=== PATIENT | male | born 1955 | race Caucasian/White ===

== ENCOUNTER 2018-03-22 07:38 | Inpatient (IN) | payer MEDICARE ==
[2018-03-22] MEDS ORDERED: DILTIAZEM DRIP BOLUS FROM BAG 1 MG SOLN IV ONE (08:08)
[2018-03-22 08:42] LABS: Albumin 3.7 g/dL (3.5-5.0); Calcium 8.3 mg/dL (8.4-10.2); Potassium 5.2 mmol/L (3.5-5.1); Total Bilirubin 2.2 mg/dL (0.2-1.3); Total Protein 6.5 g/dL (6.3-8.2)
[2018-03-22] MEDS ORDERED: FUROSEMIDE 10 MG/ML 4 ML VIAL IV STA (08:44)
[2018-03-22] MEDS: DILTIAZEM 50 MG in SODIUM CHLORIDE 0.9% 40 ML IV SCH ×3 (08:45→16:32)
[2018-03-22 08:51] LABS: Anisocytosis Slight; Basophils % (A) 0 %; Eosinophils % (A) 0 %; HCT 32.8 % (39.0-53.0); HGB 9.9 gm/dL (13.0-17.5); Hypochromasia Marked; Lymphocytes # (A) 0.4 k/uL (1.0-4.8); Lymphocytes % (A) 6 %; MCH 29.2 pg (25.0-35.0); MCHC 30.2 g/dL (31.0-37.0); MCV 96.8 fL (80.0-100.0); Macrocytosis Slight; Mean Platelet Volume 8.6; Monocytes # (A) 0.4 k/uL (0-1.0); Monocytes % (A) 5 %; Neutrophils # (A) 6.3 k/uL (1.3-7.7); Neutrophils % (A) 88 %; Platelet Count 164 k/uL (150-450); Poikilocytosis Slight; RBC 3.39 m/uL (4.30-5.90); WBC 7.2 k/uL (3.8-10.6)
--- NOTE | 2018-03-22 08:55 | XR ---
EXAMINATION TYPE: XR chest 2V DATE OF EXAM: 03/22/2018 COMPARISON: 06/08/2014 HISTORY: Shortness of breath for one week TECHNIQUE: Frontal and lateral views of the chest are obtained. FINDINGS: There is a new moderate right layering pleural effusion and associated right-sided airspac e disease. Heart appears enlarged in comparison to the prior. No new left-sided airspace disease. Mil d degenerative changes of the thoracic spine and acromioclavicular joints are present. IMPRESSION: 1. Apparent increase in degree of cardiomegaly. Echocardiogram could be performed to evaluate for per icardial effusion. 2. New moderate right pleural effusion and associated right basilar airspace disease, likely atelecta sis.
[2018-03-22 09:00] LABS: Polychromasia Present
[2018-03-22 09:06] LABS: Creatine Kinase MB 5.6 ng/mL (0.0-2.4); INR 1.6 (<1.2); Partial Thromboplastin Time 26.1 sec (22.0-30.0); Prothrombin Time 14.7 sec (9.0-12.0); Troponin I 0.025 ng/mL (0.000-0.034)
--- NOTE | 2018-03-22 09:20 | ED ---
General Adult HPI - General Chief complaint: Shortness of Breath Stated complaint: fluid retention Time Seen by Provider: 03/22/18 07:51 Source: patient, RN notes reviewed Mode of arrival: wheelchair Limitations: no limitations - History of Present Illness Initial comments: This a 63-year-old male presents emergency Department chief complaint of bilateral leg swelling, shortness of breath. Patient states this has progressively worsened over the last 1 week. Patient states that he has no history of CHF. He does admit that he does have A. fib currently takes Coumadin. Patient states that he had an echocardiogram at then last year. Patient states that he was told he had some mitral valve issues states that he was not informed that his ejection fracture was decreased. Patient denies any current chest pain. He does admit to some orthopnea and leg swelling has progressively worse especially in the right leg. Denies any pain associated. Patient denies fever, chills. Patient has a history of hypertension, A. fib and recent diagnosis of prostate cancer. - Related Data Home Medications Medication Instructions Recorded Confirmed Allopurinol [Zyloprim] 100 mg PO DAILY 03/22/18 03/22/18 Ascorbic Acid [Vitamin C] 500 mg PO DAILY 03/22/18 03/22/18 Atenolol [Tenormin] 50 mg PO DAILY 03/22/18 03/22/18 Cyanocobalamin (Vitamin B-12) 1,000 mcg PO DAILY 03/22/18 03/22/18 [Vitamin B-12] Magnesium Oxide [Mag-Ox] 250 mg PO DAILY 03/22/18 03/22/18 Niacin 500 mg PO DAILY 03/22/18 03/22/18 Potassium 99 mg PO DAILY 03/22/18 03/22/18 Warfarin [Coumadin] 6 mg PO DAILY 03/22/18 03/22/18 Allergies Allergy/AdvReac Type Severity Reaction Status Date / Time colchicine Allergy Unknown Verified 03/22/18 08:30 probenecid Allergy Unknown Verified 03/22/18 08:30 Review of Systems ROS Statement: Those systems with pertinent positive or pertinent negative responses have been documented in the HPI. ROS Other: All systems not noted in ROS Statement are negative. Past Medical History Past Medical History: Atrial Fibrillation, Hypertension Additional Past Medical History / Comment(s): Prostate CA (current; no current chemo or radiation.) History of Any Multi-Drug Resistant Organisms: None Reported Additional Past Surgical History / Comment(s): right hip, Past Psychological History: No Psychological Hx Reported Smoking Status: Former smoker Past Alcohol Use History: Occasional Past Drug Use History: None Reported General Exam Limitations: no limitations General appearance: alert, in no apparent distress Head exam: Present: atraumatic, normocephalic, normal inspection Neck exam: Present: normal inspection. Absent: tenderness, meningismus, lymphadenopathy Respiratory exam: Present: rales (Right). Absent: normal lung sounds bilaterally, respiratory distress, wheezes, rhonchi, stridor Cardiovascular Exam: Present: tachycardia, irregular rhythm, normal heart sounds. Absent: regular rate, normal rhythm, systolic murmur, diastolic murmur , rubs, gallop, clicks Extremities exam: Present: pedal edema (Bilateral pitting edema right greater than left pedal pulses equal) Skin exam: Present: warm, dry, intact, normal color. Absent: rash Course Vital Signs 03/22/18 03/22/18 03/22/18 07:45 08:20 08:25 Temperature 97.6 F Pulse Rate 72 129 H 110 H Respiratory 24 25 H 17 Rate Blood Pressure 140/98 O2 Sat by Pulse 97 89 L 87 L Oximetry 03/22/18 03/22/18 03/22/18 08:30 08:45 08:50 Temperature Pulse Rate 113 H 123 H 101 H Respiratory 18 22 24 Rate Blood Pressure 127/92 O2 Sat by Pulse 90 L 98 98 Oximetry EKG Findings - EKG Comments: EKG Findings:: EKG performed at 8:04 A. fib with RVR rate of 128 QRS 84 QT/QTC 326/475 Medical Decision Making - Lab Data Result diagrams: 03/22/18 08:14 03/22/18 08:14 Lab Results 03/22/18 03/22/18 03/22/18 Range/Units 08:14 08:14 08:14 WBC 7.2 (3.8-10.6) k/uL RBC 3.39 L (4.30-5.90) m/uL Hgb 9.9 L (13.0-17.5) gm/dL Hct 32.8 L (39.0-53.0) % MCV 96.8 (80.0-100.0) fL MCH 29.2 (25.0-35.0) pg MCHC 30.2 L (31.0-37.0) g/dL RDW 19.0 H (11.5-15.5) % Plt Count 164 (150-450) k/uL Neutrophils % 88 % Lymphocytes % 6 % Monocytes % 5 % Eosinophils % 0 % Basophils % 0 % Neutrophils # 6.3 (1.3-7.7) k/uL Lymphocytes # 0.4 L (1.0-4.8) k/uL Monocytes # 0.4 (0-1.0) k/uL Eosinophils # 0.0 (0-0.7) k/uL Basophils # 0.0 (0-0.2) k/uL Manual Slide Review Performed Polychromasia Present Hypochromasia Marked Poikilocytosis Slight Anisocytosis Slight Macrocytosis Slight PT (9.0-12.0) sec INR (<1.2) APTT (22.0-30.0) sec Sodium 130 L (137-145) mmol/L Potassium 5.2 H (3.5-5.1) mmol/L Chloride 95 L (98-107) mmol/L Carbon Dioxide 14 L (22-30) mmol/L Anion Gap 21 mmol/L BUN 28 H (9-20) mg/dL Creatinine 1.31 H (0.66-1.25) mg/dL Est GFR (CKD-EPI)AfAm 67 (>60 ml/min/1.73 sqM) Est GFR (CKD-EPI)NonAf 58 (>60 ml/min/1.73 sqM) Glucose 67 L (74-99) mg/dL Calcium 8.3 L (8.4-10.2) mg/dL Magnesium 2.0 (1.6-2.3) mg/dL Total Bilirubin 2.2 H (0.2-1.3) mg/dL AST 157 H (17-59) U/L ALT 67 (21-72) U/L Alkaline Phosphatase 132 H (38-126) U/L Total Creatine Kinase 110 (55-170) U/L CK-MB (CK-2) 5.6 H (0.0-2.4) ng/mL CK-MB (CK-2) Rel Index 5.1 Troponin I 0.025 (0.000-0.034) ng/mL NT-Pro-B Natriuret Pep pg/mL Total Protein 6.5 (6.3-8.2) g/dL Albumin 3.7 (3.5-5.0) g/dL 03/22/18 03/22/18 Range/Units 08:14 08:14 WBC (3.8-10.6) k/uL RBC (4.30-5.90) m/uL Hgb (13.0-17.5) gm/dL Hct (39.0-53.0) % MCV (80.0-100.0) fL MCH (25.0-35.0) pg MCHC (31.0-37.0) g/dL RDW (11.5-15.5) % Plt Count (150-450) k/uL Neutrophils % % Lymphocytes % % Monocytes % % Eosinophils % % Basophils % % Neutrophils # (1.3-7.7) k/uL Lymphocytes # (1.0-4.8) k/uL Monocytes # (0-1.0) k/uL Eosinophils # (0-0.7) k/uL Basophils # (0-0.2) k/uL Manual Slide Review Polychromasia Hypochromasia Poikilocytosis Anisocytosis Macrocytosis PT 14.7 H (9.0-12.0) sec INR 1.6 H (<1.2) APTT 26.1 (22.0-30.0) sec Sodium (137-145) mmol/L Potassium (3.5-5.1) mmol/L Chloride (98-107) mmol/L Carbon Dioxide (22-30) mmol/L Anion Gap mmol/L BUN (9-20) mg/dL Creatinine (0.66-1.25) mg/dL Est GFR (CKD-EPI)AfAm (>60 ml/min/1.73 sqM) Est GFR (CKD-EPI)NonAf (>60 ml/min/1.73 sqM) Glucose (74-99) mg/dL Calcium (8.4-10.2) mg/dL Magnesium (1.6-2.3) mg/dL Total Bilirubin (0.2-1.3) mg/dL AST (17-59) U/L ALT (21-72) U/L Alkaline Phosphatase (38-126) U/L Total Creatine Kinase (55-170) U/L CK-MB (CK-2) (0.0-2.4) ng/mL CK-MB (CK-2) Rel Index Troponin I (0.000-0.034) ng/mL NT-Pro-B Natriuret Pep 3900 pg/mL Total Protein (6.3-8.2) g/dL Albumin (3.5-5.0) g/dL Disposition Clinical Impression: Acute CHF, Atrial fibrillation with RVR, Dyspnea Disposition: ADMITTED IP TO THIS HOSP Condition: Fair Referrals: Abdullahi Brito MD [Primary Care Provider] - 1-2 days
[2018-03-22] MEDS ORDERED: HEPARIN SODIUM,PORCINE 5,000 UNIT/ML 1 ML VIAL IV ONE (10:02)
[2018-03-22] MEDS ORDERED: HEPARIN SODIUM,PORCINE 5,000 UNIT/ML 1 ML VIAL IV PRN (10:02)
[2018-03-22] MEDS: HEPARIN SOD,PORK IN 0.45% NACL 25,000 UNIT in 0.45% NACL 1 500ML.BAG IV SCH (10:48)
[2018-03-22] MEDS ORDERED: ATENOLOL 50 MG TAB PO SCH ×2 (12:30→21:00)
--- NOTE | 2018-03-22 12:36 | P.CRDCN ---
History of Present Illness Consult date: 03/22/18 Chief complaint: Progressive dyspnea History of present illness: This is a pleasant 63-year-old gentleman who does not believe that he does follow with any rail filler on a regular basis presented to the hospital complaining of progressive dyspnea. The patient's symptom of shortness of breath started about a week ago. But for the last 2 days it has been quite worse where he is even unable to cardiac conversation and 2 minor activities at home. Denies having any chest pain or chest discomfort. No prior history of congestive heart failure. No cough or wheezing. He did also state that he developed bilateral lower extremities edema. He gained weight but he does not exactly how much he gained. No dizziness or lightheadedness and no syncope. The patient is even having shortness of breath when he carried the conversation with me in the room. Beside that he does have diminished breathing sounds most prominent over the right lung. The patient does not have any history of coronary artery disease or congestive heart failure. He does have atrial fibrillation and known if it's paroxysmal or chronic. He is on oral anticoagulation at home. He is on Coumadin. Beside that he does have hypertension and he is overweight. He did undergo multiple noncardiac surgeries including hip and shoulder and also skin surgery for cancer. The patient does not smoke and does not drink alcohol. The chest x-ray when he presented to the hospital showed bilateral pleural effusion and finding consistent with CHF. The EKG showed atrial fibrillation with a rapid ventricular response and diffuse nonspecific ST and T wave abnormalities. The potassium is slightly elevated. The BNP came in to be around 3900s. The patient was admitted and was started on Lasix IV as well as Cardizem IV. The Coumadin is on hold and he is on heparin IV for possible having the fluid from the chest. Past Medical History Past Medical History: Atrial Fibrillation, Cancer, Hypertension Additional Past Medical History / Comment(s): Prostate CA diagnosed about 3 yrs ago and being monitored, some "mitral balve issue", skin cancer removals from face, chronic low back pain/DDD. History of Any Multi-Drug Resistant Organisms: None Reported Past Surgical History: Joint Replacement, Orthopedic Surgery Additional Past Surgical History / Comment(s): Total right hip arthroplasty, L knee reconstruction, R rotator cuff repair, pilonidial cystectomy, skin cancer removals from face, back injections. Past Anesthesia/Blood Transfusion Reactions: No Reported Reaction Additional Past Anesthesia/Blood Transfusion Reaction / Comment(s): Pt has received blood in past without reaction. Smoking Status: Former smoker - Past Family History Father Family Medical History: Dementia Additional Family Medical History / Comment(s): Father at the age of 72 yrs. Mother Family Medical History: AFIB Additional Family Medical History / Comment(s): Mother is 93 yrs old. Medications and Allergies Home Medications Medication Instructions Recorded Confirmed Type Allopurinol [Zyloprim] 100 mg PO DAILY 03/22/18 03/22/18 History Ascorbic Acid [Vitamin C] 500 mg PO DAILY 03/22/18 03/22/18 History Atenolol [Tenormin] 50 mg PO DAILY 03/22/18 03/22/18 History Cyanocobalamin (Vitamin B-12) 1,000 mcg PO DAILY 03/22/18 03/22/18 History [Vitamin B-12] Magnesium Oxide [Mag-Ox] 250 mg PO DAILY 03/22/18 03/22/18 History Niacin 500 mg PO DAILY 03/22/18 03/22/18 History Potassium 99 mg PO DAILY 03/22/18 03/22/18 History Warfarin [Coumadin] 6 mg PO DAILY 03/22/18 03/22/18 History Allergies Allergy/AdvReac Type Severity Reaction Status Date / Time colchicine Allergy Unknown Verified 03/22/18 08:30 probenecid Allergy Unknown Verified 03/22/18 08:30 Physical Exam Vitals: Vital Signs Temp Pulse Pulse Resp BP BP Pulse Ox 03/22/18 12:00 97.0 F L 99 24 108/88 100 03/22/18 11:51 98 24 03/22/18 11:00 93 18 117/99 99 03/22/18 09:00 105 H 18 127/92 98 03/22/18 08:50 101 H 24 127/92 98 03/22/18 08:45 123 H 22 98 03/22/18 08:30 113 H 18 90 L 03/22/18 08:25 110 H 17 87 L 03/22/18 08:20 129 H 25 H 89 L 03/22/18 07:45 97.6 F 72 24 140/98 97 Intake and Output 03/21/18 03/22/18 03/22/18 22:59 06:59 14:59 Intake Total 32.833 Balance 32.833 Intake: Intake, IV Titration 32.833 Amount Diltiazem 50 mg In Sodium 32.833 Chloride 0.9% 40 ml @ 10 MG/HR 10 mls/hr IV .Q5H [facility] Rx#:[id number] Other: Voiding Method Urinal Weight 95.254 kg - Constitutional General appearance: mild distress - Respiratory Respiratory: bilateral: diminished - Cardiovascular Rhythm: irregularly irregular Heart sounds: normal: S1, S2 Abnormal Heart Sounds: systolic murmur Results 03/22/18 08:14 03/22/18 08:14 Cardiac Enzymes 03/22/18 03/22/18 Range/Units 08:14 08:14 AST 157 H (17-59) U/L CK-MB (CK-2) 5.6 H (0.0-2.4) ng/mL Troponin I 0.025 (0.000-0.034) ng/mL Coagulation 03/22/18 Range/Units 08:14 PT 14.7 H (9.0-12.0) sec APTT 26.1 (22.0-30.0) sec CBC 03/22/18 Range/Units 08:14 WBC 7.2 (3.8-10.6) k/uL RBC 3.39 L (4.30-5.90) m/uL Hgb 9.9 L (13.0-17.5) gm/dL Hct 32.8 L (39.0-53.0) % Plt Count 164 (150-450) k/uL Comprehensive Metabolic Panel 03/22/18 Range/Units 08:14 Sodium 130 L (137-145) mmol/L Potassium 5.2 H (3.5-5.1) mmol/L Chloride 95 L (98-107) mmol/L Carbon Dioxide 14 L (22-30) mmol/L BUN 28 H (9-20) mg/dL Creatinine 1.31 H (0.66-1.25) mg/dL Glucose 67 L (74-99) mg/dL Calcium 8.3 L (8.4-10.2) mg/dL AST 157 H (17-59) U/L ALT 67 (21-72) U/L Alkaline Phosphatase 132 H (38-126) U/L Total Protein 6.5 (6.3-8.2) g/dL Albumin 3.7 (3.5-5.0) g/dL Current Medications Generic Name Dose Route Start Last Admin Trade Name Seanq PRN Reason Stop Dose Admin Allopurinol 100 mg 03/23/18 09:00 Zyloprim PO DAILY [facility] Atenolol 50 mg 03/22/18 12:30 Tenormin PO DAILY [facility] Furosemide 40 mg 03/22/18 21:00 Lasix IV Q12H [facility] Heparin Sodium (Porcine) 0 unit 03/22/18 10:02 Heparin IV PER PROTOCOL PRN Low PTT Protocol Diltiazem HCl 50 mg/ Sodium 50 mls @ 10 mls/hr 03/22/18 08:15 03/22/18 12:02 Chloride IV 10 mg/hr .Q5H [facility] 10 mls/hr Administration 10 MG/HR Heparin Sodium/Sodium Chloride 500 mls @ 20 mls/hr 03/22/18 10:15 03/22/18 10 :48 25,000 unit/ Sodium Chloride IV 10.5 units/kg/hr .Q24H [facility] 20 mls/hr Administration Protocol 10.5 UNITS/KG/HR Magnesium Oxide 400 mg 03/23/18 09:00 Mag-Ox PO DAILY [facility] Intake and Output 03/21/18 03/22/18 03/22/18 22:59 06:59 14:59 Intake Total 32.833 Balance 32.833 Intake: Intake, IV Titration 32.833 Amount Diltiazem 50 mg In Sodium 32.833 Chloride 0.9% 40 ml @ 10 MG/HR 10 mls/hr IV .Q5H [facility] Rx#:[id number] Other: Voiding Method Urinal Weight 95.254 kg Patient Weight 03/23/18 06:59 Weight 95.254 kg 03/22/18 08:14 03/22/18 08:14 Assessment and Plan Assessment: Assessment #1 congestive heart failure exacerbation unknown if it's due to systolic or diastole dysfunction with evidence of right and left heart failure #2 atrial fibrillation was rapid ventricular response #3 known atrial fibrillation, paroxysmal versus chronic #4 hypertension #5 obesity Plan #1 continue the patient on Lasix IV #2 continue monitor the kidney function and electrolytes #3 I would increase the dose of atenolol and try to wean the patient from Cardizem IV #4 continue heparin IV for now until we know if the patient need pleurocentesis #5 obtain an echocardiogram was Doppler #6 follow-up with the patient. Thank you for allowing us participate in his care and we will continue following up with the patient
[2018-03-22] MEDS: ALLOPURINOL 100 MG TAB PO SCH (12:52)
[2018-03-22] MEDS: traMADol 50 MG TAB PO PRN ×3 (12:52→23:33)
[2018-03-22] MEDS: ATENOLOL 50 MG TAB PO SCH ×2 (12:54→19:05)
[2018-03-22] MEDS ORDERED: traMADol 50 MG TAB PO SCH (13:00)
--- NOTE | 2018-03-22 14:15 | ECHOF ---
Referral Reason:CHF MEASUREMENTS -------- HEIGHT: 175.3 cm WEIGHT: 95.3 kg BP: 108/88 IVSd: 1.1 cm (0.6 - 1.1) LVIDd: 6.2 cm (3.9 - 5.3) LVPWd: 1.1 cm (0.6 - 1.1) IVSs: 1.0 cm LVIDs: 6.0 cm LVPWs: 1.3 cm RVIDd: 3.7 cm (< 3.3) LAESV Index (A-L): 45.58 ml/m Ao Diam: 3.7 cm (2.0 - 3.7) LA Diam: 4.3 cm (2.7 - 3.8) AV Cusp: 2.3 cm (1.5 - 2.6) MV E Donny: 0.77 m/s MV DecT: 243 ms MV A Donny: 0.00 m/s MV E/A Ratio: 239.69 RAP: 5.00 mmHg RVSP: 41.81 mmHg FINDINGS -------- Atrial fibrillation. This was a technically adequate study. The left ventricle is mildly dilated. Left ventricular wall thickness is normal. There is severe global hypokinesis of LV . Overall left ventricular systolic function is severely impaired with, an EF < 20%. The right ventricle is mild to moderately enlarged. LA is severely dilated >40 ml/m2 The right atrium is markedly enlarged. Aortic valve is trileaflet and is mildly thickened. Trace to mild aortic regurgitation. There is no evidence of aortic stenosis. The mitral valve leaflets are mildly thickened. Mild mitral annular calcification present. Modera [id number] mitral regurgitation is present. Mild tricuspid regurgitation present. There is mild pulmonary hypertension. The right ventricular systolic pressure, as measured by Doppler, is 41.81mmHg. Trace/mild (physiologic) pulmonic regurgitation. The aortic root is mildy dilated, up to 4.2 cm. IVC Not well visulized. There is no pericardial effusion. CONCLUSIONS -------- 1. Atrial fibrillation. 2. This was a technically adequate study. 3. The left ventricle is mildly dilated. 4. Left ventricular wall thickness is normal. 5. There is severe global hypokinesis of LV . 6. Overall left ventricular systolic function is severely impaired with, an EF < 20%. 7. The right ventricle is mild to moderately enlarged. 8. LA is severely dilated >40 ml/m2 9. The right atrium is markedly enlarged. 10. Aortic valve is trileaflet and is mildly thickened. 11. Trace to mild aortic regurgitation. 12. The mitral valve leaflets are mildly thickened. 13. Mild mitral annular calcification present. 14. [id number] mitral regurgitation is present. 15. Mild tricuspid regurgitation present. 16. There is mild pulmonary hypertension. 17. The right ventricular systolic pressure, as measured by Doppler, is 41.81mmHg. 18. Trace/mild (physiologic) pulmonic regurgitation. 19. The aortic root is mildy dilated, up to 4.2 cm. 20. IVC Not well visulized. 21. There is no pericardial effusion. [employer]: Bradly Bahena RDCS
[2018-03-22 17:00] LABS: Glucose,Whole Blood 117 mg/dL (75-99)
[2018-03-22] MEDS ORDERED: WARFARIN 3 MG TAB PO SCH (18:00)
[2018-03-22] MEDS ORDERED: FUROSEMIDE 10 MG/ML 4 ML VIAL IV SCH ×2 (19:15→21:00)
[2018-03-22] MEDS: CYCLOBENZAPRINE 10 MG TAB PO SCH (22:23)
--- NOTE | 2018-03-22 22:49 | HP ---
HISTORY AND PHYSICAL CHIEF COMPLAINT: Shortness of breath. HISTORY OF PRESENT ILLNESS: This is a 63-year-old gentleman who presents to the emergency room because of shortness of breath. The patient had called yesterday that he wanted to see a right of way man. The patient was offered to come to the office to be seen prior to making an appointment with a right of way man. However, he declined, saying that he was too weak to come to the office. He was offered to go to the emergency room because he did seem to be somewhat dyspneic on the phone. The patient declined to do that, either. The patient has a known history of atrial fibrillation. He has seen a right of way man in the past. The patient has a history of previous alcohol dependency, which he has stopped for the past 2 years. He does have a history of hypertension. No history of any other coronary artery disease. The patient said that 6 days ago he suddenly started feeling weak and tired and became edematous with increased shortness of breath. He denied any fever or chills. The patient says about 2 weeks ago he had fallen and injured his left leg and there had been some ecchymosis but no other injury. The patient at the time of exam in the emergency room is noted to be tachycardic with atrial fibrillation, rapid ventricular rate. The patient also has significant evidence of anasarca. The patient was admitted to the hospital, was seen by Cardiology. Patient was placed on Cardizem drip, which has been discontinued, as the patient's heart rate has gone down to the 40s. Patient denied any anginal symptoms. Does have some orthopnea. The patient is on anticoagulation due to atrial fibrillation. PAST MEDICAL HISTORY: Significant for: 1. Chronic atrial fibrillation. 2. Hypertension. 3. Previous history of alcohol dependency. 4. Chronic degenerative disc disease and degenerative joint disease of the lumbosacral spine. 5. History of gout. 6. History of carcinoma of the prostate, [place] 6, under surveillance. PAST SURGICAL HISTORY: Negative for any major surgeries. PERSONAL HISTORY: Never a smoker. Alcohol use: None for the past about 2 years. SOCIAL HISTORY: Patient is single. Lives alone. FAMILY MEDICAL HISTORY: Brother who has had a history of mitral valve prolapse and required surgical correction. He also has chronic atrial fibrillation. Mother has history of chronic atrial fibrillation, atherosclerotic heart disease and chronic kidney disease. REVIEW OF SYSTEMS: NEURO: Denies any headaches, dizziness, double vision, blurred vision. No symptoms of TIA or syncope or seizure. Episodes of getting diaphoretic and cyanotic. PSYCH: No anxiety. CARDIAC: Denies chest pain, angina, palpitations. RESPIRATORY: Present complaint of shortness of breath. No cough or hemoptysis. GI: No nausea, vomiting. Decreased appetite. No abdominal pain. Does feel bloated. No bowel movement. : No symptoms of dysuria, hematuria. Has decreased urine output. EXTREMITIES: Significant edema. CONSTITUTIONAL: No fever or chills. HEMATOLOGICAL: No anemia or bleeding. SKIN: Denies any open sores. PHYSICAL EXAMINATION: This is a 63-year-old gentleman who appears acutely ill. Vital signs reveal temperature 97.5, pulse 54, respirations 20, blood pressure 107/67, pulse ox 98% on 4 L. HEENT: Normocephalic. Conjunctivae pink. Sclerae are nonicteric. Neck reveals 1+ JVD. No carotid bruits. CHEST EXAMINATION: Dullness to percussion almost half-way up the lung. Decreased air flow. CARDIAC: Distant sounds S1, S2 with no gallop. Systolic murmur 2/6, left sternal border. Abdomen is protuberant, tight, soft. Bowel sounds are normal. Extremities reveal 4+ edema. Neurologically awake, alert, oriented with well-coordinated movements. LABORATORY ASSESSMENT: Hemoglobin 9.9, white count 7.2, platelets 164. INR 1.6. Sodium 130, potassium 5.2, chloride 95, CO2 content 14, anion gap of 21, BUN 28, creatinine 1.31, AST 157, ALT 67, alkaline phosphatase 132. Troponin 0.025. BNP is 3900. D-dimer 0.46. Chest x-ray reveals right pleural effusion. Chest x-ray shows increase in degree of cardiomegaly, moderate right pleural effusion associated with right basilar airspace disease; no new left-sided airspace disease is noted. Echocardiogram reveals patient in atrial fibrillation, ejection fraction less than 20%, severe global hypokinesis, mild aortic regurgitation, moderate to severe mitral regurgitation, mild pulmonary hypertension, aortic root mildly dilated up to 4.2 cm. IVC was not well visualized. ASSESSMENT: 1. Acute congestive cardiac failure secondary to systolic dysfunction. 2. Dilated cardiomyopathy, etiology unclear. 3. Atrial fibrillation with rapid ventricular rate. 4. Mild acidosis related to probably generalized low cardiac output status. 5. Chronic kidney disease. PLAN: The patient was seen by Cardiology. Aggressive diuresis. Will place a Klein catheter for more accurate measurement and comfort of the patient. Patient's prognosis remains guarded. Discussed condition with the patient. MMODL / IJN: [id number] /
[2018-03-22] MEDS ORDERED: FUROSEMIDE 10 MG/ML 10 ML VIAL ONE (22:59)
[2018-03-22 23:09] LABS: Calcium 8.1 mg/dL (8.4-10.2); Potassium 5.7 mmol/L (3.5-5.1)
[2018-03-22] MEDS: FUROSEMIDE 10 MG/ML 10 ML VIAL IV SCH (23:34)
[2018-03-23 02:30] LABS: Glucose,Whole Blood 127 mg/dL (75-99)
[2018-03-23] MEDS ORDERED: NALOXONE 0.4 MG/ML 1 ML VIAL IV PRN (02:32)
[2018-03-23 05:48] LABS: Anisocytosis Slight; Basophils % (A) 0 %; Eosinophils % (A) 0 %; HCT 32.2 % (39.0-53.0); HGB 9.5 gm/dL (13.0-17.5); Hypochromasia Marked; Lymphocytes # (A) 0.5 k/uL (1.0-4.8); Lymphocytes % (A) 6 %; MCH 28.8 pg (25.0-35.0); MCHC 29.6 g/dL (31.0-37.0); Macrocytosis Slight; Mean Platelet Volume 8.8; Monocytes # (A) 0.5 k/uL (0-1.0); Monocytes % (A) 7 %; Neutrophils # (A) 6.8 k/uL (1.3-7.7); Neutrophils % (A) 85 %; Platelet Count 153 k/uL (150-450); RBC 3.32 m/uL (4.30-5.90); RDW 19.3 % (11.5-15.5); WBC 7.9 k/uL (3.8-10.6)
[2018-03-23 06:03] LABS: Calcium 8.2 mg/dL (8.4-10.2); Magnesium 2.1 mg/dL (1.6-2.3); Phosphorus 7.2 mg/dL (2.5-4.5); Potassium 5.6 mmol/L (3.5-5.1)
[2018-03-23] MEDS: PANTOPRAZOLE 40 MG TABLET PO SCH (06:44)
[2018-03-23] MEDS: traMADol 50 MG TAB PO PRN (06:46)
--- NOTE | 2018-03-23 07:56 | P.PN ---
Subjective Progress Note Date: 03/23/18 Principal diagnosis: Congestive heart failure exacerbation secondary to systolic dysfunction This is a pleasant 63-year-old gentleman who does not believe that he does follow with any [facility] [employer] on a regular basis presented to the hospital complaining of progressive dyspnea. The patient's symptom of shortness of breath started about a week ago. But for the last 2 days it has been quite worse where he is even unable to cardiac conversation and 2 minor activities at home. Denies having any chest pain or chest discomfort. No prior history of congestive heart failure. No cough or wheezing. He did also state that he developed bilateral lower extremities edema. He gained weight but he does not exactly how much he gained. No dizziness or lightheadedness and no syncope. The patient is even having shortness of breath when he carried the conversation with me in the room. Beside that he does have diminished breathing sounds most prominent over the right lung. The patient does not have any history of coronary artery disease or congestive heart failure. He does have atrial fibrillation and known if it's paroxysmal or chronic. He is on oral anticoagulation at home. He is on Coumadin. Beside that he does have hypertension and he is overweight. The chest x-ray when he presented to the hospital showed bilateral pleural effusion and finding consistent with CHF. The EKG showed atrial fibrillation with a rapid ventricular response and diffuse nonspecific ST and T wave abnormalities. The potassium is slightly elevated. The BNP came in to be around 3900s. I'll follow-up with the patient today, clinically he looks better. He is not as in distress as yesterday. Physical examination is also better in terms of less crackles and wheezing. The urine output has been marginal and the creatinine is worse. He was hypotensive yesterday. Nephrology was consulted to evaluate the patient. He continues to be in atrial fibrillation with controlled heart rate at this point and continues to be on anticoagulation with heparin IV. He underwent an echocardiogram and that revealed severely impaired LV function with EF around 20% with moderate to severe MR. The patient did admit that he drinks vodka and I think the cardiomyopathy is likely to be nonischemic and alcohol related. Objective - Vital Signs Vital signs: Vital Signs Temp 97.6 F 03/23/18 02:26 Pulse 76 03/23/18 07:00 Resp 30 H 03/23/18 07:00 BP 97/71 03/23/18 07:00 Pulse Ox 98 03/23/18 07:00 Intake & Output 03/22/18 03/23/18 03/23/18 18:59 06:59 18:59 Intake Total 449.167 300 30 Output Total 500 130 0 Balance -50.833 170 30 Weight 95.254 kg Intake: IV 300 30 .9 100 10 Heparin Sod,Pork in 0.45% 200 20 NaCl 25,000 unit In 0.45 % NaCl 1 500ml.bag @ 10.5 UNITS/KG/HR 20 mls/hr IV .Q24H DINORAH Rx#:[id number] Intake, IV Titration 239.167 Amount Diltiazem 50 mg In Sodium 86.500 Chloride 0.9% 40 ml @ 10 MG/HR 10 mls/hr IV .Q5H [facility]OR[facility] Rx#:[id number] Heparin Sod,Pork in 0.45% 152.667 NaCl 25,000 unit In 0.45 % NaCl 1 500ml.bag @ 10.5 UNITS/KG/HR 20 mls/hr IV .Q24H DINORAH Rx#:[id number] Oral 210 Output: Urine 500 130 0 Uretheral (Klein) 50 Other: Voiding Method Urinal Indwelling Catheter # Voids 2 - Constitutional General appearance: Present: no acute distress - Respiratory Respiratory: bilateral: diminished - Cardiovascular Rhythm: irregularly irregular Heart sounds: normal: S1, S2 - Labs CBC & Chem 7: 03/23/18 05:02 03/23/18 05:02 Labs: Abnormal Lab Results - Last 24 Hours (Table) 03/22/18 03/22/18 03/22/18 Range/Units 08:14 08:14 08:14 RBC 3.39 L (4.30-5.90) m/uL Hgb 9.9 L (13.0-17.5) gm/dL Hct 32.8 L (39.0-53.0) % MCHC 30.2 L (31.0-37.0) g/dL RDW 19.0 H (11.5-15.5) % Lymphocytes # 0.4 L (1.0-4.8) k/uL PT (9.0-12.0) sec INR (<1.2) APTT (22.0-30.0) sec Sodium 130 L (137-145) mmol/L Potassium 5.2 H (3.5-5.1) mmol/L Chloride 95 L (98-107) mmol/L Carbon Dioxide 14 L (22-30) mmol/L BUN 28 H (9-20) mg/dL Creatinine 1.31 H (0.66-1.25) mg/dL Glucose 67 L (74-99) mg/dL POC Glucose (mg/dL) (75-99) mg/dL Calcium 8.3 L (8.4-10.2) mg/dL Phosphorus (2.5-4.5) mg/dL Total Bilirubin 2.2 H (0.2-1.3) mg/dL AST 157 H (17-59) U/L Alkaline Phosphatase 132 H (38-126) U/L CK-MB (CK-2) 5.6 H (0.0-2.4) ng/mL 03/22/18 03/22/18 03/22/18 Range/Units 08:14 16:15 16:40 RBC (4.30-5.90) m/uL Hgb (13.0-17.5) gm/dL Hct (39.0-53.0) % MCHC (31.0-37.0) g/dL RDW (11.5-15.5) % Lymphocytes # (1.0-4.8) k/uL PT 14.7 H (9.0-12.0) sec INR 1.6 H (<1.2) APTT 50.8 H (22.0-30.0) sec Sodium (137-145) mmol/L Potassium (3.5-5.1) mmol/L Chloride (98-107) mmol/L Carbon Dioxide (22-30) mmol/L BUN (9-20) mg/dL Creatinine (0.66-1.25) mg/dL Glucose (74-99) mg/dL POC Glucose (mg/dL) 117 H (75-99) mg/dL Calcium (8.4-10.2) mg/dL Phosphorus (2.5-4.5) mg/dL Total Bilirubin (0.2-1.3) mg/dL AST (17-59) U/L Alkaline Phosphatase (38-126) U/L CK-MB (CK-2) (0.0-2.4) ng/mL 03/22/18 03/23/18 03/23/18 Range/Units 22:36 02:28 05:02 RBC (4.30-5.90) m/uL Hgb (13.0-17.5) gm/dL Hct (39.0-53.0) % MCHC (31.0-37.0) g/dL RDW (11.5-15.5) % Lymphocytes # (1.0-4.8) k/uL PT (9.0-12.0) sec INR (<1.2) APTT 42.2 H (22.0-30.0) sec Sodium 129 L (137-145) mmol/L Potassium 5.7 H (3.5-5.1) mmol/L Chloride 93 L (98-107) mmol/L Carbon Dioxide 20 L (22-30) mmol/L BUN 38 H (9-20) mg/dL Creatinine 1.78 H (0.66-1.25) mg/dL Glucose 128 H (74-99) mg/dL POC Glucose (mg/dL) 127 H (75-99) mg/dL Calcium 8.1 L (8.4-10.2) mg/dL Phosphorus (2.5-4.5) mg/dL Total Bilirubin (0.2-1.3) mg/dL AST (17-59) U/L Alkaline Phosphatase (38-126) U/L CK-MB (CK-2) (0.0-2.4) ng/mL 03/23/18 03/23/18 Range/Units 05:02 05:02 RBC 3.32 L (4.30-5.90) m/uL Hgb 9.5 L (13.0-17.5) gm/dL Hct 32.2 L (39.0-53.0) % MCHC 29.6 L (31.0-37.0) g/dL RDW 19.3 H (11.5-15.5) % Lymphocytes # 0.5 L (1.0-4.8) k/uL PT (9.0-12.0) sec INR (<1.2) APTT (22.0-30.0) sec Sodium 129 L (137-145) mmol/L Potassium 5.6 H (3.5-5.1) mmol/L Chloride 93 L (98-107) mmol/L Carbon Dioxide 20 L (22-30) mmol/L BUN 44 H (9-20) mg/dL Creatinine 2.23 H (0.66-1.25) mg/dL Glucose 119 H (74-99) mg/dL POC Glucose (mg/dL) (75-99) mg/dL Calcium 8.2 L (8.4-10.2) mg/dL Phosphorus 7.2 H (2.5-4.5) mg/dL Total Bilirubin (0.2-1.3) mg/dL AST (17-59) U/L Alkaline Phosphatase (38-126) U/L CK-MB (CK-2) (0.0-2.4) ng/mL Assessment and Plan Assessment: Assessment #1 congestive heart failure exacerbation unknown if it's due to systolic or diastole dysfunction with evidence of right and left heart failure #2 atrial fibrillation was rapid ventricular response #3 severe cardiomyopathy likely to be nonischemic #4 moderate to severe mitral regurgitation #5 acute on chronic renal failure Plan #1 continue the current dose of Lasix. Nephrology was consulted to see the patient regarding acute on chronic renal failure which is likely related to hypotension #2 continue the atenolol for heart rate control and hold for any systolic blood pressure below 90 mmHg #3 continue anticoagulation with heparin IV. The patient possibly needs pleurocentesis #4 the echocardiogram revealed severe cardiomyopathy. He needs to be on BERNARDA inhibitor as well as Aldactone once his creatinine improved and blood pressure improved as well #5 follow-up with the patient.
[2018-03-23] MEDS ORDERED: ALLOPURINOL 100 MG TAB PO SCH (09:00)
[2018-03-23] MEDS ORDERED: FAMOTIDINE 20 MG TAB PO SCH (09:00)
[2018-03-23 09:09] LABS: INR 2.3 (<1.2); Prothrombin Time 20.5 sec (9.0-12.0)
--- NOTE | 2018-03-23 09:21 | XR ---
EXAMINATION TYPE: XR chest 1V portable DATE OF EXAM: 03/23/2018 COMPARISON: Prior chest x-ray 03/22/2018 HISTORY: Shortness of breath TECHNIQUE: Single frontal view of the chest is obtained. FINDINGS: Similar findings. Right hemidiaphragm and heart border are obscured. Heart is likely enlar ged. No evident pneumothorax. There are overlying cardiac leads. Pulmonary vascularity and bill are s table. IMPRESSION: Suspect right lower lobe atelectasis and associated effusion, correlate to exclude pneum onia. Follow-up to resolution to exclude underlying mass. Cardiomegaly.
[2018-03-23] MEDS: SODIUM CHLORIDE 0.9% 1,000 ML IV SCH (09:47)
[2018-03-23] MEDS: ALLOPURINOL 100 MG TAB PO SCH (09:51)
[2018-03-23] MEDS: DOCUSATE 100 MG CAP PO SCH ×2 (09:52→20:28)
[2018-03-23] MEDS: FUROSEMIDE 10 MG/ML 10 ML VIAL IV SCH (09:52)
[2018-03-23] MEDS: MAGNESIUM OXIDE 400 MG TAB PO SCH (09:53)
[2018-03-23] MEDS: ATENOLOL 50 MG TAB PO SCH ×2 (10:24→21:02)
[2018-03-23] MEDS ORDERED: SODIUM BICARB 8.4% 50 ML SYR (1 MEQ/ML) IV ONE ×2 (10:25→11:33)
--- NOTE | 2018-03-23 10:46 | P.CNPUL ---
History of Present Illness Consult date: 03/23/18 Reason for consult: dyspnea, pleural effusion History of present illness: This is a 63-year-old male patient was had a poor health condition due to his chronic alcoholism, who presented to the hospital few days back because of worsening shortness of breath, exertional dyspnea, orthopnea, progressive lower extremity edema and his symptoms were typical of congestion heart failure. Furthermore, the patient was confirmed to have heart failure and the echocardiogram showed severe cardiomyopathy with an ejection fraction of less than 20% and the patient was found to have moderate to severe mitral regurgitation and moderate degree of pulmonary hypertension. He had significant amount of tricuspid regurgitation in addition. He had global hypokinesis. His BNP level at time of admission was 3900. He is free of any chest pain. He was found to be in atrial fibrillation. This is a chronic problem. The patient was taking Coumadin on outpatient basis and his INR at time of admission was 1.6. Currently remains in atrial fibrillation and his rate is controlled with use of atenolol 50 mg by mouth twice a day. He is also on IV heparin and the Coumadin has been discontinued. He has significant lower extremity edema. He has developed an acute kidney injury related to ATN/ cardiorenal factors as the patient is being diuresis with Lasix 80 mg IV push every 12 hours and despite that amount of urine output has been limited. This patient a chance to the intensive care unit yesterday. Apparently he was having episodes of bradycardia. I limited the rhythm strips and the patient was having atrial fibrillation with low rate essentially the mid 40s. No evidence of any AV block's or third-degree AV block. During this time the patient was becoming symptomatic when he would also become briefly unresponsive and diaphoretic, a presyncope-like of picture. The patient would also get episodically hypoxemic. Limited amount of activity would make him drop his pulse ox of the mid 70s. He is currently placed on oxygen at 5 L to maintain a saturation above 90%. Nevertheless, as mentioned, even while trying to get up and sitting up in a sitting position the patient would desaturate easily and it' ll take him probably a minute or 2 to recover from his oxygen desaturation. As such she has very limited reserve. He continues to have edematous lower extremity edema. Denies having any chest pain. He has history of smoking has history of COPD. The chest x-ray was obtained yesterday showed evidence of a moderate-sized right-sided pleural effusion. Review of Systems Constitutional: Reports fatigue, Reports lethargy, Reports weakness Eyes: denies blurred vision, denies bulging eye, denies decreased vision Ears: deny: decreased hearing, ear discharge, earache, tinnitus Ears, nose, mouth and throat: Denies headache, Denies sore throat Cardiovascular: Reports decreased exercise tolerance, Reports dyspnea on exertion, Reports edema, Reports irregular heart beat, Reports leg edema, Reports lightheadedness, Reports orthopnea, Reports palpitations, Reports paroxysmal nocturnal dyspnea, Reports rapid heart beat, Reports shortness of breath Respiratory: Reports dyspnea Gastrointestinal: Denies abdominal pain, Denies diarrhea, Denies nausea, Denies vomiting Genitourinary: Reports as per HPI Musculoskeletal: Reports as per HPI Musculoskeletal: bilateral: ankle swelling, absent: ankle pain, ankle stiffness Integumentary: Denies pruritus, Denies rash Neurological: Reports change in mentation, Reports weakness Psychiatric: Reports confusion Endocrine: Reports fatigue Hematologic/Lymphatic: Reports as per HPI Allergic/Immunologic: Reports as per HPI Past Medical History Past Medical History: Atrial Fibrillation, Cancer, Hypertension Additional Past Medical History / Comment(s): Congestion heart failure, prostate cancer diagnosed 3 years ago, known history of valvular heart disease with mitral valve regurgitation, skin cancer was resected from the face, chronic alcoholism, chronic smoking, chronic back pain, degenerative arthritis, chronic atrial fibrillation, hypertension History of Any Multi-Drug Resistant Organisms: None Reported Past Surgical History: Joint Replacement, Orthopedic Surgery Additional Past Surgical History / Comment(s): Total right hip arthroplasty, L knee reconstruction, R rotator cuff repair, pilonidial cystectomy, skin cancer removals from face, back injections. Past Anesthesia/Blood Transfusion Reactions: No Reported Reaction Additional Past Anesthesia/Blood Transfusion Reaction / Comment(s): Pt has received blood in past without reaction. Smoking Status: Former smoker Past Alcohol Use History: Heavy - Past Family History Father Family Medical History: Dementia Additional Family Medical History / Comment(s): Father at the age of 72 yrs. Mother Family Medical History: AFIB Additional Family Medical History / Comment(s): Mother is 93 yrs old. Medications and Allergies Home Medications Medication Instructions Recorded Confirmed Type Allopurinol [Zyloprim] 100 mg PO DAILY 03/22/18 03/22/18 History Ascorbic Acid [Vitamin C] 500 mg PO DAILY 03/22/18 03/22/18 History Atenolol [Tenormin] 50 mg PO DAILY 03/22/18 03/22/18 History Cyanocobalamin (Vitamin B-12) 1,000 mcg PO DAILY 03/22/18 03/22/18 History [Vitamin B-12] Magnesium Oxide [Mag-Ox] 250 mg PO DAILY 03/22/18 03/22/18 History Niacin 500 mg PO DAILY 03/22/18 03/22/18 History Potassium 99 mg PO DAILY 03/22/18 03/22/18 History Warfarin [Coumadin] 6 mg PO DAILY 03/22/18 03/22/18 History Allergies Allergy/AdvReac Type Severity Reaction Status Date / Time colchicine Allergy Unknown Verified 03/22/18 08:30 probenecid Allergy Unknown Verified 03/22/18 08:30 Physical Exam Vitals: Vital Signs Temp Pulse Pulse Resp BP BP Pulse Ox 03/23/18 07:00 76 30 H 97/71 98 03/23/18 06:00 63 24 108/72 100 03/23/18 05:00 68 25 H 107/76 94 L 03/23/18 04:00 64 18 91/64 100 03/23/18 03:00 65 24 100/84 98 03/23/18 02:26 97.6 F 80 23 100/84 94 L 03/23/18 00:00 97.4 F L 63 24 103/70 96 03/22/18 19:22 97.5 F L 54 L 20 107/67 98 03/22/18 15:35 96 20 102/66 100 03/22/18 15:33 99 20 03/22/18 12:00 97.0 F L 99 24 108/88 100 03/22/18 11:51 98 24 03/22/18 11:15 123/90 99 03/22/18 11:00 93 18 117/99 99 Intake and Output 03/22/18 03/23/18 03/23/18 22:59 06:59 14:59 Intake Total 256.334 300 339 Output Total 500 130 0 Balance -243.666 170 339 Intake: IV 300 30 .9 100 10 Heparin Sod,Pork in 0.45% 200 20 NaCl 25,000 unit In 0.45 % NaCl 1 500ml.bag @ 10.5 UNITS/KG/HR 20 mls/hr IV .Q24H [facility] Rx#:[id number] Intake, IV Titration 206.334 309 Amount Diltiazem 50 mg In Sodium 53.667 Chloride 0.9% 40 ml @ 10 MG/HR 10 mls/hr IV .Q5H [facility] Rx#:[id number] Heparin Sod,Pork in 0.45% 152.667 309 NaCl 25,000 unit In 0.45 % NaCl 1 500ml.bag @ 10.5 UNITS/KG/HR 20 mls/hr IV .Q24H [facility] Rx#:[id number] Oral 50 Output: Urine 500 130 0 Uretheral (Klein) 50 Other: Voiding Method Indwelling Catheter Indwelling Catheter # Voids 2 Gen. appearance the patient is a mild degree of respiratory distress even at rest. As mentioned he has very limited reserve and is unable to do any activities because of shortness of breath and desaturation. Head exam was generally normal. There was no scleral icterus or corneal arcus. Mucous membranes were moist. Neck was supple and with jugular venous distension, thyromegaly, or carotid bruits. Carotids were easily palpable bilaterally. There was no adenopathy. Lungs sounds are diminished vision the right lung base along with some minimal bibasilar crackles and dullness in the right lung basilar area Heart sounds are irregular, positive S1-S2 and there is an S3 gallop. Overall heart sounds are distant. No significant right ventricular heave or thrill. There is a systolic ejection murmur grade 3/6 heard along the left sternal border. Abdominal exam revealed normal bowel sounds. The abdomen was soft, non-tender, and without masses, organomegaly, or appreciable enlargement of the abdominal aorta. Extremities revealed +1 to +2 pitting edema. There is no cyanosis or clubbing at this point. No open wounds or ulcerations. Neurologically the patient was awake and alert at a time of my evaluation he had no focal neurological deficit. Nevertheless I was told that the patient was on and off having episodes of confusion. Examination of the skin revealed no evidence of significant rashes, suspicious appearing nevi or other concerning lesions. Results - Laboratory Findings CBC and BMP: 03/23/18 05:02 03/23/18 05:02 PT/INR, D-dimer PT 20.5 sec (9.0-12.0) H 03/23/18 05:02 INR 2.3 (<1.2) H 03/23/18 05:02 D-Dimer 0.46 mg/L FEU (<0.60) 03/22/18 16:15 Abnormal lab findings: Abnormal Labs 03/22/18 03/22/18 03/22/18 08:14 08:14 08:14 RBC 3.39 L Hgb 9.9 L Hct 32.8 L MCHC 30.2 L RDW 19.0 H Lymphocytes # 0.4 L PT INR APTT Sodium 130 L Potassium 5.2 H Chloride 95 L Carbon Dioxide 14 L BUN 28 H Creatinine 1.31 H Glucose 67 L POC Glucose (mg/dL) Calcium 8.3 L Phosphorus Total Bilirubin 2.2 H AST 157 H Alkaline Phosphatase 132 H CK-MB (CK-2) 5.6 H 03/22/18 03/22/18 03/22/18 08:14 16:15 16:40 RBC Hgb Hct MCHC RDW Lymphocytes # PT 14.7 H INR 1.6 H APTT 50.8 H Sodium Potassium Chloride Carbon Dioxide BUN Creatinine Glucose POC Glucose (mg/dL) 117 H Calcium Phosphorus Total Bilirubin AST Alkaline Phosphatase CK-MB (CK-2) 03/22/18 03/23/18 03/23/18 22:36 02:28 05:02 RBC Hgb Hct MCHC RDW Lymphocytes # PT INR APTT 42.2 H Sodium 129 L Potassium 5.7 H Chloride 93 L Carbon Dioxide 20 L BUN 38 H Creatinine 1.78 H Glucose 128 H POC Glucose (mg/dL) 127 H Calcium 8.1 L Phosphorus Total Bilirubin AST Alkaline Phosphatase CK-MB (CK-2) 03/23/18 03/23/18 03/23/18 05:02 05:02 05:02 RBC 3.32 L Hgb 9.5 L Hct 32.2 L MCHC 29.6 L RDW 19.3 H Lymphocytes # 0.5 L PT 20.5 H INR 2.3 H APTT Sodium 129 L Potassium 5.6 H Chloride 93 L Carbon Dioxide 20 L BUN 44 H Creatinine 2.23 H Glucose 119 H POC Glucose (mg/dL) Calcium 8.2 L Phosphorus 7.2 H Total Bilirubin AST Alkaline Phosphatase CK-MB (CK-2) - Diagnostic Findings Chest x-ray: image reviewed Assessment and Plan Plan: Assessment 1 acute on chronic systolic heart failure with global hypokinesis and ejection fraction of 20%, consider ischemic versus nonischemic cardiomyopathy as the patient may have an underlying coronary artery disease. He has has no history of alcoholism. 2 moderate severe mitral regurgitation 3 moderate to severe pulmonary hypertension secondary to left-sided heart failure and mitral valve disease 4 moderate-sized right-sided pleural effusion 5 chronic atrial fibrillation 6 acute on chronic hypoxic arrest 30 failure. The respiratory failure secondary to above-mentioned factors in addition the right-sided pleural effusion is probably contributing to the patient's hypoxemia. Another consideration is shunting, possibly intracardiac shunt that could potentially contributing to hypoxemia the patient's hypoxemia is out of proportion to his pulmonary findings and the extent of pleural fluid the cannulation in the right hemithorax. 7 alcoholism 8 acute kidney injury, secondary to ATN and cardiio renal factors 9 chronic normocytic anemia 10 chronic lower extremity edema 11 hyponatremia secondary to cardiomyopathy/CHF 12 metabolic acidosis with a small anion gap 13 hyperkalemia 14 episodes of bradycardia with a A. fib rhythm, symptomatic 15 prostate cancer Plan This is a critically ill 53-year-old male patient and active issue for now as his advanced cardiomyopathy. As far as his pulmonary status, the patient is doing well on 5 L and as mentioned he has very limited reserve. I'm going to ultrasound the chest and if there is sizable pleural effusion we'll proceed with a thoracentesis. I'm very much concerned of his very limited reserve as the patient is demonstrating episodic hypoxemia where his pulse ox is dropping in the mid 70s. A repeat echocardiogram with a bubble study may rule out possibility of any intracardiac shunt. Meanwhile, measures of CHF and atrial fibrillation per cardiology. The patient is on diuretics. The patient is on IV heparin. Monitor renal function. Bicarb was blistered and potassium level needs to be monitored. May benefit from a D50/insulin treatment if the patient continues to have elevated potassium level. Case will be discussed with cardiology. We'll continue to follow. Condition is critical.
--- NOTE | 2018-03-23 10:55 | US ---
EXAMINATION TYPE: US venous doppler duplex LE DATE OF EXAM: 03/23/2018 10:25 AM COMPARISON: NONE CLINICAL HISTORY: rule out DVT. Edema, SOB. Very difficult exam due to large amount of edema SIDE PERFORMED: Bilateral TECHNIQUE: The lower extremity deep venous system is examined utilizing real time linear array sonog rocael with graded compression, doppler sonography and color-flow sonography. VESSELS IMAGED: External Iliac Vein (EIV) Common Femoral Vein Deep Femoral Vein Greater Saphenous Vein * Femoral Vein Popliteal Vein Small Saphenous Vein * Proximal Calf Veins (* superficial vessels) There is normal flow, compressibility, vascular waveforms. Right Leg: Negative for DVT as visualized Left Leg: Negative for DVT as visualized Edema channels are noted within the legs. IMPRESSION: No evident deep venous thrombosis at or above the knee on the left or right. Exam is some what limited technically. Subcutaneous edema. Follow-up as indicated.
--- NOTE | 2018-03-23 10:59 | US ---
EXAMINATION TYPE: US chest DATE OF EXAM: 03/23/2018 COMPARISON: Chest x-ray 03/23/2018 CLINICAL HISTORY: right pleural effusion. Difficult and limited exam due to patient unable to sit for olvera in bed, having difficulty breathing with movement. TECHNIQUE: Targeted ultrasound of the posterior lower right hemithorax EXAM MEASUREMENTS: Right Pleural Effusion pocket size: 10.9 cm Right skin surface to fluid distance: 3.5 cm Right side marked for possible thoracentesis outside the dept. Pulmonologists are able to review the images in the patient?s EMR. IMPRESSIONS: Large right pleural effusion
[2018-03-23] MEDS ORDERED: INSULIN REGULAR 100 UNIT/ML VIAL IV ONE (11:30)
[2018-03-23] MEDS ORDERED: DEXTROSE 50%-WATER 50 ML SYRINGE IVP STA (11:31)
[2018-03-23] MEDS ORDERED: [UNRECOGNIZED DRUG - OTHER] IV ONE (11:31)
[2018-03-23] MEDS: ALPRAZolam 0.5 MG TAB PO PRN ×2 (11:36→20:44)
--- NOTE | 2018-03-23 11:46 | P.NPCON ---
History of Present Illness - Reason for Consult acute renal failure - History of Present Illness Reason for consultation: Acute kidney injury History of present illness: Patient is a 63-year-old male seen in consultation for acute kidney injury. Patient's creatinine in May 2014 was 0.97. This admission his creatinine was 1.3 and is up to 2.23 today. Patient presented to the hospital with worsening shortness of breath and edema going on for a few days prior to admission. He was also in atrial fibrillation with RVR and was on a Cardizem drip. Heart rate is now controlled. He is also noted to have systolic CHF with ejection fraction of less than 20% with moderate to severe mitral regurgitation. Patient was maintained on Lasix 40 mg IV twice daily and was increased to 80 mg IV twice daily. Patient is oliguric. No hematuria or dysuria. Denies chest pain. Still very edematous. Oral intake is fair. No vomiting or diarrhea. Denies use of NSAIDs. Denies any family history of renal disease. Vital signs are stable. General: The patient appeared well nourished and normally developed. HEENT: Head exam is unremarkable. Neck is without jugular venous distension. LUNGS: Lungs are clear to auscultation and percussion. Breath sounds decreased. HEART: Irregular rate and rhythm. ABDOMEN: Abdominal exam reveals normal bowel sounds. Non-tender and non- distended. No evidence of peritonitis. EXTREMITITES: 2+ edema. Past Medical History Past Medical History: Atrial Fibrillation, Cancer, Hypertension Additional Past Medical History / Comment(s): Congestion heart failure, prostate cancer diagnosed 3 years ago, known history of valvular heart disease with mitral valve regurgitation, skin cancer was resected from the face, chronic alcoholism, chronic smoking, chronic back pain, degenerative arthritis, chronic atrial fibrillation, hypertension History of Any Multi-Drug Resistant Organisms: None Reported Past Surgical History: Joint Replacement, Orthopedic Surgery Additional Past Surgical History / Comment(s): Total right hip arthroplasty, L knee reconstruction, R rotator cuff repair, pilonidial cystectomy, skin cancer removals from face, back injections. Past Anesthesia/Blood Transfusion Reactions: No Reported Reaction Additional Past Anesthesia/Blood Transfusion Reaction / Comment(s): Pt has received blood in past without reaction. Smoking Status: Former smoker Past Alcohol Use History: Heavy - Past Family History Father Family Medical History: Dementia Additional Family Medical History / Comment(s): Father at the age of 72 yrs. Mother Family Medical History: AFIB Additional Family Medical History / Comment(s): Mother is 93 yrs old. Medications and Allergies Home Medications Medication Instructions Recorded Confirmed Type Allopurinol [Zyloprim] 100 mg PO DAILY 03/22/18 03/22/18 History Ascorbic Acid [Vitamin C] 500 mg PO DAILY 03/22/18 03/22/18 History Atenolol [Tenormin] 50 mg PO DAILY 03/22/18 03/22/18 History Cyanocobalamin (Vitamin B-12) 1,000 mcg PO DAILY 03/22/18 03/22/18 History [Vitamin B-12] Magnesium Oxide [Mag-Ox] 250 mg PO DAILY 03/22/18 03/22/18 History Niacin 500 mg PO DAILY 03/22/18 03/22/18 History Potassium 99 mg PO DAILY 03/22/18 03/22/18 History Warfarin [Coumadin] 6 mg PO DAILY 03/22/18 03/22/18 History Allergies Allergy/AdvReac Type Severity Reaction Status Date / Time colchicine Allergy Unknown Verified 03/22/18 08:30 probenecid Allergy Unknown Verified 03/22/18 08:30 Physical Exam Vitals: Vital Signs Temp Pulse Pulse Resp BP BP Pulse Ox 03/23/18 10:45 89 29 H 109/98 94 L 03/23/18 09:45 71 25 H 114/94 93 L 03/23/18 08:45 19 90/73 95 03/23/18 08:15 69 28 H 87/74 94 L 03/23/18 07:45 98.2 F 70 25 H 97/79 97 03/23/18 07:00 76 30 H 97/71 98 03/23/18 06:00 63 24 108/72 100 03/23/18 05:00 68 25 H 107/76 94 L 03/23/18 04:00 64 18 91/64 100 03/23/18 03:00 65 24 100/84 98 03/23/18 02:26 97.6 F 80 23 100/84 94 L 03/23/18 00:00 97.4 F L 63 24 103/70 96 03/22/18 19:22 97.5 F L 54 L 20 107/67 98 03/22/18 15:35 96 20 102/66 100 03/22/18 15:33 99 20 03/22/18 12:00 97.0 F L 99 24 108/88 100 03/22/18 11:51 98 24 Intake and Output 03/22/18 03/23/18 03/23/18 22:59 06:59 14:59 Intake Total 256.334 300 499 Output Total 500 130 45 Balance -243.666 170 454 Intake: IV 300 90 .9 100 70 Heparin Sod,Pork in 0.45% 200 20 NaCl 25,000 unit In 0.45 % NaCl 1 500ml.bag @ 10.5 UNITS/KG/HR 20 mls/hr IV .Q24H [facility] Rx#:[id number] Intake, IV Titration 206.334 309 Amount Diltiazem 50 mg In Sodium 53.667 Chloride 0.9% 40 ml @ 10 MG/HR 10 mls/hr IV .Q5H [facility] Rx#:[id number] Heparin Sod,Pork in 0.45% 152.667 309 NaCl 25,000 unit In 0.45 % NaCl 1 500ml.bag @ 10.5 UNITS/KG/HR 20 mls/hr IV .Q24H [facility] Rx#:[id number] Oral 50 100 Output: Urine 500 130 45 Uretheral (Klein) 50 Other: Voiding Method Indwelling Catheter Indwelling Catheter # Voids 2 Results - Lab Results Most recent lab results Calcium 8.2 mg/dL (8.4-10.2) L 03/23/18 05:02 Phosphorus 7.2 mg/dL (2.5-4.5) H 03/23/18 05:02 Magnesium 2.1 mg/dL (1.6-2.3) 03/23/18 05:02 03/23/18 05:02 03/23/18 10:25 Assessment and Plan Plan: Assessment: 1. Acute kidney injury secondary to ATN secondary to cardiorenal syndrome. Creatinine up to 2.23 today. 2. Hyperkalemia secondary to acute kidney injury. 3. Hypervolemic hyponatremia. 4. Volume overload. 5. Systolic CHF with ejection fraction of less than 20% with moderate to severe mitral regurgitation. 6. Metabolic acidosis secondary to acute kidney injury. 7. Hyperphosphatemia secondary to acute kidney injury. Plan: Start Lasix drip at 10 mL an hour. Add midodrine 10 mg 3 times daily. 2 A of sodium bicarbonate IV push along with 10 units of IV insulin with an amp of D50 now. Repeat potassium level this evening. Low potassium diet. 1500 mL fluid restriction. Continue to monitor renal function and urine output. Check urinalysis. Check renal ultrasound.
[2018-03-23] MEDS: HEPARIN SOD,PORK IN 0.45% NACL 25,000 UNIT in 0.45% NACL 1 500ML.BAG IV SCH (12:19)
[2018-03-23] MEDS: FUROSEMIDE 250 MG in SODIUM CHLORIDE 0.9% 225 ML IVP SCH (12:20)
[2018-03-23 13:42] LABS: Appearance,Urine Cloudy (Clear); Bacteria,Urine Occasional /hpf; Bilirubin,Urine Negative (Negative); Blood,Urine Large (Negative); Color,Urine Yellow; Glucose,Urine (UA) Negative (Negative); Granular Casts,Urine 3 /lpf (0); Hyaline Casts,Urine 88 /lpf (0-2); Ketones,Urine Negative (Negative); Leukocyte Esterase,Urine Moderate (Negative); Mucus,Urine Rare /hpf; Nitrite,Urine Negative (Negative); PH, Urine 5.5 (5.0-8.0); Protein,Urine Trace (Negative); RBC,Urine 94 /hpf (0-5); Specific Gravity,Urine 1.009 (1.001-1.035); Squamous Epithelial Cell,Urine <1 /hpf (0-4); WBC,Urine 13 /hpf (0-5)
--- NOTE | 2018-03-23 13:50 | US ---
EXAMINATION TYPE: US kidneys/renal and bladder DATE OF EXAM: 03/23/2018 COMPARISON: NONE CLINICAL HISTORY: elevated creatinine and low urinary output. Difficult and limited exam due to patie nt body habitus EXAM MEASUREMENTS: Right Kidney: 9.8 x 4.1 x 4.7 cm Left Kidney: 11.0 x 5.8 x 4.4 cm Right Kidney: No hydronephrosis or masses seen Left Kidney: No hydronephrosis or masses seen Bladder: Not distended, patient has dyson Bilateral Jets seen: No, see above There is no evidence for hydronephrosis at this point in time. No nephrolithiasis is seen. No juan r s are identified. The urinary bladder is anechoic. Bilateral ureteral jets are seen. There is no ascites. Cortical medullary differentiation appears maintained. IMPRESSION: Exam is limited. Renal sizes as described
[2018-03-23] MEDS: MIDODRINE 5 MG TAB PO SCH ×2 (15:07→18:34)
[2018-03-23 15:20] LABS: Hemoglobin A1C 5.5 % (4.0-6.0)
[2018-03-23] MEDS: SENNOSIDES 8.6 MG TAB PO SCH (20:28)
[2018-03-23] MEDS: CYCLOBENZAPRINE 10 MG TAB PO SCH (21:52)
--- NOTE | 2018-03-23 23:56 | PN ---
PROGRESS NOTE CHIEF COMPLAINT: Re-evaluation. HISTORY OF PRESENT ILLNESS: This is a 63-year-old gentleman who was admitted to the hospital with atrial fibrillation, rapid ventricular rate, congestive cardiac failure with evidence of significantly dilated cardiomyopathy. The patient has significant anasarca with 4+ edema of the lower extremities, right effusion and significant abdominal distention with suggestion of possible ascites. The patient is feeling better today. He has had about 500 mL of urine output; however, the patient has been on Lasix and his renal function is worsening. The patient seems to be in ATN. Clinically he looks improved. The patient is on Lasix. He is also on IV heparin, Coumadin being on hold for possibility of right thoracentesis to help the patient alleviate his shortness of breath. The patient questioned again regarding alcohol intake and his sister tells me she does not think he is drinking anymore; however, the patient admits that he drinks at least a pint of vodka 2 to 3 times a week. REVIEW OF SYSTEMS: NEURO: Denies any headaches, dizziness. PSYCH: No anxiety. CARDIAC: No chest pain, angina, palpitations. RESPIRATORY: Shortness of breath, cough. GI: No nausea, vomiting, abdominal pain, diarrhea. : No symptoms of dysuria, hematuria. EXTREMITIES: Denies pain. Does have significant edema. CONSTITUTIONAL: No fever or chills. Does have chronic back pain. PHYSICAL EXAMINATION: A 63-year-old, at present appearing better than yesterday, though still significantly ill. VITAL SIGNS: Temperature 98.2, pulse 70, respirations 25, blood pressure 97/79, pulse ox 97% on 5 L. HEENT: Normocephalic. NECK: Supple. Two plus JVD. CHEST EXAMINATION: Dullness to percussion about nursing home up. CARDIAC: Normal S1, S2 with no gallops. Irregularly irregular rhythm. Systolic murmur 2/6, apex. ABDOMEN: Soft, protuberant. Bowel sounds active. Extremities reveal 4+ edema. NEUROLOGIC: Awake, alert, oriented x3 with well-coordinated movements. LABORATORY ASSESSMENT: White count 7.9, hemoglobin 9.5, platelets 153. INR is 2.3. Sodium 129, potassium 5.6, CO2 content 20, BUN 44, creatinine 2.23. ASSESSMENT: 1. Acute congestive cardiac failure secondary to systolic dysfunction. 2. Dilated cardiomyopathy, probably related to alcohol. 3. Acute renal failure secondary to acute tubular necrosis. 4. Hyponatremia. 5. Hyperkalemia. 6. Mild metabolic acidosis. 7. Anticoagulated status. 8. Atrial fibrillation. PLAN: Continue present medical regimen with diuresis. Nephrology consult is reviewed and recommendations are executed. The patient is also followed by Pulmonary and Cardiology. Patient's prognosis remains guarded. MMODL / IJN: [id number] /
[2018-03-24 04:50] LABS: Anisocytosis Slight; Basophils % (A) 0 %; Eosinophils % (A) 0 %; HCT 29.6 % (39.0-53.0); HGB 9.1 gm/dL (13.0-17.5); Hypochromasia Marked; Lymphocytes # (A) 0.5 k/uL (1.0-4.8); Lymphocytes % (A) 6 %; MCHC 30.7 g/dL (31.0-37.0); MCV 94.3 fL (80.0-100.0); Macrocytosis Slight; Mean Platelet Volume 8.6; Monocytes # (A) 0.6 k/uL (0-1.0); Monocytes % (A) 6 %; Neutrophils # (A) 7.3 k/uL (1.3-7.7); Neutrophils % (A) 86 %; Platelet Count 139 k/uL (150-450); Poikilocytosis Slight; RBC 3.14 m/uL (4.30-5.90); RDW 19.5 % (11.5-15.5); WBC 8.6 k/uL (3.8-10.6)
[2018-03-24 04:58] LABS: INR 1.7 (<1.2); Partial Thromboplastin Time 64.5 sec (22.0-30.0); Prothrombin Time 15.3 sec (9.0-12.0)
[2018-03-24 05:07] LABS: Calcium 7.8 mg/dL (8.4-10.2); Magnesium 2.1 mg/dL (1.6-2.3); Phosphorus 5.3 mg/dL (2.5-4.5)
--- NOTE | 2018-03-24 06:59 | P.PN ---
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 The patient's symptom of shortness of breath started about a week ago. But for the last 2 days it has been quite worse where he is even unable to cardiac conversation and 2 minor activities at home. Denies having any chest pain or chest discomfort. No prior history of congestive heart failure. No cough or wheezing. He did also state that he developed bilateral lower extremities edema. He gained weight but he does not exactly how much he gained. No dizziness or lightheadedness and no syncope. The patient is even having shortness of breath when he carried the conversation with me in the room. Beside that he does have diminished breathing sounds most prominent over the right lung. The patient does not have any history of coronary artery disease or congestive heart failure. He does have atrial fibrillation and known if it's paroxysmal or chronic. He is on oral anticoagulation at home. He is on Coumadin. Beside that he does have hypertension and he is overweight. The chest x-ray when he presented to the hospital showed bilateral pleural effusion and finding consistent with CHF. The EKG showed atrial fibrillation with a rapid ventricular response and diffuse nonspecific ST and T wave abnormalities. The potassium is slightly elevated. The BNP came in to be around 3900s. On follow-up with the patient today, March [id number], clinically he looks better. The chest x-ray from the morning showed large right pleural effusion and he is in process of getting ultrasound of the chest to assess the amount of pleural effusion and the possibility of pleurocentesis. He has been diuresing well and he continues to be on Lasix drip. The weight is 4 pounds down. The pressure has been marginal and I will decrease the dose of atenolol to 25 mg by mouth twice a day. He continues to be in atrial fibrillation was controlled heart rate. The echocardiogram revealed into her at all the function was EF of 20% likely to be nonischemic cardiomyopathy. The patient did admit to drinking vodka. Meanwhile he is on heparin drip which we will continue. Objective - Vital Signs Vital signs: Vital Signs Temp 97.8 F 03/24/18 04:00 Pulse 67 03/24/18 06:00 Resp 10 L 03/24/18 06:00 BP 86/68 03/24/18 06:00 Pulse Ox 98 03/24/18 06:00 Intake & Output 03/23/18 03/23/18 03/24/18 06:59 18:59 06:59 Intake Total 300 810.589 490 Output Total 179 771 3449 Balance 170 540.589 -2080 Weight 95.254 kg 111.3 kg Intake: IV 300 270 240 .9 100 250 240 Heparin Sod,Pork in 0.45% 200 20 NaCl 25,000 unit In 0.45 % NaCl 1 500ml.bag @ 10.5 UNITS/KG/HR 20 mls/hr IV .Q24H [facility] Rx#:[id number] Intake, IV Titration 440.589 Amount Heparin Sod,Pork in 0.45% 440.589 NaCl 25,000 unit In 0.45 % NaCl 1 500ml.bag @ 10.5 UNITS/KG/HR 20 mls/hr IV .Q24H [facility] Rx#:[id number] Oral 100 250 Output: Urine 684 711 9666 Uretheral (Klein) 50 Other: Voiding Method Indwelling Catheter Indwelling Catheter Indwelling Catheter # Voids 0 - Constitutional General appearance: Present: no acute distress - Respiratory Respiratory: right: diminished, left: CTA - Cardiovascular Rhythm: irregularly irregular Heart sounds: normal: S1, S2 - Labs CBC & Chem 7: 03/24/18 04:12 03/24/18 04:12 Labs: Abnormal Lab Results - Last 24 Hours (Table) 03/23/18 03/23/18 03/23/18 Range/Units 05:02 10:25 12:55 RBC (4.30-5.90) m/uL Hgb (13.0-17.5) gm/dL Hct (39.0-53.0) % MCHC (31.0-37.0) g/dL RDW (11.5-15.5) % Plt Count (150-450) k/uL Lymphocytes # (1.0-4.8) k/uL PT 20.5 H (9.0-12.0) sec INR 2.3 H (<1.2) APTT (22.0-30.0) sec Sodium (137-145) mmol/L Potassium 5.5 H (3.5-5.1) mmol/L Chloride (98-107) mmol/L BUN (9-20) mg/dL Creatinine (0.66-1.25) mg/dL Glucose (74-99) mg/dL Calcium (8.4-10.2) mg/dL Phosphorus (2.5-4.5) mg/dL Urine Protein Trace H (Negative) Urine Blood Large H (Negative) Ur Leukocyte Esterase Moderate H (Negative) Urine RBC 94 H (0-5) /hpf Urine WBC 13 H (0-5) /hpf Urine Bacteria Occasional H (None) /hpf Hyaline Casts 88 H (0-2) /lpf Urine Mucus Rare H (None) /hpf 03/23/18 03/23/18 03/24/18 Range/Units 15:10 21:17 04:12 RBC 3.14 L (4.30-5.90) m/uL Hgb 9.1 L (13.0-17.5) gm/dL Hct 29.6 L (39.0-53.0) % MCHC 30.7 L (31.0-37.0) g/dL RDW 19.5 H (11.5-15.5) % Plt Count 139 L (150-450) k/uL Lymphocytes # 0.5 L (1.0-4.8) k/uL PT (9.0-12.0) sec INR (<1.2) APTT 46.7 H 59.8 H (22.0-30.0) sec Sodium (137-145) mmol/L Potassium (3.5-5.1) mmol/L Chloride (98-107) mmol/L BUN (9-20) mg/dL Creatinine (0.66-1.25) mg/dL Glucose (74-99) mg/dL Calcium (8.4-10.2) mg/dL Phosphorus (2.5-4.5) mg/dL Urine Protein (Negative) Urine Blood (Negative) Ur Leukocyte Esterase (Negative) Urine RBC (0-5) /hpf Urine WBC (0-5) /hpf Urine Bacteria (None) /hpf Hyaline Casts (0-2) /lpf Urine Mucus (None) /hpf 03/24/18 03/24/18 Range/Units 04:12 04:12 RBC (4.30-5.90) m/uL Hgb (13.0-17.5) gm/dL Hct (39.0-53.0) % MCHC (31.0-37.0) g/dL RDW (11.5-15.5) % Plt Count (150-450) k/uL Lymphocytes # (1.0-4.8) k/uL PT 15.3 H (9.0-12.0) sec INR 1.7 H (<1.2) APTT 64.5 H (22.0-30.0) sec Sodium 130 L (137-145) mmol/L Potassium (3.5-5.1) mmol/L Chloride 94 L (98-107) mmol/L BUN 59 H (9-20) mg/dL Creatinine 2.33 H (0.66-1.25) mg/dL Glucose 107 H (74-99) mg/dL Calcium 7.8 L (8.4-10.2) mg/dL Phosphorus 5.3 H (2.5-4.5) mg/dL Urine Protein (Negative) Urine Blood (Negative) Ur Leukocyte Esterase (Negative) Urine RBC (0-5) /hpf Urine WBC (0-5) /hpf Urine Bacteria (None) /hpf Hyaline Casts (0-2) /lpf Urine Mucus (None) /hpf Assessment and Plan Assessment: Assessment #1 congestive heart failure exacerbation unknown if it's due to systolic or diastole dysfunction with evidence of right and left heart failure #2 atrial fibrillation was rapid ventricular response #3 severe cardiomyopathy likely to be nonischemic #4 moderate to severe mitral regurgitation #5 acute on chronic renal failure Plan #1 continue the current dose of Lasix. Nephrology was consulted to see the patient regarding acute on chronic renal failure which is likely related to hypotension #2 decrease the dose of atenolol to 25 mg by mouth twice a day in view of the low blood pressure. Continue midodrine #3 continue anticoagulation with heparin IV. The patient possibly needs pleurocentesis #4 the echocardiogram revealed severe cardiomyopathy. He needs to be on BERNARDA inhibitor as well as Aldactone once his creatinine improved and blood pressure improved as well #5 follow-up with the patient.
--- NOTE | 2018-03-24 07:21 | XR ---
EXAMINATION TYPE: XR chest 1V portable DATE OF EXAM: 03/24/2018 COMPARISON: 03/23/2018 HISTORY: Shortness of breath. Follow-up exam. Pleural effusion. TECHNIQUE: Single frontal view of the chest is obtained. FINDINGS: There is global cardiac enlargement as seen on the prior with a similar-appearing moderate right layering pleural effusion and right-sided airspace disease. Left lung remains overall clear. O sseous structures appear grossly intact. No sizable pneumothorax. IMPRESSION: Similar-appearing right moderate pleural effusion with associated right-sided airspace d isease, likely atelectasis.
[2018-03-24] MEDS: MIDODRINE 5 MG TAB PO SCH ×3 (08:46→18:25)
[2018-03-24] MEDS: MAGNESIUM OXIDE 400 MG TAB PO SCH (08:47)
[2018-03-24] MEDS: PANTOPRAZOLE 40 MG TABLET PO SCH (08:47)
[2018-03-24] MEDS: ALLOPURINOL 100 MG TAB PO SCH (08:47)
[2018-03-24] MEDS ORDERED: ATENOLOL 50 MG TAB PO SCH (09:00)
[2018-03-24] MEDS ORDERED: FAMOTIDINE 20 MG TAB PO SCH (09:00)
[2018-03-24] MEDS: ATENOLOL 25 MG TAB PO SCH ×2 (09:55→20:27)
[2018-03-24] MEDS: DOCUSATE 100 MG CAP PO SCH ×2 (09:59→20:27)
[2018-03-24] MEDS: HEPARIN SOD,PORK IN 0.45% NACL 25,000 UNIT in 0.45% NACL 1 500ML.BAG IV SCH (13:00)
--- NOTE | 2018-03-24 13:08 | P.PN ---
Subjective Patient is seen in follow-up for acute kidney injury. Patient's creatinine in May 2014 was 0.97. This admission was 1.3 and is up to 2.33 today. Patient presented with atrial fibrillation with RVR. His heart rate is now controlled. Patient has systolic CHF with ejection fraction of less than 20% with moderate to severe mitral regurgitation. He was started on Lasix drip yesterday. Urine output has improved significantly. He is making about 200 mL an hour. No vomiting or diarrhea. Edema is gradually improving. Vital signs are stable. General: The patient appeared well nourished and normally developed. HEENT: Head exam is unremarkable. Neck is without jugular venous distension. LUNGS: Lungs are clear to auscultation and percussion. Breath sounds decreased. HEART: Rate and Rhythm are regular. First and second heart sounds normal. No murmurs, rubs or gallops. ABDOMEN: Abdominal exam reveals normal bowel sounds. Non-tender and non- distended. No evidence of peritonitis. EXTREMITITES: 2+ edema. Objective - Vital Signs Vital signs: Vital Signs Temp 98.2 F 03/24/18 12:00 Pulse 90 03/24/18 12:00 Resp 16 03/24/18 12:00 BP 111/89 03/24/18 12:00 Pulse Ox 98 03/24/18 12:00 Intake & Output 03/23/18 03/24/18 03/24/18 18:59 06:59 18:59 Intake Total 810.589 490 526.744 Output Total 270 2570 1240 Balance 540.589 -2080 -713.256 Weight 95.254 kg 111.3 kg Intake: IV 270 240 120 .9 250 240 120 Heparin Sod,Pork in 0.45% 20 NaCl 25,000 unit In 0.45 % NaCl 1 500ml.bag @ 10.5 UNITS/KG/HR 20 mls/hr IV .Q24H [facility] Rx#:[id number] Intake, IV Titration 440.589 406.744 Amount Heparin Sod,Pork in 0.45% 440.589 406.744 NaCl 25,000 unit In 0.45 % NaCl 1 500ml.bag @ 10.5 UNITS/KG/HR 20 mls/hr IV .Q24H [facility] Rx#:[id number] Oral 100 250 Output: Urine 270 2570 1240 Other: Voiding Method Indwelling Catheter Indwelling Catheter Indwelling Catheter # Voids 0 - Labs CBC & Chem 7: 03/24/18 04:12 03/24/18 04:12 Labs: Abnormal Lab Results - Last 24 Hours (Table) 03/23/18 03/23/18 03/23/18 Range/Units 12:55 15:10 21:17 RBC (4.30-5.90) m/uL Hgb (13.0-17.5) gm/dL Hct (39.0-53.0) % MCHC (31.0-37.0) g/dL RDW (11.5-15.5) % Plt Count (150-450) k/uL Lymphocytes # (1.0-4.8) k/uL PT (9.0-12.0) sec INR (<1.2) APTT 46.7 H 59.8 H (22.0-30.0) sec Sodium (137-145) mmol/L Chloride (98-107) mmol/L BUN (9-20) mg/dL Creatinine (0.66-1.25) mg/dL Glucose (74-99) mg/dL Calcium (8.4-10.2) mg/dL Phosphorus (2.5-4.5) mg/dL Urine Protein Trace H (Negative) Urine Blood Large H (Negative) Ur Leukocyte Esterase Moderate H (Negative) Urine RBC 94 H (0-5) /hpf Urine WBC 13 H (0-5) /hpf Urine Bacteria Occasional H (None) /hpf Hyaline Casts 88 H (0-2) /lpf Urine Mucus Rare H (None) /hpf 03/24/18 03/24/18 03/24/18 Range/Units 04:12 04:12 04:12 RBC 3.14 L (4.30-5.90) m/uL Hgb 9.1 L (13.0-17.5) gm/dL Hct 29.6 L (39.0-53.0) % MCHC 30.7 L (31.0-37.0) g/dL RDW 19.5 H (11.5-15.5) % Plt Count 139 L (150-450) k/uL Lymphocytes # 0.5 L (1.0-4.8) k/uL PT 15.3 H (9.0-12.0) sec INR 1.7 H (<1.2) APTT 64.5 H (22.0-30.0) sec Sodium 130 L (137-145) mmol/L Chloride 94 L (98-107) mmol/L BUN 59 H (9-20) mg/dL Creatinine 2.33 H (0.66-1.25) mg/dL Glucose 107 H (74-99) mg/dL Calcium 7.8 L (8.4-10.2) mg/dL Phosphorus 5.3 H (2.5-4.5) mg/dL Urine Protein (Negative) Urine Blood (Negative) Ur Leukocyte Esterase (Negative) Urine RBC (0-5) /hpf Urine WBC (0-5) /hpf Urine Bacteria (None) /hpf Hyaline Casts (0-2) /lpf Urine Mucus (None) /hpf Assessment and Plan Plan: Assessment: 1. Acute kidney injury secondary to ATN secondary to cardiorenal syndrome. Creatinine up to 2.33 today. Trace proteinuria on UA. No evidence of hydronephrosis. 2. Hyperkalemia secondary to acute kidney injury. Resolved. 3. Hypervolemic hyponatremia. Better. 4. Volume overload. 5. Systolic CHF with ejection fraction of less than 20% with moderate to severe mitral regurgitation. 6. Metabolic acidosis secondary to acute kidney injury. Improved. 7. Hyperphosphatemia secondary to acute kidney injury. Better with improved urine output. Plan: Maintain Lasix drip at 10 mL an hour. Maintain midodrine 10 mg 3 times daily. 1500 mL fluid restriction. Low-salt diet. Continue to monitor renal function and urine output. Daily weights. Strict I's and O's.
--- NOTE | 2018-03-24 14:38 | P.PN ---
Subjective Progress Note Date: 03/24/18 This is a 63-year-old male patient was had a poor health condition due to his chronic alcoholism, who presented to the hospital few days back because of worsening shortness of breath, exertional dyspnea, orthopnea, progressive lower extremity edema and his symptoms were typical of congestion heart failure. Furthermore, the patient was confirmed to have heart failure and the echocardiogram showed severe cardiomyopathy with an ejection fraction of less than 20% and the patient was found to have moderate to severe mitral regurgitation and moderate degree of pulmonary hypertension. He had significant amount of tricuspid regurgitation in addition. He had global hypokinesis. His BNP level at time of admission was 3900. He is free of any chest pain. He was found to be in atrial fibrillation. This is a chronic problem. The patient was taking Coumadin on outpatient basis and his INR at time of admission was 1.6. Currently remains in atrial fibrillation and his rate is controlled with use of atenolol 50 mg by mouth twice a day. He is also on IV heparin and the Coumadin has been discontinued. He has significant lower extremity edema. He has developed an acute kidney injury related to ATN/ cardiorenal factors as the patient is being diuresis with Lasix 80 mg IV push every 12 hours and despite that amount of urine output has been limited. This patient a chance to the intensive care unit yesterday. Apparently he was having episodes of bradycardia. I limited the rhythm strips and the patient was having atrial fibrillation with low rate essentially the mid 40s. No evidence of any AV block's or third-degree AV block. During this time the patient was becoming symptomatic when he would also become briefly unresponsive and diaphoretic, a presyncope-like of picture. The patient would also get episodically hypoxemic. Limited amount of activity would make him drop his pulse ox of the mid 70s. He is currently placed on oxygen at 5 L to maintain a saturation above 90%. Nevertheless, as mentioned, even while trying to get up and sitting up in a sitting position the patient would desaturate easily and it' ll take him probably a minute or 2 to recover from his oxygen desaturation. As such she has very limited reserve. He continues to have edematous lower extremity edema. Denies having any chest pain. He has history of smoking has history of COPD. The chest x-ray was obtained yesterday showed evidence of a moderate-sized right-sided pleural effusion. On 03/24/2018, there has been considerable improvement the patient's condition compared to yesterday. Overall the patient has responded diuretics and his produced significant amount of urine output since yesterday. His home I status improved and is less short of breath. The patient has diuresed more than 2.5 L and this is improved significantly his pulmonary status. He continues to have lower extremity edema. On today's chest x-ray there was a right-sided pleural effusion. There is also also some markings on the yesterday. Nevertheless, inserting a small needle into the right hemithorax did not yield any significant return and based on that I aborted the procedure. I did not proceed with a thoracentesis. Very much likely the patient is improved significantly in terms of his pleural effusion in the volume status since yesterday. He remains in atrial fibrillation. He remains on IV heparin. INR today is at 1.6. PTT is therapeutic. No chest pain. No altered mentation. He was having some encephalopathy yesterday which seems to be much recovered on today's evaluation. No nausea. No vomiting. No chest pain. No other significant events overnight. Meanwhile, the patient's renal function remains stable with a creatinine of 2.3. The patient is on Lasix drip at 10 mg an hour. He is also on atenolol 25 mg by mouth twice a day. Objective - Vital Signs Vital signs: Vital Signs Temp 98.2 F 03/24/18 12:00 Pulse 85 03/24/18 13:00 Resp 25 H 03/24/18 13:00 BP 111/89 03/24/18 12:00 Pulse Ox 93 L 03/24/18 13:00 Intake & Output 03/23/18 03/24/18 03/24/18 18:59 06:59 18:59 Intake Total 810.589 490 546.744 Output Total 270 2570 1505 Balance 540.589 -2080 -958.256 Weight 95.254 kg 111.3 kg Intake: IV 270 240 140 .9 250 240 140 Heparin Sod,Pork in 0.45% 20 NaCl 25,000 unit In 0.45 % NaCl 1 500ml.bag @ 10.5 UNITS/KG/HR 20 mls/hr IV .Q24H [facility] Rx#:[id number] Intake, IV Titration 440.589 406.744 Amount Heparin Sod,Pork in 0.45% 440.589 406.744 NaCl 25,000 unit In 0.45 % NaCl 1 500ml.bag @ 10.5 UNITS/KG/HR 20 mls/hr IV .Q24H [facility] Rx#:[id number] Oral 100 250 Output: Urine 270 2570 1505 Other: Voiding Method Indwelling Catheter Indwelling Catheter Indwelling Catheter # Voids 0 0 - Exam Gen. appearance the patient is a sitting up on a chair. Much improved compared to yesterday. Less short of breath. Able to speak in full sentences. No use of accessory muscles of breathing. Head exam was generally normal. There was no scleral icterus or corneal arcus. Mucous membranes were moist. Neck was supple and with jugular venous distension, thyromegaly, or carotid bruits. Carotids were easily palpable bilaterally. There was no adenopathy. Lungs sounds are diminished vision the right lung base along with some minimal bibasilar crackles and dullness in the right lung basilar area Heart sounds are irregular, positive S1-S2 and there is an S3 gallop. Overall heart sounds are distant. No significant right ventricular heave or thrill. There is a systolic ejection murmur grade 3/6 heard along the left sternal border. Abdominal exam revealed normal bowel sounds. The abdomen was soft, non-tender, and without masses, organomegaly, or appreciable enlargement of the abdominal aorta. Extremities revealed +1 to +2 pitting edema. There is no cyanosis or clubbing at this point. No open wounds or ulcerations. Neurologically the patient was awake and alert at a time of my evaluation he had no focal neurological deficit. Nevertheless I was told that the patient was on and off having episodes of confusion. Examination of the skin revealed no evidence of significant rashes, suspicious appearing nevi or other concerning lesions. - Labs CBC & Chem 7: 03/24/18 04:12 03/24/18 04:12 Labs: Abnormal Lab Results - Last 24 Hours (Table) 03/23/18 03/23/18 03/24/18 Range/Units 15:10 21:17 04:12 RBC 3.14 L (4.30-5.90) m/uL Hgb 9.1 L (13.0-17.5) gm/dL Hct 29.6 L (39.0-53.0) % MCHC 30.7 L (31.0-37.0) g/dL RDW 19.5 H (11.5-15.5) % Plt Count 139 L (150-450) k/uL Lymphocytes # 0.5 L (1.0-4.8) k/uL PT (9.0-12.0) sec INR (<1.2) APTT 46.7 H 59.8 H (22.0-30.0) sec Sodium (137-145) mmol/L Chloride (98-107) mmol/L BUN (9-20) mg/dL Creatinine (0.66-1.25) mg/dL Glucose (74-99) mg/dL Calcium (8.4-10.2) mg/dL Phosphorus (2.5-4.5) mg/dL 03/24/18 03/24/18 Range/Units 04:12 04:12 RBC (4.30-5.90) m/uL Hgb (13.0-17.5) gm/dL Hct (39.0-53.0) % MCHC (31.0-37.0) g/dL RDW (11.5-15.5) % Plt Count (150-450) k/uL Lymphocytes # (1.0-4.8) k/uL PT 15.3 H (9.0-12.0) sec INR 1.7 H (<1.2) APTT 64.5 H (22.0-30.0) sec Sodium 130 L (137-145) mmol/L Chloride 94 L (98-107) mmol/L BUN 59 H (9-20) mg/dL Creatinine 2.33 H (0.66-1.25) mg/dL Glucose 107 H (74-99) mg/dL Calcium 7.8 L (8.4-10.2) mg/dL Phosphorus 5.3 H (2.5-4.5) mg/dL Assessment and Plan Plan: Assessment 1 acute on chronic systolic heart failure with global hypokinesis and ejection fraction of 20%, consider ischemic versus nonischemic cardiomyopathy as the patient may have an underlying coronary artery disease. He has has no history of alcoholism. 2 moderate severe mitral regurgitation 3 moderate to severe pulmonary hypertension secondary to left-sided heart failure and mitral valve disease 4 moderate-sized right-sided pleural effusion 5 chronic atrial fibrillation 6 acute on chronic hypoxic arrest 30 failure. The respiratory failure secondary to above-mentioned factors in addition the right-sided pleural effusion is probably contributing to the patient's hypoxemia. Another consideration is shunting, possibly intracardiac shunt that could potentially contributing to hypoxemia the patient's hypoxemia is out of proportion to his pulmonary findings and the extent of pleural fluid the cannulation in the right hemithorax. 7 alcoholism 8 acute kidney injury, secondary to ATN and cardiio renal factors 9 chronic normocytic anemia 10 chronic lower extremity edema 11 hyponatremia secondary to cardiomyopathy/CHF 12 metabolic acidosis with a small anion gap, recovered and serum bicarbonate is normalized. 13 hyperkalemia 14 episodes of bradycardia with a A. fib rhythm, symptomatic 15 prostate cancer Plan The thoracentesis was aborted because of the above-mentioned reasons. Repeat chest x-ray in the morning. Continue diuretics. Currently much improved. We' ll continue to follow and we'll keep the patient in intensive care unit.
--- NOTE | 2018-03-24 14:51 | CDI ---
Last Revision, April 2017 Documentation Clarification Form Date: 03/24/2018 2:25:00 PM From: Beti Ramos RN, CCDS Admit Date: 03/22/2018 9:48:00 AM Patient Name: Александр Hodge Visit Number: [id number] ATTENTION: The Clinical Documentation Specialists (CDI) and [facility] Coding Staff appreciate your assistance in clarifying documentation. Please respond to the clarification below the line at the bottom and electronically sign. The CDI & [facility] Coding staff will review the response and follow-up if needed. Please note: Queries are made part of the Legal Health Record. If you have any questions, please contact the author of this message via ITS. Abdullahi Alvarado MD CKD is documented in the Assessment of the H&P and requires further specificity. History/Risk Factors: Chronic atrial fib, alcohol dependency, gout, CKD Clinical Indicators: Current BUN: 30/44/59 CR: 1.78/2.23/2.33 GFR: 40/30/29 Patients Baseline: BUN/CR/GFR: 16/.97/>60 Treatment: Patients medications include: IVF: 0.9% NS Lasix Gtt In order to capture the severity of condition, please clarify if the condition signifies: CKD Stage 1 (GFR > 90) CKD Stage 2 (GFR 60-89) CKD Stage 3 (GFR 30-59) CKD Stage 4 (GFR 15-29) CKD Stage 5 (GFR <15) ESRD Other, please specify Unable to determine Please continue to document in your progress notes and discharge summary in order to capture severity of illness and risk of mortality. Include clinical findings that support your diagnosis. MTDD
--- NOTE | 2018-03-24 14:53 | CDI ---
Last Revision, April 2017 Documentation Clarification Form Date: 03/24/2018 2:25:00 PM From: Beti Ramos RN, CCDS Admit Date: 03/22/2018 9:48:00 AM Patient Name: Александр Hodge Visit Number: [id number] ATTENTION: The Clinical Documentation Specialists (CDI) and [facility] Coding Staff appreciate your assistance in clarifying documentation. Please respond to the clarification below the line at the bottom and electronically sign. The CDI & [facility] Coding staff will review the response and follow-up if needed. Please note: Queries are made part of the Legal Health Record. If you have any questions, please contact the author of this message via ITS. Nevin Ambrocio MD A diagnosis of anemia lacks specificity to accurately reflect your patients severity of condition and clarification is needed. History/Risk Factors: Acute systolic chf, dilated cardiomyopathy, Atrial Fib, CKD, ROCK w ATN Clinical indicators: Hemoglobin: 9.9/9.5/9.1 Hematocrit:32.8/32.2/29.6 Treatment: 0.9% NS @ 20 cc/hr In order to capture the severity of condition, please clarify the type of anemia and etiology if known: Chronic blood loss anemia Iron deficiency anemia Drug induced anemia Nutritional anemia Anemia of chronic kidney disease Anemia of chronic disease (please specify) Unable to determine Other, please specify Please continue to document in your progress notes and discharge summary in order to capture severity of illness and risk of mortality. Include clinical findings that support your diagnosis. MTDD
[2018-03-24] MEDS: FUROSEMIDE 250 MG in SODIUM CHLORIDE 0.9% 225 ML IVP SCH (15:09)
[2018-03-24] MEDS: SENNOSIDES 8.6 MG TAB PO SCH (20:27)
[2018-03-24] MEDS: CYCLOBENZAPRINE 10 MG TAB PO SCH (20:35)
[2018-03-24] MEDS: traMADol 50 MG TAB PO PRN (20:40)
--- NOTE | 2018-03-24 22:35 | P.PN ---
Subjective Progress Note Date: 03/24/18 Principal diagnosis: Acute congestive cardiac failure secondary to systolic dysfunction and respiratory failure This 63-year-old gentleman was admitted to the hospital with severe shortness of breath and atrial fibrillation rapid ventricular rate. Patient is known to have history of chronic atrial flutter. He says his condition worsened 6 days prior to admission when he became short of breath and gained significant amount of weight patient is about 25 pounds heavier than his usual weight. Patient has significant dyspnea and shortness of breath which is improved significantly he is able to communicate without having to catch up breath. He had developed ATN with acute kidney damage and renal failure patient's kidneys opened up is making good amount of urine and he is edema seems to be improving. He feels markedly improved. Denies any chest pain shortness of breath. REVIEW OF SYSTEMS: Neuro: Denies any headaches dizziness. Psych: Some anxiety Cardiac: Denies chest pain and angina palpitations. Respiratory: Improved shortness of breath minimal cough. GI: Denies nausea vomiting or abdominal pain. No diarrhea or constipation, no bowel movement yet. : Has a Klein catheter Extremities: Significant edema but improving Skin: Intact. Constitutional: No fever, chills. Objective - Vital Signs Vital signs: Vital Signs Temp 98.5 F 03/24/18 19:05 Pulse 72 03/24/18 22:05 Resp 14 03/24/18 22:05 BP 122/71 03/24/18 22:05 Pulse Ox 93 L 03/24/18 22:05 Intake & Output 03/24/18 03/24/18 03/25/18 06:59 18:59 06:59 Intake Total 490 896.744 580 Output Total 2570 3135 1410 Balance -0 -2238.256 -830 Weight 111.3 kg Intake: IV 240 240 80 .9 240 240 80 Intake, IV Titration 656.744 Amount Furosemide 250 mg In 250 Sodium Chloride 0.9% 225 ml @ 10 MG/HR 10 mls/hr IVP .Q24H [facility] Rx#: [id number] Heparin Sod,Pork in 0.45% 406.744 NaCl 25,000 unit In 0.45 % NaCl 1 500ml.bag @ 10.5 UNITS/KG/HR 20 mls/hr IV .Q24H [facility] Rx#:[id number] Oral 250 500 Output: Urine 2570 3135 1410 Other: Voiding Method Indwelling Catheter Indwelling Catheter Indwelling Catheter # Voids 0 0 PHYSICAL EXAMINATION: Cooperative, at present in no acute distress. HEENT: Neck supple 1+ JVD Chest: Improved aeration bilateral except for decreased airflow right base with dullness right base percussion. Cardiac: Normal S1 and S2 irregularly irregular no gallops systolic murmur 2/6 left sternal border and apex. Abdomen: Soft bowel sounds present. Extremities: 3+ edema no tenderness Neurologically: Awake, alert, oriented with well-coordinated movements. - Labs CBC & Chem 7: 03/24/18 04:12 03/24/18 04:12 Labs: Abnormal Lab Results - Last 24 Hours (Table) 03/24/18 03/24/18 03/24/18 Range/Units 04:12 04:12 04:12 RBC 3.14 L (4.30-5.90) m/uL Hgb 9.1 L (13.0-17.5) gm/dL Hct 29.6 L (39.0-53.0) % MCHC 30.7 L (31.0-37.0) g/dL RDW 19.5 H (11.5-15.5) % Plt Count 139 L (150-450) k/uL Lymphocytes # 0.5 L (1.0-4.8) k/uL PT 15.3 H (9.0-12.0) sec INR 1.7 H (<1.2) APTT 64.5 H (22.0-30.0) sec Sodium 130 L (137-145) mmol/L Chloride 94 L (98-107) mmol/L BUN 59 H (9-20) mg/dL Creatinine 2.33 H (0.66-1.25) mg/dL Glucose 107 H (74-99) mg/dL Calcium 7.8 L (8.4-10.2) mg/dL Phosphorus 5.3 H (2.5-4.5) mg/dL 03/24/18 Range/Units 18:04 RBC (4.30-5.90) m/uL Hgb (13.0-17.5) gm/dL Hct (39.0-53.0) % MCHC (31.0-37.0) g/dL RDW (11.5-15.5) % Plt Count (150-450) k/uL Lymphocytes # (1.0-4.8) k/uL PT (9.0-12.0) sec INR (<1.2) APTT 51.7 H (22.0-30.0) sec Sodium (137-145) mmol/L Chloride (98-107) mmol/L BUN (9-20) mg/dL Creatinine (0.66-1.25) mg/dL Glucose (74-99) mg/dL Calcium (8.4-10.2) mg/dL Phosphorus (2.5-4.5) mg/dL Assessment and Plan Assessment: ASSESSMENT: 1. Acute respiratory failure. 2. Acute congestive cardiac failure secondary to systolic dysfunction. 3. Dilated cardiomyopathy probably related to alcohol. 4. Chronic atrial fibrillation. 5. Acute on chronic renal failure. 6. ATN resolved. 7. Hyperkalemia resolved. 8. Metabolic acidosis secondary to decreased tissue perfusion with low output cardiac status and renal failure, improved 9. Right pleural effusion 10. Anticoagulated status 11 chronic back pain. PLAN: Continue present medical regimen. Patient is diuresing very well monitor electrolytes. Repeat chest x-ray continue heparin patient's condition discussed with the patient again stressed to him regarding no further alcohol. He is not exhibiting any symptoms of withdrawal at present.
[2018-03-24] MEDS: SODIUM CHLORIDE 0.9% 1,000 ML IV SCH (23:22)
[2018-03-25 05:53] LABS: Anisocytosis Slight; Basophils % (A) 0 %; Eosinophils % (A) 1 %; HCT 31.6 % (39.0-53.0); HGB 9.6 gm/dL (13.0-17.5); Hypochromasia Marked; Lymphocytes # (A) 0.6 k/uL (1.0-4.8); Lymphocytes % (A) 13 %; MCH 28.6 pg (25.0-35.0); MCHC 30.5 g/dL (31.0-37.0); MCV 93.7 fL (80.0-100.0); Macrocytosis Slight; Monocytes # (A) 0.4 k/uL (0-1.0); Monocytes % (A) 9 %; Neutrophils # (A) 3.6 k/uL (1.3-7.7); Neutrophils % (A) 75 %; Platelet Count 122 k/uL (150-450); Poikilocytosis Slight; RBC 3.38 m/uL (4.30-5.90); RDW 19.2 % (11.5-15.5); WBC 4.8 k/uL (3.8-10.6)
[2018-03-25 06:14] LABS: Phosphorus 3.5 mg/dL (2.5-4.5)
[2018-03-25 06:30] LABS: Magnesium 1.9 mg/dL (1.6-2.3)
[2018-03-25 06:36] LABS: Potassium 2.7 mmol/L (3.5-5.1)
[2018-03-25] MEDS: POTASSIUM CHLORIDE ER 20 MEQ TAB.ER PO SCH ×5 (07:20→12:13)
--- NOTE | 2018-03-25 07:23 | XR ---
EXAMINATION TYPE: XR chest 1V portable DATE OF EXAM: 03/25/2018 HISTORY: Shortness of breath. COMPARISON: 03/24/2018 TECHNIQUE: Single view of the chest is submitted. FINDINGS: Demonstrated are scattered senescent parenchymal change. Right basilar infiltrate with effusion and/or atelectasis persists. There is improving aeration at th e right lung base however. The heart is stable. Hilar and mediastinal structures are within normal limits. Degenerative changes are seen of the dorsal spine. IMPRESSION: 1. Right basilar infiltrate with effusion and/or atelectasis persists. There is improving aeration a t the right lung base however.
--- NOTE | 2018-03-25 07:45 | P.PN ---
Subjective Progress Note Date: 03/25/18 Principal diagnosis: Congestive heart failure exacerbation secondary to systolic dysfunction This is a pleasant 63-year-old gentleman who does not believe that he does follow with any border measurer on a regular basis presented to the hospital complaining of progressive dyspnea. The patient's symptom of shortness of breath started about a week ago. But for the last 2 days it has been quite worse where he is even unable to cardiac conversation and 2 minor activities at home. Denies having any chest pain or chest discomfort. No prior history of congestive heart failure. No cough or wheezing. He did also state that he developed bilateral lower extremities edema. He gained weight but he does not exactly how much he gained. No dizziness or lightheadedness and no syncope. The patient is even having shortness of breath when he carried the conversation with me in the room. Beside that he does have diminished breathing sounds most prominent over the right lung. The patient does not have any history of coronary artery disease or congestive heart failure. He does have atrial fibrillation and known if it's paroxysmal or chronic. He is on oral anticoagulation at home. He is on Coumadin. Beside that he does have hypertension and he is overweight. The chest x-ray when he presented to the hospital showed bilateral pleural effusion and finding consistent with CHF. The EKG showed atrial fibrillation with a rapid ventricular response and diffuse nonspecific ST and T wave abnormalities. The potassium is slightly elevated. The BNP came in to be around 3900s. On follow-up with the patient today, March 252017, clinically he is feeling better. The shortness of breath has improved. He continues to have bilateral lower extremities pitting edema. He has been on Lasix as read and he has been diuresing well and the creatinine has been trending down. The patient lost about 5 kg since he was admitted to the hospital. I did decrease the dose of atenolol yesterday and the blood pressure has been better. He was hypotensive the day before. The atenolol has been held for any systolic blood pressure below 90 mmHg. He continues to be on heparin IV for anticoagulation and I will start the patient on Coumadin today. An attempt to do pleurocentesis on him yesterday was done on it was unsuccessful and they were unable to get any fluid from the chest. Because of that I would start the patient on oral anticoagulation was Coumadin since there is no anticipation for any pleurocentesis anymore. He is not interested in taking any of the new anticoagulation agents because of cost issues. The echocardiogram revealed severe cardiomyopathy with EF of 20% likely to be nonischemic and related to alcohol. Objective - Vital Signs Vital signs: Vital Signs Temp 98.2 F 03/25/18 04:00 Pulse 69 03/25/18 07:00 Resp 13 03/25/18 07:00 BP 98/74 03/25/18 07:00 Pulse Ox 97 03/25/18 07:00 Intake & Output 03/24/18 03/25/18 03/25/18 18:59 06:59 18:59 Intake Total 570.580 4570.516 20 Output Total 3135 5060 550 Balance -2238.256 -3908.484 -530 Weight 106.3 kg Intake: IV 240 240 20 .9 240 240 20 Intake, IV Titration 656.744 411.516 Amount Furosemide 250 mg In 250 Sodium Chloride 0.9% 225 ml @ 10 MG/HR 10 mls/hr IVP .Q24H [facility] Rx#: [id number] Heparin Sod,Pork in 0.45% 406.744 411.516 NaCl 25,000 unit In 0.45 % NaCl 1 500ml.bag @ 10.5 UNITS/KG/HR 20 mls/hr IV .Q24H [facility] Rx#:[id number] Oral 500 Output: Urine 3135 5060 550 Other: Voiding Method Indwelling Catheter Indwelling Catheter # Voids 0 - Constitutional General appearance: Present: no acute distress - Respiratory Respiratory: bilateral: CTA - Cardiovascular Rhythm: irregularly irregular Heart sounds: normal: S1, S2 - Labs CBC & Chem 7: 03/25/18 05:15 03/25/18 05:15 Labs: Abnormal Lab Results - Last 24 Hours (Table) 03/24/18 03/25/18 03/25/18 Range/Units 18:04 05:15 05:15 RBC 3.38 L (4.30-5.90) m/uL Hgb 9.6 L (13.0-17.5) gm/dL Hct 31.6 L (39.0-53.0) % MCHC 30.5 L (31.0-37.0) g/dL RDW 19.2 H (11.5-15.5) % Plt Count 122 L (150-450) k/uL Lymphocytes # 0.6 L (1.0-4.8) k/uL APTT 51.7 H (22.0-30.0) sec Potassium 2.7 L* (3.5-5.1) mmol/L Chloride 97 L (98-107) mmol/L BUN 55 H (9-20) mg/dL Creatinine 1.66 H (0.66-1.25) mg/dL Calcium 8.0 L (8.4-10.2) mg/dL 03/25/18 Range/Units 05:15 RBC (4.30-5.90) m/uL Hgb (13.0-17.5) gm/dL Hct (39.0-53.0) % MCHC (31.0-37.0) g/dL RDW (11.5-15.5) % Plt Count (150-450) k/uL Lymphocytes # (1.0-4.8) k/uL APTT 82.5 H (22.0-30.0) sec Potassium (3.5-5.1) mmol/L Chloride (98-107) mmol/L BUN (9-20) mg/dL Creatinine (0.66-1.25) mg/dL Calcium (8.4-10.2) mg/dL Assessment and Plan Assessment: Assessment #1 congestive heart failure exacerbation unknown if it's due to systolic or diastole dysfunction with evidence of right and left heart failure #2 atrial fibrillation was rapid ventricular response #3 severe cardiomyopathy likely to be nonischemic #4 moderate to severe mitral regurgitation #5 acute on chronic renal failure Plan #1 continue the current medical regimen #2 continue Lasix drip. The creatinine has been improving. Nephrology is on the case #3 continue the current dose of atenolol and hold atenolol for any systolic pressure below 90 mmHg #4 start the patient on oral anticoagulation was, and in. Continue heparin for now #5 consider starting the patient on BERNARDA inhibitor and aldosterone antagonist down the line once the blood pressure improved #6 continue monitor the kidney function and electrolytes
[2018-03-25] MEDS: MIDODRINE 5 MG TAB PO SCH ×3 (08:22→18:33)
[2018-03-25] MEDS: MAGNESIUM OXIDE 400 MG TAB PO SCH (08:24)
[2018-03-25] MEDS: PANTOPRAZOLE 40 MG TABLET PO SCH (08:24)
[2018-03-25] MEDS: DOCUSATE 100 MG CAP PO SCH ×2 (08:25→20:20)
[2018-03-25] MEDS: ALLOPURINOL 100 MG TAB PO SCH (08:25)
[2018-03-25] MEDS: traMADol 50 MG TAB PO PRN ×2 (11:16→20:26)
--- NOTE | 2018-03-25 11:17 | CT ---
EXAMINATION TYPE: CT chest wo con DATE OF EXAM: 03/25/2018 COMPARISON: None HISTORY: JT, Pleural effusion CT DLP: 497.6 mGycm, Automated exposure control for dose reduction was used. CONTRAST: Performed injected with 0 mL of Isovue 300. TECHNIQUE: Axial images were obtained at 5 mm thick sections. Reconstructed images are reviewed on [employer] computer in the coronal plane. FINDINGS: Portion of the thyroid visualized is normal. There is a cyst small right pleural effusion. Some compressive atelectasis is likely present at the l janny bases within right middle and right lower lobe. Some underlying pneumonia is not excluded. Heart size is mildly prominent. Some streak atelectasis may be in the posterior medial left lung base. Coronary artery calcification is noted. No enlarged mediastinal or hilar adenopathy is evident. The ascending aorta diameter at the level o f the main pulmonary artery is 4.3 cm. The main pulmonary artery diameter at the bifurcation is 3.[address] sections are obtained through the upper abdomen. Abdomen is essentially unremarkable. Incr eased subcutaneous markings are present which appear greater in thicker bowel within the right flank and lateral chest and abdomen. IMPRESSIONS: 1. Small right pleural effusion. 2. Compressive atelectasis or early pneumonia right middle and right lower lobes in the infrahilar re gion. 3. Cardiomegaly. 4. Ascending thoracic aortic aneurysm of 4.3 cm. 4. Subcutaneous edema may be greater along the right lateral chest and abdomen.
--- NOTE | 2018-03-25 12:16 | P.PN ---
Subjective Patient is seen in follow-up for acute kidney injury. Patient's creatinine in May 2014 was 0.97. This admission cr was 1.3 and peaked at 2.33 03/24 - 1.66 today. Patient presented with atrial fibrillation with RVR. His heart rate is now controlled. Patient has systolic CHF with ejection fraction of less than 20% with moderate to severe mitral regurgitation. He is maintained on Lasix drip. Urine output over 8 L in the last 24 hours. No vomiting or diarrhea. Edema is gradually improving. Vital signs are stable. General: The patient appeared well nourished and normally developed. HEENT: Head exam is unremarkable. Neck is without jugular venous distension. LUNGS: Lungs are clear to auscultation and percussion. Breath sounds decreased. HEART: Rate and Rhythm are regular. First and second heart sounds normal. No murmurs, rubs or gallops. ABDOMEN: Abdominal exam reveals normal bowel sounds. Non-tender and non- distended. No evidence of peritonitis. EXTREMITITES: 2+ edema. Objective - Vital Signs Vital signs: Vital Signs Temp 98.2 F 03/25/18 04:00 Pulse 76 03/25/18 11:00 Resp 20 03/25/18 11:00 BP 94/66 03/25/18 11:00 Pulse Ox 98 03/25/18 11:00 Intake & Output 03/24/18 03/25/18 03/25/18 18:59 06:59 18:59 Intake Total 849.925 6487.516 390 Output Total 3135 5060 1550 Balance -2238.256 -3908.484 -1160 Weight 106.3 kg Intake: IV 240 240 40 .9 240 240 40 Intake, IV Titration 656.744 411.516 Amount Furosemide 250 mg In 250 Sodium Chloride 0.9% 225 ml @ 10 MG/HR 10 mls/hr IVP .Q24H [facility] Rx#: [id number] Heparin Sod,Pork in 0.45% 406.744 411.516 NaCl 25,000 unit In 0.45 % NaCl 1 500ml.bag @ 10.5 UNITS/KG/HR 20 mls/hr IV .Q24H [facility] Rx#:[id number] Oral 500 350 Output: Urine 3135 5060 1550 Other: Voiding Method Indwelling Catheter Indwelling Catheter Indwelling Catheter # Voids 0 - Labs CBC & Chem 7: 03/25/18 05:15 03/25/18 05:15 Labs: Abnormal Lab Results - Last 24 Hours (Table) 03/24/18 03/25/18 03/25/18 Range/Units 18:04 05:15 05:15 RBC 3.38 L (4.30-5.90) m/uL Hgb 9.6 L (13.0-17.5) gm/dL Hct 31.6 L (39.0-53.0) % MCHC 30.5 L (31.0-37.0) g/dL RDW 19.2 H (11.5-15.5) % Plt Count 122 L (150-450) k/uL Lymphocytes # 0.6 L (1.0-4.8) k/uL APTT 51.7 H (22.0-30.0) sec Potassium 2.7 L* (3.5-5.1) mmol/L Chloride 97 L (98-107) mmol/L BUN 55 H (9-20) mg/dL Creatinine 1.66 H (0.66-1.25) mg/dL Calcium 8.0 L (8.4-10.2) mg/dL 03/25/18 Range/Units 05:15 RBC (4.30-5.90) m/uL Hgb (13.0-17.5) gm/dL Hct (39.0-53.0) % MCHC (31.0-37.0) g/dL RDW (11.5-15.5) % Plt Count (150-450) k/uL Lymphocytes # (1.0-4.8) k/uL APTT 82.5 H (22.0-30.0) sec Potassium (3.5-5.1) mmol/L Chloride (98-107) mmol/L BUN (9-20) mg/dL Creatinine (0.66-1.25) mg/dL Calcium (8.4-10.2) mg/dL Assessment and Plan Plan: Assessment: 1. Acute kidney injury secondary to ATN secondary to cardiorenal syndrome. Creatinine peaked at 2.33 this admission and is down to 1.66. Trace proteinuria on UA. No evidence of hydronephrosis. 2. Hyperkalemia secondary to acute kidney injury. Resolved. Now hypokalemic from diuresis. 3. Hypervolemic hyponatremia. Better. 4. Volume overload. Improving. 5. Systolic CHF with ejection fraction of less than 20% with moderate to severe mitral regurgitation. 6. Metabolic acidosis secondary to acute kidney injury. Improved. 7. Hyperphosphatemia secondary to acute kidney injury. Better with improved urine output. Plan: Discontinue Lasix drip. Start IV Lasix 40 mg 3 times daily. Maintain midodrine 10 mg 3 times daily. 1500 mL fluid restriction. Low-salt diet. Continue to monitor renal function and urine output. Daily weights. Strict I's and O's. Replace potassium. 100 mEq now. Recheck this evening.
[2018-03-25] MEDS: HEPARIN SOD,PORK IN 0.45% NACL 25,000 UNIT in 0.45% NACL 1 500ML.BAG IV SCH (12:39)
[2018-03-25] MEDS: ATENOLOL 25 MG TAB PO SCH (13:44)
--- NOTE | 2018-03-25 15:50 | P.PN ---
Subjective Progress Note Date: 03/25/18 This is a 63-year-old male patient was had a poor health condition due to his chronic alcoholism, who presented to the hospital few days back because of worsening shortness of breath, exertional dyspnea, orthopnea, progressive lower extremity edema and his symptoms were typical of congestion heart failure. Furthermore, the patient was confirmed to have heart failure and the echocardiogram showed severe cardiomyopathy with an ejection fraction of less than 20% and the patient was found to have moderate to severe mitral regurgitation and moderate degree of pulmonary hypertension. He had significant amount of tricuspid regurgitation in addition. He had global hypokinesis. His BNP level at time of admission was 3900. He is free of any chest pain. He was found to be in atrial fibrillation. This is a chronic problem. The patient was taking Coumadin on outpatient basis and his INR at time of admission was 1.6. Currently remains in atrial fibrillation and his rate is controlled with use of atenolol 50 mg by mouth twice a day. He is also on IV heparin and the Coumadin has been discontinued. He has significant lower extremity edema. He has developed an acute kidney injury related to ATN/ cardiorenal factors as the patient is being diuresis with Lasix 80 mg IV push every 12 hours and despite that amount of urine output has been limited. This patient a chance to the intensive care unit yesterday. Apparently he was having episodes of bradycardia. I limited the rhythm strips and the patient was having atrial fibrillation with low rate essentially the mid 40s. No evidence of any AV block's or third-degree AV block. During this time the patient was becoming symptomatic when he would also become briefly unresponsive and diaphoretic, a presyncope-like of picture. The patient would also get episodically hypoxemic. Limited amount of activity would make him drop his pulse ox of the mid 70s. He is currently placed on oxygen at 5 L to maintain a saturation above 90%. Nevertheless, as mentioned, even while trying to get up and sitting up in a sitting position the patient would desaturate easily and it' ll take him probably a minute or 2 to recover from his oxygen desaturation. As such she has very limited reserve. He continues to have edematous lower extremity edema. Denies having any chest pain. He has history of smoking has history of COPD. The chest x-ray was obtained yesterday showed evidence of a moderate-sized right-sided pleural effusion. On 03/24/2018, there has been considerable improvement the patient's condition compared to yesterday. Overall the patient has responded diuretics and his produced significant amount of urine output since yesterday. His home I status improved and is less short of breath. The patient has diuresed more than 2.5 L and this is improved significantly his pulmonary status. He continues to have lower extremity edema. On today's chest x-ray there was a right-sided pleural effusion. There is also also some markings on the yesterday. Nevertheless, inserting a small needle into the right hemithorax did not yield any significant return and based on that I aborted the procedure. I did not proceed with a thoracentesis. Very much likely the patient is improved significantly in terms of his pleural effusion in the volume status since yesterday. He remains in atrial fibrillation. He remains on IV heparin. INR today is at 1.6. PTT is therapeutic. No chest pain. No altered mentation. He was having some encephalopathy yesterday which seems to be much recovered on today's evaluation. No nausea. No vomiting. No chest pain. No other significant events overnight. Meanwhile, the patient's renal function remains stable with a creatinine of 2.3. The patient is on Lasix drip at 10 mg an hour. He is also on atenolol 25 mg by mouth twice a day. On 03/25/2008 and I'm seeing this patient for a follow-up. The patient continues to improve. The patient is now having any respiratory distress. Chest x-ray from today showing still persistent right lung opacity/effusion. Note that I attempted a thoracentesis yesterday and I was unable to drain the pleural fluid. Based on that, a CAT scan of the chest was ordered today without contrast and that showed right-sided pleural effusion along with compressive atelectasis involving the right middle and right lower lobe area. I think the fluid is essentially drainable. Nevertheless, based on ongoing improvement, I decided to proceed with diuretics specially the patient has noted excellent response to diuresis. The patient is currently on IV Lasix. The patient IV Lasix 40 mg every 8 hours. The neck fluid balance over the past 24 hours has been -6.1 L. There is marked improvement in lower extremity edema. Creatinine is down to 1.6. The patient's potassium level is down to 2.7 seconds diuresis and this needs to be replaced. Otherwise, creatinine is down from 2.3 down to 1.6. Rest of the blood work and electrodes are all within normal limits. Remains on IV heparin. PTT is therapeutic. Objective - Vital Signs Vital signs: Vital Signs Temp 98.3 F 03/25/18 12:00 Pulse 94 03/25/18 13:00 Resp 17 03/25/18 13:00 BP 94/66 03/25/18 13:00 Pulse Ox 97 03/25/18 13:00 Intake & Output 03/24/18 03/25/18 03/25/18 18:59 06:59 18:59 Intake Total 801.891 9139.516 878.484 Output Total 3135 5060 1885 Balance -2238.256 -3908.484 -1006.516 Weight 106.3 kg Intake: IV 240 240 40 .9 240 240 40 Intake, IV Titration 656.744 411.516 88.484 Amount Furosemide 250 mg In 250 Sodium Chloride 0.9% 225 ml @ 10 MG/HR 10 mls/hr IVP .Q24H [facility] Rx#: [id number] Heparin Sod,Pork in 0.45% 406.744 411.516 88.484 NaCl 25,000 unit In 0.45 % NaCl 1 500ml.bag @ 10.5 UNITS/KG/HR 20 mls/hr IV .Q24H [facility] Rx#:[id number] Oral 500 750 Output: Urine 3135 5060 1885 Other: Voiding Method Indwelling Catheter Indwelling Catheter Indwelling Catheter # Voids 0 - Exam Gen. appearance the patient is a sitting up on a chair. Awake and alert and nonacute distress Head exam was generally normal. There was no scleral icterus or corneal arcus. Mucous membranes were moist. Neck was supple and with jugular venous distension, thyromegaly, or carotid bruits. Carotids were easily palpable bilaterally. There was no adenopathy. Lungs sounds are diminished vision the right lung base along with some minimal bibasilar crackles and dullness in the right lung basilar area Heart sounds are irregular, positive S1-S2 and there is an S3 gallop. Overall heart sounds are distant. No significant right ventricular heave or thrill. There is a systolic ejection murmur grade 3/6 heard along the left sternal border. Abdominal exam revealed normal bowel sounds. The abdomen was soft, non-tender, and without masses, organomegaly, or appreciable enlargement of the abdominal aorta. Extremities revealed +1 edema. There is no cyanosis or clubbing at this point. No open wounds or ulcerations. Neurologically the patient was awake and alert at a time of my evaluation he had no focal neurological deficit. Nevertheless I was told that the patient was on and off having episodes of confusion. Examination of the skin revealed no evidence of significant rashes, suspicious appearing nevi or other concerning lesions. - Labs CBC & Chem 7: 03/25/18 05:15 03/25/18 05:15 Labs: Abnormal Lab Results - Last 24 Hours (Table) 03/24/18 03/25/18 03/25/18 Range/Units 18:04 05:15 05:15 RBC 3.38 L (4.30-5.90) m/uL Hgb 9.6 L (13.0-17.5) gm/dL Hct 31.6 L (39.0-53.0) % MCHC 30.5 L (31.0-37.0) g/dL RDW 19.2 H (11.5-15.5) % Plt Count 122 L (150-450) k/uL Lymphocytes # 0.6 L (1.0-4.8) k/uL APTT 51.7 H (22.0-30.0) sec Potassium 2.7 L* (3.5-5.1) mmol/L Chloride 97 L (98-107) mmol/L BUN 55 H (9-20) mg/dL Creatinine 1.66 H (0.66-1.25) mg/dL Calcium 8.0 L (8.4-10.2) mg/dL 03/25/18 03/25/18 Range/Units 05:15 12:35 RBC (4.30-5.90) m/uL Hgb (13.0-17.5) gm/dL Hct (39.0-53.0) % MCHC (31.0-37.0) g/dL RDW (11.5-15.5) % Plt Count (150-450) k/uL Lymphocytes # (1.0-4.8) k/uL APTT 82.5 H 47.1 H (22.0-30.0) sec Potassium (3.5-5.1) mmol/L Chloride (98-107) mmol/L BUN (9-20) mg/dL Creatinine (0.66-1.25) mg/dL Calcium (8.4-10.2) mg/dL Assessment and Plan Plan: Assessment 1 acute on chronic systolic heart failure with global hypokinesis and ejection fraction of 20%, consider ischemic versus nonischemic cardiomyopathy as the patient may have an underlying coronary artery disease. He has has no history of alcoholism. Clinically improving and the patient is responding nicely to diuresis as the patient is recovering from acute kidney injury. He remains negative fluid balance. Lower some the edema is improving. Continues to have some small to moderate-sized right-sided pleural effusion along with compressive atelectasis of the right lung base. 2 moderate severe mitral regurgitation 3 moderate to severe pulmonary hypertension secondary to left-sided heart failure and mitral valve disease 4 moderate-sized right-sided pleural effusion, please refer to the results of the CAT scan of the chest that also shows compressive atelectasis of the right lower lobe. 5 chronic atrial fibrillation, rate is controlled 6 acute on chronic hypoxic respiratory failure. 7 alcoholism 8 acute kidney injury, secondary to ATN and cardiio renal factors, improving and the creatinine is down to 1.6. The patient is not responding to diuretics 9 chronic normocytic anemia 10 chronic lower extremity edema, improving 11 hyponatremia secondary to cardiomyopathy/CHF, improved and recovered and sodium level is normalized 12 metabolic acidosis with a small anion gap, recovered and serum bicarbonate is normalized. 13 hyperkalemia, recovered and the patient is hypokalemic secondary to aggressive diuresis 14 episodes of bradycardia with a A. fib rhythm, symptomatic 15 prostate cancer Plan The ask of the chest was noted. No need to repeat thoracentesis at this point in time spent that the patient is responding nicely to diuretics. 13 IV Lasix. Replace potassium level. Sodium level is normalized. The patient is also on long-term articulation with warfarin the dose being adjusted according to the PT /INR. INR today from yesterday's 1.7 and repeat values pending from today. Meanwhile, continue with IV heparin. The findings on the case. We'll continue to follow make further recommendations based on his overall progress.
[2018-03-25 16:18] LABS: INR 1.4 (<1.2); Prothrombin Time 12.8 sec (9.0-12.0)
[2018-03-25] MEDS ORDERED: WARFARIN 5 MG TAB PO SCH (18:00)
[2018-03-25] MEDS: FUROSEMIDE 10 MG/ML 4 ML VIAL IV SCH (18:33)
[2018-03-25] MEDS: SODIUM CHLORIDE 0.9% 1,000 ML IV SCH (18:53)
[2018-03-25] MEDS: SENNOSIDES 8.6 MG TAB PO SCH (20:20)
[2018-03-25] MEDS: CYCLOBENZAPRINE 10 MG TAB PO SCH (20:26)
[2018-03-26] MEDS: ATENOLOL 25 MG TAB PO SCH ×2 (00:29→12:25)
[2018-03-26] MEDS: FUROSEMIDE 10 MG/ML 4 ML VIAL IV SCH ×4 (00:31→23:21)
[2018-03-26] MEDS: POTASSIUM CHLORIDE ER 20 MEQ TAB.ER PO SCH ×4 (00:31→11:52)
[2018-03-26 05:03] LABS: Anisocytosis Slight; Basophils % (A) 0 %; Eosinophils # (A) 0.1 k/uL (0-0.7); Eosinophils % (A) 1 %; HCT 31.1 % (39.0-53.0); HGB 9.4 gm/dL (13.0-17.5); Hypochromasia Marked; Lymphocytes # (A) 0.7 k/uL (1.0-4.8); Lymphocytes % (A) 16 %; MCH 28.1 pg (25.0-35.0); MCHC 30.2 g/dL (31.0-37.0); MCV 93.2 fL (80.0-100.0); Mean Platelet Volume 8.2; Monocytes # (A) 0.5 k/uL (0-1.0); Monocytes % (A) 13 %; Neutrophils # (A) 2.6 k/uL (1.3-7.7); Neutrophils % (A) 67 %; Platelet Count 112 k/uL (150-450); Poikilocytosis Slight; RBC 3.33 m/uL (4.30-5.90); RDW 19.2 % (11.5-15.5)
[2018-03-26 05:09] LABS: INR 1.3 (<1.2); Partial Thromboplastin Time 50.2 sec (22.0-30.0); Prothrombin Time 11.9 sec (9.0-12.0)
[2018-03-26 05:52] LABS: Calcium 8.4 mg/dL (8.4-10.2); Magnesium 1.8 mg/dL (1.6-2.3); Potassium 3.4 mmol/L (3.5-5.1)
--- NOTE | 2018-03-26 06:55 | XR ---
EXAMINATION TYPE: XR chest 1V portable DATE OF EXAM: 03/26/2018 HISTORY: HF. REFERENCE: Previous study dated 03/25/2018. FINDINGS: There is right basilar airspace disease. There is a right-sided effusion. Aeration has impr keely slightly. Heart size is partially obscured but appears enlarged. IMPRESSION: 1. CARDIOMEGALY. 2. RIGHT BASILAR AIRSPACE DISEASE. 3. RIGHT-SIDED EFFUSION.
[2018-03-26] MEDS: DOCUSATE 100 MG CAP PO SCH ×2 (08:34→20:38)
[2018-03-26] MEDS: PANTOPRAZOLE 40 MG TABLET PO SCH (08:48)
[2018-03-26] MEDS: MIDODRINE 5 MG TAB PO SCH ×3 (08:49→17:04)
[2018-03-26] MEDS: ALLOPURINOL 100 MG TAB PO SCH (08:50)
[2018-03-26] MEDS: MAGNESIUM OXIDE 400 MG TAB PO SCH (08:50)
--- NOTE | 2018-03-26 09:27 | P.PN ---
Subjective Progress Note Date: 03/25/18 Principal diagnosis: Acute congestive cardiac failure secondary to systolic dysfunction and respiratory failure 63-year-old gentleman admitted to the hospital with shortness of breath and atrial fibrillation rapid ventricular rate. He also had significant anasarca patient developed acute kidney injury and oliguria. Patient was seen by nephrology as well as the gas engine performance engineer. The patient has finally opened up and is noticing significantly. He has lost 5 kg is over the last 24 hours. He is feeling markedly improved. Denies shortness of breath palpitations chest pain. Still has significant anasarca. Apparently the right thoracentesis was a dry tap. No palpitations. Atrial fibrillation rate is controlled. REVIEW OF SYSTEMS: Neuro: Denies any headaches dizziness. Psych: Denies anxiety depression feels oriented. Cardiac: Denies chest pain and angina palpitations. Respiratory: Denies shortness of breath cough. GI: Denies nausea vomiting or abdominal pain. No diarrhea or constipation, no bowel movement yet. : Has IDC with no hematuria Extremities: Denies pain. No edema. Skin: Intact. Constitutional: No fever, chills. Objective - Vital Signs Vital signs: Vital Signs Temp 98.6 F 03/26/18 04:00 Pulse 79 03/26/18 05:00 Resp 19 03/26/18 05:00 BP 119/79 03/26/18 04:00 Pulse Ox 98 03/26/18 04:00 Intake & Output 03/25/18 03/26/18 03/26/18 18:59 06:59 18:59 Intake Total 878.484 250 Output Total 2230 5000 Balance -1351.516 -4750 Weight 100 kg Intake: IV 40 .9 40 Intake, IV Titration 88.484 Amount Heparin Sod,Pork in 0.45% 88.484 NaCl 25,000 unit In 0.45 % NaCl 1 500ml.bag @ 10.5 UNITS/KG/HR 20 mls/hr IV .Q24H [facility] Rx#:[id number] Oral 750 250 Output: Urine 2230 5000 Other: Voiding Method Indwelling Catheter Indwelling Catheter PHYSICAL EXAMINATION: Cooperative, at present in no acute distress. HEENT: Neck supple. No JVD. Chest: Decreased airflow right base otherwise clear Cardiac: Normal S1 and S2 irregularly irregular no gallops systolic murmur at the apex. Abdomen: Soft bowel sounds present. Extremities: 3+edema no tenderness Neurologically: Awake, alert, oriented with well-coordinated movements. - Labs CBC & Chem 7: 03/26/18 04:43 03/26/18 04:43 Labs: Abnormal Lab Results - Last 24 Hours (Table) 03/25/18 03/25/18 03/25/18 Range/Units 12:35 12:35 23:50 RBC (4.30-5.90) m/uL Hgb (13.0-17.5) gm/dL Hct (39.0-53.0) % MCHC (31.0-37.0) g/dL RDW (11.5-15.5) % Plt Count (150-450) k/uL Lymphocytes # (1.0-4.8) k/uL PT 12.8 H (9.0-12.0) sec INR 1.4 H (<1.2) APTT 47.1 H (22.0-30.0) sec Potassium 3.1 L (3.5-5.1) mmol/L Chloride (98-107) mmol/L Carbon Dioxide (22-30) mmol/L BUN (9-20) mg/dL Creatinine (0.66-1.25) mg/dL 03/26/18 03/26/18 03/26/18 Range/Units 04:43 04:43 04:43 RBC 3.33 L (4.30-5.90) m/uL Hgb 9.4 L (13.0-17.5) gm/dL Hct 31.1 L (39.0-53.0) % MCHC 30.2 L (31.0-37.0) g/dL RDW 19.2 H (11.5-15.5) % Plt Count 112 L (150-450) k/uL Lymphocytes # 0.7 L (1.0-4.8) k/uL PT (9.0-12.0) sec INR 1.3 H (<1.2) APTT 50.2 H (22.0-30.0) sec Potassium 3.4 L (3.5-5.1) mmol/L Chloride 97 L (98-107) mmol/L Carbon Dioxide 34 H (22-30) mmol/L BUN 47 H (9-20) mg/dL Creatinine 1.34 H (0.66-1.25) mg/dL Assessment and Plan Assessment: ASSESSMENT: 1. Acute congestive cardiac failure time his systolic dysfunction. 2. Cardiac heart is improved. 3. Atrial fibrillation rapid ventricular rate controlled. 4. Acute kidney injury. 5. History of alcohol dependency . PLAN: Continue present medical regimen with Lasix. We can switch to Lasix over to IVP and discontinue Lasix drip and Klein catheter. He shouldn't be noted to telemetry. His ambulation. Nephrology and the gas engine performance engineer following with the patient post tronic machine operator also on the case. Patient's status discussed with patient.
--- NOTE | 2018-03-26 09:43 | P.PN ---
Subjective Progress Note Date: 03/26/18 Principal diagnosis: Acute congestive cardiac failure secondary to systolic dysfunction and respiratory failure This 63-year-old gentleman was admitted to the hospital because of shortness of breath and rapid atrial fibrillation. It for breast his rate control. The patient's CHF is improved significantly. She had developed cardiogenic shock with the hypotension and the marked anasarca atrial fibrillation. This is improved to the has he had initially acute kidney injury with oliguria. He has finally responded to diuretics and his earring out significant amount of urine. He has lost further weight. He is alert vital signs are stable. His breathing is good the patient denies much symptoms. The stent was a Klein catheter. His IV Lasix drip was changed to Lasix 40 every 8 hours which she possibly could be continued today. Potential discharge home by Wednesday patient awaiting transfer to telemetry. REVIEW OF SYSTEMS: Neuro: Denies any headaches dizziness. Psych: Denies anxiety depression feels oriented. Cardiac: Denies chest pain and angina palpitations. Respiratory: Denies shortness of breath cough. GI: Denies nausea vomiting or abdominal pain. No diarrhea or constipation, no bowel movement yet. : Denies dysuria hematuria. Extremities: Denies pain. No edema. Skin: Intact. Constitutional: No fever, chills. Objective - Vital Signs Vital signs: Vital Signs Temp 98.6 F 03/26/18 04:00 Pulse 79 03/26/18 05:00 Resp 19 03/26/18 05:00 BP 119/79 03/26/18 04:00 Pulse Ox 98 03/26/18 04:00 Intake & Output 03/25/18 03/26/18 03/26/18 18:59 06:59 18:59 Intake Total 878.484 250 Output Total 2230 5000 Balance -1351.516 -4750 Weight 100 kg Intake: IV 40 .9 40 Intake, IV Titration 88.484 Amount Heparin Sod,Pork in 0.45% 88.484 NaCl 25,000 unit In 0.45 % NaCl 1 500ml.bag @ 10.5 UNITS/KG/HR 20 mls/hr IV .Q24H [facility] Rx#:[id number] Oral 750 250 Output: Urine 2230 5000 Other: Voiding Method Indwelling Catheter Indwelling Catheter PHYSICAL EXAMINATION: Cooperative, at present in no acute distress. HEENT: Neck supple. No JVD. Chest: Decreased airflow right base otherwise clear Cardiac: Normal S1-S2 with no gallops. Irregularly irregular rhythm systolic murmur 2/6 at apex . Abdomen: Soft bowel sounds present. Extremities: 3+ edema no tenderness Neurologically: Awake, alert, oriented with well-coordinated movements. - Labs CBC & Chem 7: 03/26/18 04:43 03/26/18 04:43 Labs: Abnormal Lab Results - Last 24 Hours (Table) 03/25/18 03/25/18 03/25/18 Range/Units 12:35 12:35 23:50 RBC (4.30-5.90) m/uL Hgb (13.0-17.5) gm/dL Hct (39.0-53.0) % MCHC (31.0-37.0) g/dL RDW (11.5-15.5) % Plt Count (150-450) k/uL Lymphocytes # (1.0-4.8) k/uL PT 12.8 H (9.0-12.0) sec INR 1.4 H (<1.2) APTT 47.1 H (22.0-30.0) sec Potassium 3.1 L (3.5-5.1) mmol/L Chloride (98-107) mmol/L Carbon Dioxide (22-30) mmol/L BUN (9-20) mg/dL Creatinine (0.66-1.25) mg/dL 03/26/18 03/26/18 03/26/18 Range/Units 04:43 04:43 04:43 RBC 3.33 L (4.30-5.90) m/uL Hgb 9.4 L (13.0-17.5) gm/dL Hct 31.1 L (39.0-53.0) % MCHC 30.2 L (31.0-37.0) g/dL RDW 19.2 H (11.5-15.5) % Plt Count 112 L (150-450) k/uL Lymphocytes # 0.7 L (1.0-4.8) k/uL PT (9.0-12.0) sec INR 1.3 H (<1.2) APTT 50.2 H (22.0-30.0) sec Potassium 3.4 L (3.5-5.1) mmol/L Chloride 97 L (98-107) mmol/L Carbon Dioxide 34 H (22-30) mmol/L BUN 47 H (9-20) mg/dL Creatinine 1.34 H (0.66-1.25) mg/dL Assessment and Plan Assessment: ASSESSMENT: 1. Acute congestive cardiac failure time his systolic dysfunction. 2. Cardiac heart is improved. 3. Atrial fibrillation rapid ventricular rate controlled. 4. Acute kidney injury improving 5. History of alcohol dependency . PLAN: Continue present medical regimen with Lasix. We can switch to Lasix over to IVP and discontinue Lasix drip and Klein catheter. He could be transferred to telemetry. Advised ambulation. Nephrology and the brand advocate following with the patient demonstrator sewing techniques also on the case. Patient's status discussed with patient. Patient hopefully be able to be discharged home by Wednesday or Wednesday
--- NOTE | 2018-03-26 11:12 | P.PN ---
Subjective Progress Note Date: 03/26/18 (nephrology) Principal diagnosis: acute kidney injury and volume overload seen and examined for the follow-up of acute kidney injury. Baseline creatinine is 0.9 in 2015. Admitted with a peak creatinine of 2.3 improved to 1.3 today. Making good amount of urine, no nausea vomiting diarrhea. Objective - Vital Signs Vital signs: Vital Signs Temp 98.7 F 03/26/18 08:00 Pulse 99 03/26/18 10:00 Resp 24 03/26/18 10:00 BP 106/75 03/26/18 10:00 Pulse Ox 97 03/26/18 08:00 Intake & Output 03/25/18 03/26/18 03/26/18 18:59 06:59 18:59 Intake Total 878.484 250 Output Total 2230 5000 350 Balance -1351.516 -4750 -350 Weight 100 kg Intake: IV 40 .9 40 Intake, IV Titration 88.484 Amount Heparin Sod,Pork in 0.45% 88.484 NaCl 25,000 unit In 0.45 % NaCl 1 500ml.bag @ 10.5 UNITS/KG/HR 20 mls/hr IV .Q24H [facility] Rx#:[id number] Oral 750 250 Output: Urine 2230 5000 350 Other: Voiding Method Indwelling Catheter Indwelling Catheter - Exam sitting in the chest no acute distress S1-S2 heard Lungs clear Edema - Labs CBC & Chem 7: 03/26/18 04:43 03/26/18 04:43 Labs: Abnormal Lab Results - Last 24 Hours (Table) 03/25/18 03/25/18 03/25/18 Range/Units 12:35 12:35 23:50 RBC (4.30-5.90) m/uL Hgb (13.0-17.5) gm/dL Hct (39.0-53.0) % MCHC (31.0-37.0) g/dL RDW (11.5-15.5) % Plt Count (150-450) k/uL Lymphocytes # (1.0-4.8) k/uL PT 12.8 H (9.0-12.0) sec INR 1.4 H (<1.2) APTT 47.1 H (22.0-30.0) sec Potassium 3.1 L (3.5-5.1) mmol/L Chloride (98-107) mmol/L Carbon Dioxide (22-30) mmol/L BUN (9-20) mg/dL Creatinine (0.66-1.25) mg/dL 03/26/18 03/26/18 03/26/18 Range/Units 04:43 04:43 04:43 RBC 3.33 L (4.30-5.90) m/uL Hgb 9.4 L (13.0-17.5) gm/dL Hct 31.1 L (39.0-53.0) % MCHC 30.2 L (31.0-37.0) g/dL RDW 19.2 H (11.5-15.5) % Plt Count 112 L (150-450) k/uL Lymphocytes # 0.7 L (1.0-4.8) k/uL PT (9.0-12.0) sec INR 1.3 H (<1.2) APTT 50.2 H (22.0-30.0) sec Potassium 3.4 L (3.5-5.1) mmol/L Chloride 97 L (98-107) mmol/L Carbon Dioxide 34 H (22-30) mmol/L BUN 47 H (9-20) mg/dL Creatinine 1.34 H (0.66-1.25) mg/dL Assessment and Plan Assessment: #1 acute kidney injury secondary to cardiorenal syndrome. Creatinine improving close to baseline. #2 CHF with systolic dysfunction. #3 hypervolemia with edema #4 hypokalemia secondary to diuretics #5 hyperphosphatemia Plan: #1 continue with diuretics Lasix 40 mg IV 3 times a day. Plan to change to twice a day by tomorrow. #2. Strict ins and outs #3 avoid nephrotoxic agents and hypotensive episodes. #4 replace electrolytes maintain potassium more than 4 and magnesium more than 2.
--- NOTE | 2018-03-26 11:26 | PN ---
PROGRESS NOTE Mr. Hodge is a 63-year-old male with a history of atrial fibrillation who presented with respiratory failure and evidence congestive heart failure. He has a history of alcoholism in the past. He was quite dyspneic and had evidence of ATN. He is feeling much better this morning. His breathing is better. He has slept better. His peripheral edema has improved. His echocardiogram has revealed a severely impaired left ventricular systolic function. He is continued at this time on atenolol 25 mg twice a day, Lasix 40 mg IV q.8 hours. He is on Coumadin. PHYSICAL EXAMINATION: Blood pressure is running in the low 100s with a heart rate in the 70s. LUNGS: Clear. HEART: Irregularly irregular. S1, S2. No S3, with a systolic murmur. ABDOMEN: Soft, obese, nontender EXTREMITIES: Plus 2 edema. LAB DATA: BUN 47, creatinine 1.34, improved since yesterday. Potassium 3.4. Magnesium 1.8. INR is 1.3. Hemoglobin of 9.4. IMPRESSION: 1. Evidence of congestive heart failure with severe cardiomyopathy. 2. Atrial fibrillation. 3. Acute kidney injury, improving. RECOMMENDATIONS: Will continue on the present therapy at this point with the IV Lasix. Follow his renal function. Depending on his blood pressure, further adjustment of his medication will be done. In view of the renal function abnormality, he is not a candidate for an BERNARDA inhibitor, but if his blood pressure is stable, then hydralazine can be added to his regimen; and depending on his blood pressure, Tenormin can be switched to Coreg, but I will hold on that at this time until he stabilizes. MMODL / IJN: [id number] /
--- NOTE | 2018-03-26 14:12 | P.PN ---
Subjective Progress Note Date: 03/26/18 This is a 63-year-old male patient was had a poor health condition due to his chronic alcoholism, who presented to the hospital few days back because of worsening shortness of breath, exertional dyspnea, orthopnea, progressive lower extremity edema and his symptoms were typical of congestion heart failure. Furthermore, the patient was confirmed to have heart failure and the echocardiogram showed severe cardiomyopathy with an ejection fraction of less than 20% and the patient was found to have moderate to severe mitral regurgitation and moderate degree of pulmonary hypertension. He had significant amount of tricuspid regurgitation in addition. He had global hypokinesis. His BNP level at time of admission was 3900. He is free of any chest pain. He was found to be in atrial fibrillation. This is a chronic problem. The patient was taking Coumadin on outpatient basis and his INR at time of admission was 1.6. Currently remains in atrial fibrillation and his rate is controlled with use of atenolol 50 mg by mouth twice a day. He is also on IV heparin and the Coumadin has been discontinued. He has significant lower extremity edema. He has developed an acute kidney injury related to ATN/ cardiorenal factors as the patient is being diuresis with Lasix 80 mg IV push every 12 hours and despite that amount of urine output has been limited. This patient a chance to the intensive care unit yesterday. Apparently he was having episodes of bradycardia. I limited the rhythm strips and the patient was having atrial fibrillation with low rate essentially the mid 40s. No evidence of any AV block's or third-degree AV block. During this time the patient was becoming symptomatic when he would also become briefly unresponsive and diaphoretic, a presyncope-like of picture. The patient would also get episodically hypoxemic. Limited amount of activity would make him drop his pulse ox of the mid 70s. He is currently placed on oxygen at 5 L to maintain a saturation above 90%. Nevertheless, as mentioned, even while trying to get up and sitting up in a sitting position the patient would desaturate easily and it' ll take him probably a minute or 2 to recover from his oxygen desaturation. As such she has very limited reserve. He continues to have edematous lower extremity edema. Denies having any chest pain. He has history of smoking has history of COPD. The chest x-ray was obtained yesterday showed evidence of a moderate-sized right-sided pleural effusion. On 03/24/2018, there has been considerable improvement the patient's condition compared to yesterday. Overall the patient has responded diuretics and his produced significant amount of urine output since yesterday. His home I status improved and is less short of breath. The patient has diuresed more than 2.5 L and this is improved significantly his pulmonary status. He continues to have lower extremity edema. On today's chest x-ray there was a right-sided pleural effusion. There is also also some markings on the yesterday. Nevertheless, inserting a small needle into the right hemithorax did not yield any significant return and based on that I aborted the procedure. I did not proceed with a thoracentesis. Very much likely the patient is improved significantly in terms of his pleural effusion in the volume status since yesterday. He remains in atrial fibrillation. He remains on IV heparin. INR today is at 1.6. PTT is therapeutic. No chest pain. No altered mentation. He was having some encephalopathy yesterday which seems to be much recovered on today's evaluation. No nausea. No vomiting. No chest pain. No other significant events overnight. Meanwhile, the patient's renal function remains stable with a creatinine of 2.3. The patient is on Lasix drip at 10 mg an hour. He is also on atenolol 25 mg by mouth twice a day. On 03/25/2008 and I'm seeing this patient for a follow-up. The patient continues to improve. The patient is now having any respiratory distress. Chest x-ray from today showing still persistent right lung opacity/effusion. Note that I attempted a thoracentesis yesterday and I was unable to drain the pleural fluid. Based on that, a CAT scan of the chest was ordered today without contrast and that showed right-sided pleural effusion along with compressive atelectasis involving the right middle and right lower lobe area. I think the fluid is essentially drainable. Nevertheless, based on ongoing improvement, I decided to proceed with diuretics specially the patient has noted excellent response to diuresis. The patient is currently on IV Lasix. The patient IV Lasix 40 mg every 8 hours. The neck fluid balance over the past 24 hours has been -6.1 L. There is marked improvement in lower extremity edema. Creatinine is down to 1.6. The patient's potassium level is down to 2.7 seconds diuresis and this needs to be replaced. Otherwise, creatinine is down from 2.3 down to 1.6. Rest of the blood work and electrodes are all within normal limits. Remains on IV heparin. PTT is therapeutic. On 03/26/2018, this patient continues to show signs of improvement. He has diabetes extensively. He has lost more than 10 kg of body weight. Lower extremity edema is improving. Chest x-ray also shows improvement in the size of the right-sided pleural effusion. Remains in atrial fibrillation. Rate is controlled. He is on IV heparin. PT/INR is subtherapeutic. He is receiving IV Lasix 40 mg IV push every 8 hours. He is also on atenolol 25 mg by mouth twice a day. No other complaint otherwise. No altered mentation. No chest pain. No nausea or vomiting. No diarrhea or abdominal pain. No other complaints otherwise. Objective - Vital Signs Vital signs: Vital Signs Temp 98.2 F 03/26/18 12:07 Pulse 112 H 03/26/18 12:07 Resp 17 03/26/18 12:07 BP 109/87 03/26/18 12:07 Pulse Ox 97 03/26/18 12:07 Intake & Output 03/25/18 03/26/18 03/26/18 18:59 06:59 18:59 Intake Total 878.484 250 Output Total 2230 5000 775 Balance -1351.516 -1420 -775 Weight 100 kg Intake: IV 40 .9 40 Intake, IV Titration 88.484 Amount Heparin Sod,Pork in 0.45% 88.484 NaCl 25,000 unit In 0.45 % NaCl 1 500ml.bag @ 10.5 UNITS/KG/HR 20 mls/hr IV .Q24H [facility] Rx#:[id number] Oral 750 250 Output: Urine 2230 5000 775 Other: Voiding Method Indwelling Catheter Indwelling Catheter Indwelling Catheter - Exam Gen. appearance the patient is a sitting up on a chair. Awake and alert and nonacute distress Head exam was generally normal. There was no scleral icterus or corneal arcus. Mucous membranes were moist. Neck was supple and with jugular venous distension, thyromegaly, or carotid bruits. Carotids were easily palpable bilaterally. There was no adenopathy. Lungs sounds are diminished vision the right lung base along with some minimal bibasilar crackles and dullness in the right lung basilar area Heart sounds are irregular, positive S1-S2 and there is an S3 gallop. Overall heart sounds are distant. No significant right ventricular heave or thrill. There is a systolic ejection murmur grade 3/6 heard along the left sternal border. Abdominal exam revealed normal bowel sounds. The abdomen was soft, non-tender, and without masses, organomegaly, or appreciable enlargement of the abdominal aorta. Extremities revealed +1 edema. There is no cyanosis or clubbing at this point. No open wounds or ulcerations. Neurologically the patient was awake and alert at a time of my evaluation he had no focal neurological deficit. Nevertheless I was told that the patient was on and off having episodes of confusion. Examination of the skin revealed no evidence of significant rashes, suspicious appearing nevi or other concerning lesions. - Labs CBC & Chem 7: 03/26/18 04:43 03/26/18 04:43 Labs: Abnormal Lab Results - Last 24 Hours (Table) 03/25/18 03/25/18 03/26/18 Range/Units 12:35 23:50 04:43 RBC 3.33 L (4.30-5.90) m/uL Hgb 9.4 L (13.0-17.5) gm/dL Hct 31.1 L (39.0-53.0) % MCHC 30.2 L (31.0-37.0) g/dL RDW 19.2 H (11.5-15.5) % Plt Count 112 L (150-450) k/uL Lymphocytes # 0.7 L (1.0-4.8) k/uL PT 12.8 H (9.0-12.0) sec INR 1.4 H (<1.2) APTT (22.0-30.0) sec Potassium 3.1 L (3.5-5.1) mmol/L Chloride (98-107) mmol/L Carbon Dioxide (22-30) mmol/L BUN (9-20) mg/dL Creatinine (0.66-1.25) mg/dL 03/26/18 03/26/18 Range/Units 04:43 04:43 RBC (4.30-5.90) m/uL Hgb (13.0-17.5) gm/dL Hct (39.0-53.0) % MCHC (31.0-37.0) g/dL RDW (11.5-15.5) % Plt Count (150-450) k/uL Lymphocytes # (1.0-4.8) k/uL PT (9.0-12.0) sec INR 1.3 H (<1.2) APTT 50.2 H (22.0-30.0) sec Potassium 3.4 L (3.5-5.1) mmol/L Chloride 97 L (98-107) mmol/L Carbon Dioxide 34 H (22-30) mmol/L BUN 47 H (9-20) mg/dL Creatinine 1.34 H (0.66-1.25) mg/dL Assessment and Plan Plan: Assessment 1 acute on chronic systolic heart failure with global hypokinesis and ejection fraction of 20%, consider ischemic versus nonischemic cardiomyopathy as the patient may have an underlying coronary artery disease. He has has no history of alcoholism. The patient clinically much improved and responded very nicely to diuretics. The patient is on Lasix 40 mg every 8 hours and he has been significant amount of negative fluid balance with improvement in the volume status and there is also improvement in the size of the right-sided pleural effusion. Currently is hemodynamically stable. He is on room air oxygen. No shortness of breath. 2 moderate severe mitral regurgitation 3 moderate to severe pulmonary hypertension secondary to left-sided heart failure and mitral valve disease 4 moderate-sized right-sided pleural effusion, please refer to the results of the CAT scan of the chest that also shows compressive atelectasis of the right lower lobe. The patient's subsequent chest x-ray showed improvement in the right-sided pleural effusion and this is considered to be another possible response to diuresis. 5 chronic atrial fibrillation, rate is controlled. PT/INR is subtherapeutic. 6 acute on chronic hypoxic respiratory failure. 7 alcoholism 8 acute kidney injury, secondary to ATN and cardiio renal factors, and the patient had improvement in renal function and creatinine is down to 1.3 9 chronic normocytic anemia 10 chronic lower extremity edema, improving 11 hyponatremia secondary to cardiomyopathy/CHF, improved and recovered and sodium level is normalized 12 metabolic acidosis with a small anion gap, recovered and serum bicarbonate is normalized. 13 hyperkalemia, recovered and the patient is hypokalemic secondary to aggressive diuresis 14 episodes of bradycardia with a A. fib rhythm, symptomatic 15 prostate cancer Plan Continue IV Lasix for another 24 hours. No plans to undergo any thoracentesis. Continue Coumadin 7.5 mg by mouth daily and adjust PT/INR to make the levels more therapeutic. Continue IV heparin. Continue metoprolol. Currently on room oxygen. We'll continue to follow.
[2018-03-26] MEDS: HEPARIN SOD,PORK IN 0.45% NACL 25,000 UNIT in 0.45% NACL 1 500ML.BAG IV SCH (17:05)
[2018-03-26] MEDS: SODIUM CHLORIDE 0.9% 1,000 ML IV SCH (17:06)
[2018-03-26] MEDS ORDERED: WARFARIN 7.5 MG TAB PO SCH (18:00)
[2018-03-26] MEDS ORDERED: Potassium Replacement Protocol 1 EACH MISC MISCELLANE PRN (18:01)
[2018-03-26] MEDS ORDERED: POTASSIUM CHLORIDE ER 20 MEQ TAB.ER PO SCH (19:00)
[2018-03-26] MEDS: traMADol 50 MG TAB PO PRN (20:31)
[2018-03-26] MEDS: SENNOSIDES 8.6 MG TAB PO SCH (20:38)
[2018-03-26] MEDS: CYCLOBENZAPRINE 10 MG TAB PO SCH (21:47)
[2018-03-27] MEDS: ATENOLOL 25 MG TAB PO SCH ×2 (01:23→09:30)
[2018-03-27 05:59] LABS: INR 1.3 (<1.2); Partial Thromboplastin Time 58.1 sec (22.0-30.0); Prothrombin Time 11.9 sec (9.0-12.0)
[2018-03-27 06:04] LABS: Calcium 8.7 mg/dL (8.4-10.2); Magnesium 1.8 mg/dL (1.6-2.3); Phosphorus 3.2 mg/dL (2.5-4.5); Potassium 3.5 mmol/L (3.5-5.1)
[2018-03-27 06:14] LABS: Anisocytosis Slight; Basophils % (A) 0 %; Eosinophils # (A) 0.1 k/uL (0-0.7); Eosinophils % (A) 2 %; HCT 31.8 % (39.0-53.0); HGB 9.5 gm/dL (13.0-17.5); Hypochromasia Marked; Lymphocytes # (A) 0.8 k/uL (1.0-4.8); Lymphocytes % (A) 23 %; MCHC 29.9 g/dL (31.0-37.0); MCV 93.7 fL (80.0-100.0); Macrocytosis Slight; Mean Platelet Volume 8.6; Monocytes # (A) 0.5 k/uL (0-1.0); Monocytes % (A) 14 %; Neutrophils # (A) 2.1 k/uL (1.3-7.7); Neutrophils % (A) 58 %; Platelet Count 113 k/uL (150-450); Poikilocytosis Slight; RBC 3.39 m/uL (4.30-5.90); RDW 18.9 % (11.5-15.5); WBC 3.6 k/uL (3.8-10.6)
--- NOTE | 2018-03-27 06:59 | XR ---
EXAMINATION TYPE: XR chest 1V portable DATE OF EXAM: 03/27/2018 HISTORY: HF. REFERENCE: Previous study dated 03/26/2018. FINDINGS: The heart is enlarged. There is right basilar airspace disease which may have worsened slig htly. There is a right-sided effusion. The left lung is clear. IMPRESSION: 1. CARDIOMEGALY. 2. RIGHT BASILAR AIRSPACE DISEASE WHICH MAY HAVE WORSENED SLIGHTLY. 3. RIGHT-SIDED EFFUSION.
[2018-03-27] MEDS: POTASSIUM CHLORIDE ER 20 MEQ TAB.ER PO SCH ×2 (07:05→09:30)
--- NOTE | 2018-03-27 09:22 | P.PN ---
Subjective Progress Note Date: 03/27/18 Principal diagnosis: acute kidney injury and volume overload seen and examined for the follow-up of acute kidney injury. Baseline creatinine is 0.9 in 2015. Admitted with a peak creatinine of 2.3 improved to 1.3 today. Making good amount of urine, no nausea vomiting diarrhea. 3 L negative in the last 24 hours. Objective - Vital Signs Vital signs: Vital Signs Temp 97.8 F 03/27/18 04:00 Pulse 101 H 03/27/18 05:00 Resp 11 L 03/27/18 05:00 BP 114/77 03/27/18 04:00 Pulse Ox 95 03/27/18 04:00 Intake & Output 03/26/18 03/27/18 03/27/18 18:59 06:59 18:59 Intake Total 500 240 Output Total 1125 2900 Balance -625 -2660 Weight 97.8 kg Intake: IV 240 .9 240 Intake, IV Titration 500 Amount Heparin Sod,Pork in 0.45% 500 NaCl 25,000 unit In 0.45 % NaCl 1 500ml.bag @ 10.5 UNITS/KG/HR 20 mls/hr IV .Q24H [facility] Rx#:[id number] Output: Urine 1125 2900 Other: Voiding Method Indwelling Catheter Indwelling Catheter - Exam sitting in the chest no acute distress S1-S2 heard Lungs clear Edema - Labs CBC & Chem 7: 03/27/18 05:09 03/27/18 05:09 Labs: Abnormal Lab Results - Last 24 Hours (Table) 03/27/18 03/27/18 03/27/18 Range/Units 05:09 05:09 05:09 WBC 3.6 L (3.8-10.6) k/uL RBC 3.39 L (4.30-5.90) m/uL Hgb 9.5 L (13.0-17.5) gm/dL Hct 31.8 L (39.0-53.0) % MCHC 29.9 L (31.0-37.0) g/dL RDW 18.9 H (11.5-15.5) % Plt Count 113 L (150-450) k/uL Lymphocytes # 0.8 L (1.0-4.8) k/uL INR 1.3 H (<1.2) APTT 58.1 H (22.0-30.0) sec Chloride 95 L (98-107) mmol/L Carbon Dioxide 35 H (22-30) mmol/L BUN 40 H (9-20) mg/dL Creatinine 1.26 H (0.66-1.25) mg/dL Assessment and Plan Assessment: #1 acute kidney injury secondary to cardiorenal syndrome. Creatinine improving close to baseline. #2 CHF with systolic dysfunction. #3 hypervolemia with edema #4 hypokalemia secondary to diuretics #5 hyperphosphatemia Plan: #1 continue with Lasix for diuresis change it to 40 mg IV twice a day with a plan off torsemide 40 mg orally daily at discharge #2. Strict ins and outs #3 avoid nephrotoxic agents and hypotensive episodes. #4 replace electrolytes maintain potassium more than 4 and magnesium more than 2.
[2018-03-27] MEDS: PANTOPRAZOLE 40 MG TABLET PO SCH (09:29)
[2018-03-27] MEDS: ALLOPURINOL 100 MG TAB PO SCH (09:29)
[2018-03-27] MEDS: MIDODRINE 5 MG TAB PO SCH ×3 (09:29→17:05)
[2018-03-27] MEDS: MAGNESIUM OXIDE 400 MG TAB PO SCH (09:30)
[2018-03-27] MEDS: DOCUSATE 100 MG CAP PO SCH ×2 (09:31→21:36)
[2018-03-27] MEDS ORDERED: THIAMINE 100 MG/ML 2 ML VIAL IM STA (10:07)
--- NOTE | 2018-03-27 11:02 | P.PN ---
Subjective Progress Note Date: 03/27/18 Principal diagnosis: Acute congestive cardiac failure secondary to systolic dysfunction and respiratory failure This 63-year-old gentleman was admitted to the hospital with anasarca, atrial fibrillation rapid ventricular rate and evidence of biventricular failure, acute secondary to systolic dysfunction. Patient has improved significantly he was hypotensive initially. The patient also had acute renal failure nonoliguric which has improved. The patient's Lasix is now down to 40 mg daily his edema is markedly decreased. The patient's general condition is improved his breathing is improved. The patient unfortunately still is in the ICU because there are no other beds available. He advised and encouraged to ambulate in the room. The patient tells me he has hallucinations, visual bases distorted faces with animal faces and humans etc. The patient does have a history of alcohol dependency and suspect these are alcoholic hallucinosis/ withdrawal. Has no symptoms of delirium. REVIEW OF SYSTEMS: Neuro: Denies any headaches dizziness. Psych: Denies any anxiety depression feels oriented but is having some visual hallucinations Cardiac: Denies chest pain and angina palpitations. Respiratory: Denies shortness of breath cough. GI: Denies nausea vomiting or abdominal pain. No diarrhea or constipation, no bowel movement yet. : Denies dysuria hematuria has an IDC Extremities: Denies pain still has edema but markedly improved Skin: Intact. Constitutional: No fever, chills. Objective - Vital Signs Vital signs: Vital Signs Temp 98.6 F 03/27/18 09:16 Pulse 95 03/27/18 09:16 Resp 17 03/27/18 09:16 BP 95/75 03/27/18 09:16 Pulse Ox 99 03/27/18 09:16 Intake & Output 03/26/18 03/27/18 03/27/18 18:59 06:59 18:59 Intake Total 500 240 Output Total 1125 2900 Balance -625 -2660 Weight 97.8 kg Intake: IV 240 .9 240 Intake, IV Titration 500 Amount Heparin Sod,Pork in 0.45% 500 NaCl 25,000 unit In 0.45 % NaCl 1 500ml.bag @ 10.5 UNITS/KG/HR 20 mls/hr IV .Q24H [facility] Rx#:[id number] Output: Urine 1125 2900 Other: Voiding Method Indwelling Catheter Indwelling Catheter PHYSICAL EXAMINATION: Cooperative, at present in no acute distress. HEENT: Neck supple. No JVD. Chest: Decreased airflow right base Cardiac: Normal S1-S2, irregularly irregular heart rate no gallops systolic murmur 2/6 at the apex. Abdomen: Soft bowel sounds present. Extremities: Bilateral lower leg edema significantly decreased no tenderness Neurologically: Awake, alert, oriented with well-coordinated movements. - Labs CBC & Chem 7: 03/27/18 05:09 03/27/18 05:09 Labs: Abnormal Lab Results - Last 24 Hours (Table) 03/27/18 03/27/18 03/27/18 Range/Units 05:09 05:09 05:09 WBC 3.6 L (3.8-10.6) k/uL RBC 3.39 L (4.30-5.90) m/uL Hgb 9.5 L (13.0-17.5) gm/dL Hct 31.8 L (39.0-53.0) % MCHC 29.9 L (31.0-37.0) g/dL RDW 18.9 H (11.5-15.5) % Plt Count 113 L (150-450) k/uL Lymphocytes # 0.8 L (1.0-4.8) k/uL INR 1.3 H (<1.2) APTT 58.1 H (22.0-30.0) sec Chloride 95 L (98-107) mmol/L Carbon Dioxide 35 H (22-30) mmol/L BUN 40 H (9-20) mg/dL Creatinine 1.26 H (0.66-1.25) mg/dL Assessment and Plan Assessment: ASSESSMENT: 1. Acute congestive cardiac failure time his systolic dysfunction. 2. Cardiac heart is improved. 3. Atrial fibrillation rapid ventricular rate controlled. 4. Acute kidney injury improving 5. History of alcohol dependency . 6. Visual hallucinations, probable symptoms of alcohol withdrawal with no delirium PLAN: Continue present medical regimen with now decreased IV Lasix onceaday.DiscontinueFoleycatheter.Placethepatientonphenobarb.Increasedphysicalac tivitypatient 's status discussed with patient and nursing staff
[2018-03-27] MEDS ORDERED: FUROSEMIDE 10 MG/ML 4 ML VIAL ONE (11:49)
[2018-03-27] MEDS ORDERED: THIAMINE 100 MG TAB PO SCH (12:00)
--- NOTE | 2018-03-27 12:57 | PN ---
PROGRESS NOTE Mr. Hodge is a 63-year-old male with history of cardiomyopathy who presented with symptoms of congestive heart failure. He is feeling better today. He has almost no edema on the left side with mild edema on the right side. He has a history of severe ischemic cardiomyopathy. He denies any chest pain or palpitation. He denies any dizziness. He denies any nausea. He had renal function abnormality that is stabilizing. He continues to be at this time on atenolol 25 mg twice a day, Lasix 40 mg IV daily, in addition to Coumadin. PHYSICAL EXAMINATION: Blood pressure 114/77 with a heart rate in the 90s. LUNGS: No wheezes. HEART: Irregular regular S1, S2. No S3. No rub appreciated. ABDOMEN: Soft, nontender. EXTREMITIES: +1 to 2 edema on the right side. Trace edema on the left side. LAB DATA: Lab data revealed a hemoglobin 9.5, BUN and creatinine 40 and 1.26, potassium 3.5. His INR is 1.3. IMPRESSION: 1. Congestive heart failure with severe cardiomyopathy, stabilizing. 2. Atrial fibrillation, anticoagulated. 3. Acute kidney injury, improving. RECOMMENDATION: Because of the severe cardiomyopathy, I will switch him from Tenormin to Toprol-XL. We will hold on adding an BERNARDA inhibitor at this time. Depending on his renal function, further adjustment of that can be done. In the meantime we will continue the rest of his medical regimen. BENNY / MIKE: [id number] /
[2018-03-27] MEDS: FUROSEMIDE 10 MG/ML 4 ML VIAL IV SCH (13:22)
--- NOTE | 2018-03-27 13:39 | P.PN ---
Subjective Progress Note Date: 03/27/18 This is a 63-year-old male patient was had a poor health condition due to his chronic alcoholism, who presented to the hospital few days back because of worsening shortness of breath, exertional dyspnea, orthopnea, progressive lower extremity edema and his symptoms were typical of congestion heart failure. Furthermore, the patient was confirmed to have heart failure and the echocardiogram showed severe cardiomyopathy with an ejection fraction of less than 20% and the patient was found to have moderate to severe mitral regurgitation and moderate degree of pulmonary hypertension. He had significant amount of tricuspid regurgitation in addition. He had global hypokinesis. His BNP level at time of admission was 3900. He is free of any chest pain. He was found to be in atrial fibrillation. This is a chronic problem. The patient was taking Coumadin on outpatient basis and his INR at time of admission was 1.6. Currently remains in atrial fibrillation and his rate is controlled with use of atenolol 50 mg by mouth twice a day. He is also on IV heparin and the Coumadin has been discontinued. He has significant lower extremity edema. He has developed an acute kidney injury related to ATN/ cardiorenal factors as the patient is being diuresis with Lasix 80 mg IV push every 12 hours and despite that amount of urine output has been limited. This patient a chance to the intensive care unit yesterday. Apparently he was having episodes of bradycardia. I limited the rhythm strips and the patient was having atrial fibrillation with low rate essentially the mid 40s. No evidence of any AV block's or third-degree AV block. During this time the patient was becoming symptomatic when he would also become briefly unresponsive and diaphoretic, a presyncope-like of picture. The patient would also get episodically hypoxemic. Limited amount of activity would make him drop his pulse ox of the mid 70s. He is currently placed on oxygen at 5 L to maintain a saturation above 90%. Nevertheless, as mentioned, even while trying to get up and sitting up in a sitting position the patient would desaturate easily and it' ll take him probably a minute or 2 to recover from his oxygen desaturation. As such she has very limited reserve. He continues to have edematous lower extremity edema. Denies having any chest pain. He has history of smoking has history of COPD. The chest x-ray was obtained yesterday showed evidence of a moderate-sized right-sided pleural effusion. On 03/24/2018, there has been considerable improvement the patient's condition compared to yesterday. Overall the patient has responded diuretics and his produced significant amount of urine output since yesterday. His home I status improved and is less short of breath. The patient has diuresed more than 2.5 L and this is improved significantly his pulmonary status. He continues to have lower extremity edema. On today's chest x-ray there was a right-sided pleural effusion. There is also also some markings on the yesterday. Nevertheless, inserting a small needle into the right hemithorax did not yield any significant return and based on that I aborted the procedure. I did not proceed with a thoracentesis. Very much likely the patient is improved significantly in terms of his pleural effusion in the volume status since yesterday. He remains in atrial fibrillation. He remains on IV heparin. INR today is at 1.6. PTT is therapeutic. No chest pain. No altered mentation. He was having some encephalopathy yesterday which seems to be much recovered on today's evaluation. No nausea. No vomiting. No chest pain. No other significant events overnight. Meanwhile, the patient's renal function remains stable with a creatinine of 2.3. The patient is on Lasix drip at 10 mg an hour. He is also on atenolol 25 mg by mouth twice a day. On 03/25/2008 and I'm seeing this patient for a follow-up. The patient continues to improve. The patient is now having any respiratory distress. Chest x-ray from today showing still persistent right lung opacity/effusion. Note that I attempted a thoracentesis yesterday and I was unable to drain the pleural fluid. Based on that, a CAT scan of the chest was ordered today without contrast and that showed right-sided pleural effusion along with compressive atelectasis involving the right middle and right lower lobe area. I think the fluid is essentially drainable. Nevertheless, based on ongoing improvement, I decided to proceed with diuretics specially the patient has noted excellent response to diuresis. The patient is currently on IV Lasix. The patient IV Lasix 40 mg every 8 hours. The neck fluid balance over the past 24 hours has been -6.1 L. There is marked improvement in lower extremity edema. Creatinine is down to 1.6. The patient's potassium level is down to 2.7 seconds diuresis and this needs to be replaced. Otherwise, creatinine is down from 2.3 down to 1.6. Rest of the blood work and electrodes are all within normal limits. Remains on IV heparin. PTT is therapeutic. On 03/26/2018, this patient continues to show signs of improvement. He has diabetes extensively. He has lost more than 10 kg of body weight. Lower extremity edema is improving. Chest x-ray also shows improvement in the size of the right-sided pleural effusion. Remains in atrial fibrillation. Rate is controlled. He is on IV heparin. PT/INR is subtherapeutic. He is receiving IV Lasix 40 mg IV push every 8 hours. He is also on atenolol 25 mg by mouth twice a day. No other complaint otherwise. No altered mentation. No chest pain. No nausea or vomiting. No diarrhea or abdominal pain. No other complaints otherwise. On 03/27/2018, Александр is doing extremely well. He has no specific complaints. He continues to diurese and his CHF is very well optimized for now. Lower extremity edema is improved considerably. No chest pain. He remains in atrial fibrillation with a subtherapeutic PT/INR. No nausea. No vomiting. No abdominal pain. Klein cath is in place that obviously needs to be pulled out. The follow-up chest x-ray from today shows further improvement in the right- sided pleural effusion. No other complaints otherwise for now Objective - Vital Signs Vital signs: Vital Signs Temp 98.6 F 03/27/18 09:16 Pulse 95 03/27/18 09:16 Resp 17 03/27/18 09:16 BP 95/75 03/27/18 09:16 Pulse Ox 99 03/27/18 09:16 Intake & Output 03/26/18 03/27/18 03/27/18 18:59 06:59 18:59 Intake Total 500 240 10 Output Total 1125 2900 475 Balance -673 -3677 -339 Weight 97.8 kg Intake: IV 240 10 .9 240 10 Intake, IV Titration 500 Amount Heparin Sod,Pork in 0.45% 500 NaCl 25,000 unit In 0.45 % NaCl 1 500ml.bag @ 10.5 UNITS/KG/HR 20 mls/hr IV .Q24H [facility] Rx#:[id number] Output: Urine 1125 2900 475 Other: Voiding Method Indwelling Catheter Indwelling Catheter Indwelling Catheter - Exam Gen. appearance the patient is a sitting up on a chair. Awake and alert and nonacute distress Head exam was generally normal. There was no scleral icterus or corneal arcus. Mucous membranes were moist. Neck was supple and with jugular venous distension, thyromegaly, or carotid bruits. Carotids were easily palpable bilaterally. There was no adenopathy. Lungs sounds are diminished vision the right lung base along with some minimal bibasilar crackles and dullness in the right lung basilar area Heart sounds are irregular, positive S1-S2 and there is an S3 gallop. Overall heart sounds are distant. No significant right ventricular heave or thrill. There is a systolic ejection murmur grade 3/6 heard along the left sternal border. Abdominal exam revealed normal bowel sounds. The abdomen was soft, non-tender, and without masses, organomegaly, or appreciable enlargement of the abdominal aorta. Extremities revealed +1 edema. There is no cyanosis or clubbing at this point. No open wounds or ulcerations. Neurologically the patient was awake and alert at a time of my evaluation he had no focal neurological deficit. Nevertheless I was told that the patient was on and off having episodes of confusion. Examination of the skin revealed no evidence of significant rashes, suspicious appearing nevi or other concerning lesions. - Labs CBC & Chem 7: 03/27/18 05:09 03/27/18 05:09 Labs: Abnormal Lab Results - Last 24 Hours (Table) 03/27/18 03/27/18 03/27/18 Range/Units 05:09 05:09 05:09 WBC 3.6 L (3.8-10.6) k/uL RBC 3.39 L (4.30-5.90) m/uL Hgb 9.5 L (13.0-17.5) gm/dL Hct 31.8 L (39.0-53.0) % MCHC 29.9 L (31.0-37.0) g/dL RDW 18.9 H (11.5-15.5) % Plt Count 113 L (150-450) k/uL Lymphocytes # 0.8 L (1.0-4.8) k/uL INR 1.3 H (<1.2) APTT 58.1 H (22.0-30.0) sec Chloride 95 L (98-107) mmol/L Carbon Dioxide 35 H (22-30) mmol/L BUN 40 H (9-20) mg/dL Creatinine 1.26 H (0.66-1.25) mg/dL Assessment and Plan Plan: Assessment 1 acute on chronic systolic heart failure with global hypokinesis and ejection fraction of 20%, consider ischemic versus nonischemic cardiomyopathy as the patient may have an underlying coronary artery disease. He has has no history of alcoholism. The patient clinically much improved and responded very nicely to diuretics. The patient is on Lasix 40 mg every 8 hours and he has been significant amount of negative fluid balance with improvement in the volume status and there is also improvement in the size of the right-sided pleural effusion. Currently is hemodynamically stable. He is on room air oxygen. Patient continues to improve. No new complaints from today. The Lasix dose will be kept on to 40 mg every 24 hours. Patient is also metoprolol 50 mg by mouth daily. 2 moderate severe mitral regurgitation 3 moderate to severe pulmonary hypertension secondary to left-sided heart failure and mitral valve disease 4 moderate-sized right-sided pleural effusion, the patient has responded nicely and pleural effusion size improved also. 5 chronic atrial fibrillation, rate is controlled. PT/INR is subtherapeutic. 6 acute on chronic hypoxic respiratory failure. 7 alcoholism 8 acute kidney injury, secondary to ATN and cardiio renal factors, and the patient had improvement 9 chronic normocytic anemia 10 chronic lower extremity edema, improving 11 hyponatremia secondary to cardiomyopathy/CHF, improved and recovered and sodium level is normalized 12 metabolic acidosis with a small anion gap, recovered and serum bicarbonate is normalized. 13 hyperkalemia, recovered and the patient is hypokalemic secondary to aggressive diuresis 14 episodes of bradycardia with a A. fib rhythm, symptomatic 15 prostate cancer Plan Continue IV Lasix for another 24 hours. He is a Lasix to once a day 40 mg every 24 hours. Monitor urine output. Monitor electrolytes. Give the patient Coumadin 10 mg and the patient has a subtherapeutic PT/INR. Continue metoprolol. The Klein catheter. We'll continue to follow.
[2018-03-27] MEDS ORDERED: PHENobarbital 64.8 MG TAB PO ONE ×2 (14:00→18:00)
[2018-03-27] MEDS ORDERED: Potassium Replacement Protocol 1 EACH MISC MISCELLANE PRN (15:44)
[2018-03-27] MEDS ORDERED: POTASSIUM CHLORIDE ER 20 MEQ TAB.ER PO SCH (16:00)
[2018-03-27] MEDS: FUROSEMIDE 250 MG in SODIUM CHLORIDE 0.9% 225 ML IVP SCH (16:55)
[2018-03-27] MEDS: WARFARIN 10 MG TAB PO SCH (17:04)
[2018-03-27] MEDS: HEPARIN SOD,PORK IN 0.45% NACL 25,000 UNIT in 0.45% NACL 1 500ML.BAG IV SCH (17:05)
[2018-03-27] MEDS: THIAMINE 100 MG TAB PO SCH (17:05)
[2018-03-27] MEDS: METOPROLOL SUCCINATE (ER) 50 MG TAB.ER.24H PO SCH (17:38)
[2018-03-27] MEDS: SODIUM CHLORIDE 0.9% 1,000 ML IV SCH (17:45)
[2018-03-27] MEDS ORDERED: FUROSEMIDE 10 MG/ML 4 ML VIAL IV SCH (21:00)
[2018-03-27] MEDS: CYCLOBENZAPRINE 10 MG TAB PO SCH (21:36)
[2018-03-27] MEDS: SENNOSIDES 8.6 MG TAB PO SCH (21:37)
[2018-03-27] MEDS ORDERED: POTASSIUM CHLORIDE ER 20 MEQ TAB.ER PO STA (22:53)
[2018-03-28 05:20] LABS: Anisocytosis Slight; Basophils % (A) 0 %; Eosinophils # (A) 0.1 k/uL (0-0.7); Eosinophils % (A) 1 %; HCT 32.7 % (39.0-53.0); HGB 9.8 gm/dL (13.0-17.5); Hypochromasia Marked; Lymphocytes % (A) 21 %; MCV 93.3 fL (80.0-100.0); Mean Platelet Volume 8.2; Monocytes # (A) 0.6 k/uL (0-1.0); Monocytes % (A) 13 %; Neutrophils # (A) 2.9 k/uL (1.3-7.7); Neutrophils % (A) 61 %; Platelet Count 141 k/uL (150-450); Poikilocytosis Slight; RBC 3.51 m/uL (4.30-5.90); RDW 18.7 % (11.5-15.5); WBC 4.8 k/uL (3.8-10.6)
[2018-03-28 05:57] LABS: Calcium 9.1 mg/dL (8.4-10.2); Magnesium 1.9 mg/dL (1.6-2.3); Phosphorus 3.5 mg/dL (2.5-4.5); Potassium 4.5 mmol/L (3.5-5.1)
[2018-03-28 06:20] LABS: INR 1.5 (<1.2); Partial Thromboplastin Time 57.8 sec (22.0-30.0); Prothrombin Time 13.9 sec (9.0-12.0)
[2018-03-28] MEDS: ALLOPURINOL 100 MG TAB PO SCH (08:16)
[2018-03-28] MEDS: MAGNESIUM OXIDE 400 MG TAB PO SCH (08:16)
[2018-03-28] MEDS: PANTOPRAZOLE 40 MG TABLET PO SCH (08:16)
[2018-03-28] MEDS: MIDODRINE 5 MG TAB PO SCH ×3 (08:17→17:36)
[2018-03-28] MEDS: SODIUM CHLORIDE 0.9% 1,000 ML IV SCH (08:54)
[2018-03-28] MEDS: DOCUSATE 100 MG CAP PO SCH ×2 (08:54→21:48)
[2018-03-28] MEDS ORDERED: FUROSEMIDE 10 MG/ML 4 ML VIAL IV SCH (09:00)
--- NOTE | 2018-03-28 09:39 | CDI ---
Last Revision, April 2017 Documentation Clarification Form 2nd Request Date: 03/24/2018 2:25:00 PM From: Beti Ramos RN, CCDS Admit Date: 03/22/2018 9:48:00 AM Patient Name: Александр Hodge Visit Number: [id number] ATTENTION: The Clinical Documentation Specialists (CDI) and [facility] Coding Staff appreciate your assistance in clarifying documentation. Please respond to the clarification below the line at the bottom and electronically sign. The CDI & [facility] Coding staff will review the response and follow-up if needed. Please note: Queries are made part of the Legal Health Record. If you have any questions, please contact the author of this message via ITS. Nevin Ambrocio MD In your documentation, the diagnosis of chronic normocytic anemia lacks specificity to accurately reflect your patients severity of condition and clarification is needed. History/Risk Factors: Acute systolic chf, dilated cardiomyopathy, atrial Fib, CKD, ROCK w ATN Clinical indicators: Hemoglobin: 9.9/9.5/9.1 Hematocrit:32.8/32.2/29.6 Treatment: 0.9% NS @ 20 cc/hr In order to capture the severity of condition, please clarify the type of anemia and etiology if known: Chronic blood loss anemia Iron deficiency anemia Hemolytic anemia Drug induced anemia Nutritional anemia Anemia of chronic kidney disease Anemia of chronic disease (please specify) Unable to determine Other, please specify Please continue to document in your progress notes and discharge summary in order to capture severity of illness and risk of mortality. Include clinical findings that support your diagnosis. anemia of chronic disease (CHF) MTDD
--- NOTE | 2018-03-28 09:39 | P.PN ---
Subjective Patient is seen in follow-up for acute kidney injury. Patient's creatinine in May 2014 was 0.97. This admission cr was 1.3 and peaked at 2.33 03/24 - 1.38 today. Patient presented with atrial fibrillation with RVR. His heart rate is now controlled. Patient has systolic CHF with ejection fraction of less than 20% with moderate to severe mitral regurgitation. Status post Lasix drip. Currently on Lasix 40 mg IV once daily. Remains nonoliguric. Edema improved. Vital signs are stable. General: The patient appeared well nourished and normally developed. HEENT: Head exam is unremarkable. Neck is without jugular venous distension. LUNGS: Lungs are clear to auscultation and percussion. Breath sounds decreased. HEART: Rate and Rhythm are regular. First and second heart sounds normal. No murmurs, rubs or gallops. ABDOMEN: Abdominal exam reveals normal bowel sounds. Non-tender and non- distended. No evidence of peritonitis. EXTREMITITES: 1+ edema. Objective - Vital Signs Vital signs: Vital Signs Temp 97.6 F 03/28/18 08:00 Pulse 80 03/28/18 08:00 Resp 14 03/28/18 08:00 BP 101/74 03/28/18 08:00 Pulse Ox 98 03/28/18 08:00 Intake & Output 03/27/18 03/28/18 03/28/18 18:59 06:59 18:59 Intake Total 490 250 260 Output Total 975 700 100 Balance -485 -450 160 Weight 97.8 kg 102 kg Intake: IV 10 20 .9 10 20 Intake, IV Titration 480 Amount Heparin Sod,Pork in 0.45% 480 NaCl 25,000 unit In 0.45 % NaCl 1 500ml.bag @ 10.5 UNITS/KG/HR 20 mls/hr IV .Q24H [facility] Rx#:[id number] Oral 250 240 Output: Urine 975 700 100 Other: Voiding Method Urinal Urinal Urinal - Labs CBC & Chem 7: 03/28/18 04:29 03/28/18 04:29 Labs: Abnormal Lab Results - Last 24 Hours (Table) 03/28/18 03/28/18 03/28/18 Range/Units 04:29 04:29 05:35 RBC 3.51 L (4.30-5.90) m/uL Hgb 9.8 L (13.0-17.5) gm/dL Hct 32.7 L (39.0-53.0) % MCHC 30.0 L (31.0-37.0) g/dL RDW 18.7 H (11.5-15.5) % Plt Count 141 L (150-450) k/uL PT 13.9 H (9.0-12.0) sec INR 1.5 H (<1.2) APTT 57.8 H (22.0-30.0) sec Chloride 97 L (98-107) mmol/L Carbon Dioxide 31 H (22-30) mmol/L BUN 44 H (9-20) mg/dL Creatinine 1.38 H (0.66-1.25) mg/dL Glucose 106 H (74-99) mg/dL Assessment and Plan Plan: Assessment: 1. Acute kidney injury secondary to ATN secondary to cardiorenal syndrome. Creatinine peaked at 2.33 this admission and is down to 1.38 today. Trace proteinuria on UA. No evidence of hydronephrosis. 2. Hyperkalemia secondary to acute kidney injury. Resolved. Now hypokalemic from diuresis. Improved post replacement. 3. Hypervolemic hyponatremia. Better. 4. Volume overload. Improving. 5. Systolic CHF with ejection fraction of less than 20% with moderate to severe mitral regurgitation. 6. Metabolic acidosis secondary to acute kidney injury. Resolved.7. Hyperphosphatemia secondary to acute kidney injury. Better with improved urine output. Plan: Discontinue IV Lasix. Start Demadex 20 mg once daily. Maintain midodrine 10 mg 3 times daily. 1500 mL fluid restriction. Low-salt diet. Continue to monitor renal function and urine output. Daily weights. Strict I's and O's.
--- NOTE | 2018-03-28 10:18 | PN ---
PROGRESS NOTE Mr. Hodge is a 63-year-old male with known history of severe cardiomyopathy, chronic persistent atrial fibrillation, who presented with symptoms of progressive dyspnea and evidence of congestive heart failure. He is feeling better today. He continues to have peripheral edema on the right side. His left side has much improved. He is denying any symptoms of chest discomfort. He denies any dizziness, palpitation. He denies any nausea. Hemodynamically, he has been stable. He was switched to metoprolol succinate yesterday. He continues to be at this time on Lasix 40 mg IV daily, metoprolol succinate 50 mg daily, midodrine, Coumadin. PHYSICAL EXAMINATION: Blood pressure 104/70 with a heart rate in 70s. Lungs with a few crackles at the bases. HEART: Irregularly, irregular. S1, S2. No S3 with a holosystolic murmur. No diastolic murmur. ABDOMEN: Soft, nontender, obese. EXTREMITIES: +1 to 2 edema on the right side. Trace to 1+ on the left side. LAB DATA: BUN and creatinine are 44 and 1.38, potassium of 4.5. INR of 1.5, hemoglobin of 9.8. IMPRESSION: 1. Congestive heart failure with known history of cardiomyopathy. 2. History of atrial fibrillation, persistent, rate controlled. 3. Chronic kidney disease, improved. 4. Chronic alcohol intake. RECOMMENDATION: Will continue present therapy. Continue to follow his blood pressure. If his blood pressure stabilizes, then depending on the renal function, either add an BERNARDA inhibitor or consider hydralazine because of his cardiomyopathy. Continue to increase his level of activity. Continue the diuresis and follow his renal function. Will increase his level of activity as tolerated. MMODL / IJN: [id number] /
[2018-03-28] MEDS: METOPROLOL SUCCINATE (ER) 50 MG TAB.ER.24H PO SCH (10:26)
[2018-03-28] MEDS: TORSEMIDE 20 MG TAB PO SCH (10:36)
[2018-03-28] MEDS: PHENobarbital 32.4 MG TAB PO SCH ×6 (10:48→22:37)
[2018-03-28] MEDS: HEPARIN SOD,PORK IN 0.45% NACL 25,000 UNIT in 0.45% NACL 1 500ML.BAG IV SCH ×2 (10:53→21:49)
--- NOTE | 2018-03-28 11:16 | P.PN ---
Subjective Progress Note Date: 03/28/18 Principal diagnosis: Acute on chronic systolic congestive heart failure This is a 63-year-old male patient was had a poor health condition due to his chronic alcoholism, who presented to the hospital few days back because of worsening shortness of breath, exertional dyspnea, orthopnea, progressive lower extremity edema and his symptoms were typical of congestion heart failure. Furthermore, the patient was confirmed to have heart failure and the echocardiogram showed severe cardiomyopathy with an ejection fraction of less than 20% and the patient was found to have moderate to severe mitral regurgitation and moderate degree of pulmonary hypertension. He had significant amount of tricuspid regurgitation in addition. He had global hypokinesis. His BNP level at time of admission was 3900. He is free of any chest pain. He was found to be in atrial fibrillation. This is a chronic problem. The patient was taking Coumadin on outpatient basis and his INR at time of admission was 1.6. Currently remains in atrial fibrillation and his rate is controlled with use of atenolol 50 mg by mouth twice a day. He is also on IV heparin and the Coumadin has been discontinued. He has significant lower extremity edema. He has developed an acute kidney injury related to ATN/ cardiorenal factors as the patient is being diuresis with Lasix 80 mg IV push every 12 hours and despite that amount of urine output has been limited. Reevaluated today on 03/28/2018, patient is doing well, relatively asymptomatic , his congestive heart failure is improving with diuresis, patient has what looks like a chronic systolic congestive heart failure, cardiorenal syndrome, remains in atrial fibrillation, rate seems to be controlled, denies any nausea vomiting abdominal pain, x-ray continues to show steady improvement in his overall fluid status and congestive heart failure. Labs were reviewed, WBC count is 4.8 hemoglobin is 9.8 electrolytes are relatively normal BUN is 44 creatinine is 1.38. INR is 1.5 PTT is 57.8. Patient was switched from IV Lasix to oral Demadex today by nephrology. Objective - Vital Signs Vital signs: Vital Signs Temp 97.6 F 03/28/18 08:00 Pulse 80 03/28/18 08:00 Resp 14 03/28/18 08:00 BP 101/74 03/28/18 08:00 Pulse Ox 98 03/28/18 08:00 Intake & Output 03/27/18 03/28/18 03/28/18 18:59 06:59 18:59 Intake Total 490 250 616 Output Total 975 700 100 Balance -485 -450 516 Weight 97.8 kg 102 kg Intake: IV 10 20 .9 10 20 Intake, IV Titration 480 356 Amount Heparin Sod,Pork in 0.45% 480 356 NaCl 25,000 unit In 0.45 % NaCl 1 500ml.bag @ 10.5 UNITS/KG/HR 20 mls/hr IV .Q24H [facility] Rx#:[id number] Oral 250 240 Output: Urine 975 700 100 Other: Voiding Method Urinal Urinal Urinal - Exam Physical Exam: Revealed a 63-year-old white male, in no distress, sitting on a chair at bedside. Head: Atraumatic, normocephalic. HEENT:[Neck is supple.] [No neck masses.] [No thyromegaly.] [No JVD.] PERRLA, EOMI. Chest: Diminished breath sounds at the bases, no crackles or rhonchi or wheezes. ] Cardiac Exam: [Irregular irregular rhythm, Normal S1 and S2, no S3 gallop, 3/6 systolic murmur throughout the precordium. Abdomen: [Soft, nontender, no megaly, no rebound, no guarding, normal bowel sounds.] Extremities: [No clubbing, 1+ bipedal edema, no cyanosis.] Neurological Exam: [No focal neurologic deficit. Lymphatics: No lymphadenopathy. Psychiatric: Normal mood, affect and mental status examination. Skin: No rashes.] - Labs CBC & Chem 7: 03/28/18 04:29 03/28/18 04:29 Labs: Abnormal Lab Results - Last 24 Hours (Table) 03/28/18 03/28/18 03/28/18 Range/Units 04:29 04:29 05:35 RBC 3.51 L (4.30-5.90) m/uL Hgb 9.8 L (13.0-17.5) gm/dL Hct 32.7 L (39.0-53.0) % MCHC 30.0 L (31.0-37.0) g/dL RDW 18.7 H (11.5-15.5) % Plt Count 141 L (150-450) k/uL PT 13.9 H (9.0-12.0) sec INR 1.5 H (<1.2) APTT 57.8 H (22.0-30.0) sec Chloride 97 L (98-107) mmol/L Carbon Dioxide 31 H (22-30) mmol/L BUN 44 H (9-20) mg/dL Creatinine 1.38 H (0.66-1.25) mg/dL Glucose 106 H (74-99) mg/dL Assessment and Plan Assessment: Impression: 1 acute on chronic systolic congestive heart failure with severe LV dysfunction , ejection fraction of 20%. Possible underlying ischemic versus nonischemic cardiomyopathy. Continues to improve with diuretics, patient will be switched to oral Demadex. 2 acute cardiorenal syndrome 3 moderate severe mitral regurgitation and secondary pulmonary hypertension/ severe. 4 right-sided pleural effusion secondary to congestive heart failure, improving with diuretics. 5 chronic atrial fibrillation, remains on heparin and Coumadin. 6 acute on chronic hypoxic respiratory failure 7 history of alcoholism 8 acute kidney injury, likely cardiorenal syndrome. 9 anemia of chronic disease, related to his renal failure and liver disease. 10 history of prostate cancer. Recommendation: Continue oral Demadex, continue to monitor urine output, continue Coumadin and was therapeutic discontinue heparin continue metoprolol, consider transferring the patient out of the ICU today to a monitor bed. Discussed the patient's condition with the simulation educator on the case. We both agree on switching the patient from IV Lasix to oral diuretics. Time with Patient: Less than 30
[2018-03-28] MEDS: THIAMINE 100 MG TAB PO SCH ×2 (13:39→16:38)
[2018-03-28] MEDS: traMADol 50 MG TAB PO PRN (15:15)
[2018-03-28] MEDS: WARFARIN 10 MG TAB PO SCH (17:50)
[2018-03-28] MEDS: SENNOSIDES 8.6 MG TAB PO SCH (21:48)
[2018-03-28] MEDS: CYCLOBENZAPRINE 10 MG TAB PO SCH (21:48)
--- NOTE | 2018-03-28 22:30 | PN ---
PROGRESS NOTE ATTENDING PHYSICIAN: Dr. Eugene Brito. CHIEF COMPLAINT: Re-evaluation. HISTORY OF PRESENT ILLNESS: 63-year-old gentleman was admitted to the hospital with basically cardiogenic shock with hypotension, tachycardia and low cardiac output status with generalized anasarca. The patient had associated acute renal failure. He is doing better. His kidneys opened up and he has been diuresing very well. The patient's breathing is markedly improved. His anasarca is improved. He still has some significant swelling in the right leg compared to the left leg. The both legs are swollen with edema about the knee. The patient has had no further hallucinations. He has history of alcohol dependency. Denies any chest pain. He has atrial fibrillation, rate control. REVIEW OF SYSTEMS: Neuro: Denies any headaches, dizziness. Psych no anxiety. No hallucinations. Cardiac: No chest pain. No chest pain, angina, palpitations. Respiratory: No shortness of breath, cough. GI no nausea, vomiting, abdominal pain, diarrhea. no symptoms of dysuria or hematuria. Extremities: Edema. Constitutional: No fever, chills. PHYSICAL EXAMINATION: Pleasant gentleman at present in no distress. VITAL SIGNS: Temperature 97.6, pulse 80, respirations 14, blood pressure 101/74. I's and O's revealed negative balance of about 3000. HEENT: Normocephalic. NECK: Supple. No JVD. CHEST: Clear to auscultation with decreased air flow at the right base. CARDIAC: Normal S1, S2 with no gallops. Systolic murmur 2/6 left sternal border. ABDOMEN: Soft. Bowel sounds present. EXTREMITIES: Revealed edema 3+ at least both lower extremities. NEUROLOGIC: Awake, alert, oriented with well-coordinated movements. LABORATORY ASSESSMENT: White count 4.8, hemoglobin 9.8, platelets 141, up from 113. Sodium 137, potassium 4.5, chloride 97, CO2 content 31, down from 35, BUN 44, creatinine 1.38, glucose 106, INR 1.5. ASSESSMENT: 1. Acute congestive cardiac failure secondary to systolic dysfunction, improved. 2. Atrial fibrillation. 3. Acute renal failure, improved. 4. History of alcohol dependency. 5. Chronic degenerative joint disease and chronic arthritic symptoms of lumbosacral spine. 6. Hallucinations, probably alcohol withdrawal syndrome. 7. Anemia with no evidence of acute blood loss. 8. Thrombocytopenia, improving. PLAN: 1. Continue present medical regimen. Patient's condition discussed with the patient. Prognosis is guarded. The patient can be transferred to [facility], remote telemetry and the patient will be started ambulating. 2. The patient's current condition discussed with the patient. 3. Prognosis guarded. 4. Eugene Brito thank you. BENNY / MIKE: [id number] /
[2018-03-28] MEDS ORDERED: SODIUM CHLORIDE 0.9% 1,000 ML IV SCH (23:15)
[2018-03-28] MEDS: ALPRAZolam 0.5 MG TAB PO PRN (23:36)
[2018-03-29 02:19] LABS: Appearance,Urine Clear (Clear); Bilirubin,Urine Negative (Negative); Blood,Urine Small (Negative); Color,Urine Yellow; Glucose,Urine (UA) Negative (Negative); Hyaline Casts,Urine 3 /lpf (0-2); Ketones,Urine Negative (Negative); Leukocyte Esterase,Urine Negative (Negative); Mucus,Urine Rare /hpf; Nitrite,Urine Negative (Negative); Protein,Urine Trace (Negative); RBC,Urine 9 /hpf (0-5); Specific Gravity,Urine 1.013 (1.001-1.035); Squamous Epithelial Cell,Urine <1 /hpf (0-4); Urobilinogen,Urine <2.0 mg/dL (<2.0); WBC,Urine 6 /hpf (0-5)
[2018-03-29 03:41] LABS: Anisocytosis Slight; Basophils % (A) 1 %; Eosinophils # (A) 0.1 k/uL (0-0.7); Eosinophils % (A) 2 %; HGB 9.3 gm/dL (13.0-17.5); Hypochromasia Marked; Lymphocytes # (A) 0.9 k/uL (1.0-4.8); Lymphocytes % (A) 19 %; MCH 27.7 pg (25.0-35.0); MCHC 29.9 g/dL (31.0-37.0); MCV 92.8 fL (80.0-100.0); Mean Platelet Volume 9.2; Monocytes # (A) 0.5 k/uL (0-1.0); Monocytes % (A) 10 %; Neutrophils % (A) 66 %; Platelet Count 125 k/uL (150-450); RBC 3.34 m/uL (4.30-5.90); RDW 18.9 % (11.5-15.5); WBC 4.5 k/uL (3.8-10.6)
[2018-03-29 04:11] LABS: Magnesium 1.8 mg/dL (1.6-2.3); Phosphorus 4.4 mg/dL (2.5-4.5); Potassium 4.7 mmol/L (3.5-5.1)
[2018-03-29] MEDS: SODIUM CHLORIDE 0.9% 1,000 ML IV SCH (07:36)
[2018-03-29] MEDS: PHENobarbital 32.4 MG TAB PO SCH ×6 (07:44→20:59)
[2018-03-29] MEDS: METOPROLOL SUCCINATE (ER) 50 MG TAB.ER.24H PO SCH (07:44)
[2018-03-29] MEDS: DOCUSATE 100 MG CAP PO SCH ×3 (07:44→20:59)
[2018-03-29] MEDS: PANTOPRAZOLE 40 MG TABLET PO SCH (07:44)
[2018-03-29] MEDS: MIDODRINE 5 MG TAB PO SCH ×3 (07:44→17:04)
[2018-03-29] MEDS: ALLOPURINOL 100 MG TAB PO SCH (07:44)
[2018-03-29] MEDS: MAGNESIUM OXIDE 400 MG TAB PO SCH (07:44)
[2018-03-29] MEDS: TORSEMIDE 20 MG TAB PO SCH (07:45)
[2018-03-29 08:39] LABS: INR 1.8 (<1.2); Prothrombin Time 16.2 sec (9.0-12.0)
--- NOTE | 2018-03-29 09:46 | P.PN ---
Subjective Patient is seen in follow-up for acute kidney injury. Patient's creatinine in May 2014 was 0.97. This admission cr was 1.3 and peaked at 2.33 03/24 - 1.76 today. Patient presented with atrial fibrillation with RVR. His heart rate is now controlled. Patient has systolic CHF with ejection fraction of less than 20% with moderate to severe mitral regurgitation. Status post Lasix drip. Currently on Demadex 20 mg once daily. Remains nonoliguric. Still admits to lower extremity edema. Last night urine output was low and he was started on normal saline at 50 mL an hour. No evidence of urinary retention. Vital signs are stable. General: The patient appeared well nourished and normally developed. HEENT: Head exam is unremarkable. Neck is without jugular venous distension. LUNGS: Lungs are clear to auscultation and percussion. Breath sounds decreased. HEART: Rate and Rhythm are regular. First and second heart sounds normal. No murmurs, rubs or gallops. ABDOMEN: Abdominal exam reveals normal bowel sounds. Non-tender and non- distended. No evidence of peritonitis. EXTREMITITES: 1+ edema. Objective - Vital Signs Vital signs: Vital Signs Temp 97.4 F L 03/29/18 07:00 Pulse 89 03/29/18 07:00 Resp 16 03/29/18 07:00 BP 113/62 03/29/18 07:00 Pulse Ox 95 03/29/18 07:00 Intake & Output 03/28/18 03/29/18 03/29/18 18:59 06:59 18:59 Intake Total 852 1428.667 Output Total 100 305 50 Balance 752 1123.667 -50 Intake: IV 20 460 .9 20 260 Heparin Sod,Pork in 0.45% 200 NaCl 25,000 unit In 0.45 % NaCl 1 500ml.bag @ 10.5 UNITS/KG/HR 20 mls/hr IV .Q24H [facility] Rx#:[id number] Intake, IV Titration 356 288.667 Amount Heparin Sod,Pork in 0.45% 356 218.667 NaCl 25,000 unit In 0.45 % NaCl 1 500ml.bag @ 10.5 UNITS/KG/HR 20 mls/hr IV .Q24H [facility] Rx#:[id number] Sodium Chloride 0.9% 1, 20 000 ml @ 20 mls/hr IV . Q24H [facility] Rx#:[id number] Sodium Chloride 0.9% 1, 50 000 ml @ 50 mls/hr IV . Q20H [facility] Rx#:[id number] Oral [id number] Output: Urine 100 305 50 Other: Voiding Method Urinal Urinal # Voids 1 # Bowel Movements 0 - Labs CBC & Chem 7: 03/29/18 03:29 03/29/18 03:29 Labs: Abnormal Lab Results - Last 24 Hours (Table) 03/29/18 03/29/18 03/29/18 Range/Units 01:30 03:29 03:29 RBC 3.34 L (4.30-5.90) m/uL Hgb 9.3 L (13.0-17.5) gm/dL Hct 31.0 L (39.0-53.0) % MCHC 29.9 L (31.0-37.0) g/dL RDW 18.9 H (11.5-15.5) % Plt Count 125 L (150-450) k/uL Lymphocytes # 0.9 L (1.0-4.8) k/uL PT (9.0-12.0) sec INR (<1.2) APTT (22.0-30.0) sec Sodium 136 L (137-145) mmol/L BUN 49 H (9-20) mg/dL Creatinine 1.76 H (0.66-1.25) mg/dL Glucose 103 H (74-99) mg/dL Urine Protein Trace H (Negative) Urine Blood Small H (Negative) Urine RBC 9 H (0-5) /hpf Urine WBC 6 H (0-5) /hpf Hyaline Casts 3 H (0-2) /lpf Urine Mucus Rare H (None) /hpf 03/29/18 03/29/18 Range/Units 03:29 07:10 RBC (4.30-5.90) m/uL Hgb (13.0-17.5) gm/dL Hct (39.0-53.0) % MCHC (31.0-37.0) g/dL RDW (11.5-15.5) % Plt Count (150-450) k/uL Lymphocytes # (1.0-4.8) k/uL PT 16.2 H (9.0-12.0) sec INR 1.8 H (<1.2) APTT 58.5 H (22.0-30.0) sec Sodium (137-145) mmol/L BUN (9-20) mg/dL Creatinine (0.66-1.25) mg/dL Glucose (74-99) mg/dL Urine Protein (Negative) Urine Blood (Negative) Urine RBC (0-5) /hpf Urine WBC (0-5) /hpf Hyaline Casts (0-2) /lpf Urine Mucus (None) /hpf Assessment and Plan Plan: Assessment: 1. Acute kidney injury secondary to ATN secondary to cardiorenal syndrome. Creatinine peaked at 2.33 this admission and came down to 1.38 on March 28 - 1.76 today which is due to diuresis . Trace proteinuria on UA. No evidence of hydronephrosis. 2. Hyperkalemia secondary to acute kidney injury. Resolved. Then became hypokalemic from diuresis. Improved post replacement. 3. Hypervolemic hyponatremia. Improved from admission. 4. Volume overload. Improving. 5. Systolic CHF with ejection fraction of less than 20% with moderate to severe mitral regurgitation. 6. Metabolic acidosis secondary to acute kidney injury. Resolved. 7. Hyperphosphatemia secondary to acute kidney injury. Improved. Plan: Stop Demadex. Lasix 40 mg IV once this afternoon. Hep-Lock IV fluids. Maintain midodrine 10 mg 3 times daily. 1500 mL fluid restriction. Low-salt diet. Continue to monitor renal function and urine output. Daily weights. Strict I's and O's. Continue to monitor for urinary retention.
[2018-03-29] MEDS: THIAMINE 100 MG TAB PO SCH ×2 (11:16→17:04)
--- NOTE | 2018-03-29 11:41 | P.PN ---
Subjective Progress Note Date: 03/29/18 Principal diagnosis: Acute on chronic systolic congestive heart failure This is a 63-year-old male patient was had a poor health condition due to his chronic alcoholism, who presented to the hospital few days back because of worsening shortness of breath, exertional dyspnea, orthopnea, progressive lower extremity edema and his symptoms were typical of congestion heart failure. Furthermore, the patient was confirmed to have heart failure and the echocardiogram showed severe cardiomyopathy with an ejection fraction of less than 20% and the patient was found to have moderate to severe mitral regurgitation and moderate degree of pulmonary hypertension. He had significant amount of tricuspid regurgitation in addition. He had global hypokinesis. His BNP level at time of admission was 3900. He is free of any chest pain. He was found to be in atrial fibrillation. This is a chronic problem. The patient was taking Coumadin on outpatient basis and his INR at time of admission was 1.6. Currently remains in atrial fibrillation and his rate is controlled with use of atenolol 50 mg by mouth twice a day. He is also on IV heparin and the Coumadin has been discontinued. He has significant lower extremity edema. He has developed an acute kidney injury related to ATN/ cardiorenal factors as the patient is being diuresis with Lasix 80 mg IV push every 12 hours and despite that amount of urine output has been limited. Reevaluated today on 03/28/2018, patient is doing well, relatively asymptomatic , his congestive heart failure is improving with diuresis, patient has what looks like a chronic systolic congestive heart failure, cardiorenal syndrome, remains in atrial fibrillation, rate seems to be controlled, denies any nausea vomiting abdominal pain, x-ray continues to show steady improvement in his overall fluid status and congestive heart failure. Labs were reviewed, WBC count is 4.8 hemoglobin is 9.8 electrolytes are relatively normal BUN is 44 creatinine is 1.38. INR is 1.5 PTT is 57.8. Patient was switched from IV Lasix to oral Demadex today by nephrology. On 03/02/2018 patient seen in follow-up on medical surgical floor. Resting comfortably in bed, denies any distress, room air pulse ox is 95%, afebrile, patient remains in A. fib, with a controlled rate. Complains of shortness of breath or chest pain. She continues on IV heparin, he is on Coumadin 10 mg daily, his INR today is 1.8. He was given a dose of IV Lasix today per nephrology. His labs have been reviewed, the PVCs 4.5, hemoglobin is 9.3, sodium is 136, and the rest of electrolytes are within normal limits, slight worsening of his renal profile, BUN is 49 creatinine is 1.76. Lung sounds are essentially clear to auscultation, no rhonchi or wheezes or rales noted. Patient is nonoliguric, still has residual lower extremity edema, right greater than the left leg. Objective - Vital Signs Vital signs: Vital Signs Temp 97.4 F L 03/29/18 07:00 Pulse 89 03/29/18 07:00 Resp 16 03/29/18 07:00 BP 113/62 03/29/18 07:00 Pulse Ox 95 03/29/18 07:00 Intake & Output 03/28/18 03/29/18 03/29/18 18:59 06:59 18:59 Intake Total 852 1428.667 Output Total 100 305 50 Balance 752 1123.667 -50 Intake: IV 20 460 .9 20 260 Heparin Sod,Pork in 0.45% 200 NaCl 25,000 unit In 0.45 % NaCl 1 500ml.bag @ 10.5 UNITS/KG/HR 20 mls/hr IV .Q24H [facility] Rx#:[id number] Intake, IV Titration 356 288.667 Amount Heparin Sod,Pork in 0.45% 356 218.667 NaCl 25,000 unit In 0.45 % NaCl 1 500ml.bag @ 10.5 UNITS/KG/HR 20 mls/hr IV .Q24H [facility] Rx#:[id number] Sodium Chloride 0.9% 1, 20 000 ml @ 20 mls/hr IV . Q24H [facility] Rx#:[id number] Sodium Chloride 0.9% 1, 50 000 ml @ 50 mls/hr IV . Q20H [facility] Rx#:[id number] Oral [id number] Output: Urine 100 305 50 Other: Voiding Method Urinal Urinal # Voids 1 # Bowel Movements 0 - Exam Physical Exam: Revealed a 63-year-old white male, in no distress, sitting on a chair at bedside. Head: Atraumatic, normocephalic. HEENT:[Neck is supple.] [No neck masses.] [No thyromegaly.] [No JVD.] PERRLA, EOMI. Chest: Diminished breath sounds at the bases, no crackles or rhonchi or wheezes. ] Cardiac Exam: [Irregular irregular rhythm, Normal S1 and S2, no S3 gallop, 3/6 systolic murmur throughout the precordium. Abdomen: [Soft, nontender, no megaly, no rebound, no guarding, normal bowel sounds.] Extremities: [No clubbing, 1+ bipedal edema, no cyanosis.] Neurological Exam: [No focal neurologic deficit. Lymphatics: No lymphadenopathy. Psychiatric: Normal mood, affect and mental status examination. Skin: No rashes.] - Labs CBC & Chem 7: 03/29/18 03:29 03/29/18 03:29 Labs: Abnormal Lab Results - Last 24 Hours (Table) 03/29/18 03/29/18 03/29/18 Range/Units 01:30 03:29 03:29 RBC 3.34 L (4.30-5.90) m/uL Hgb 9.3 L (13.0-17.5) gm/dL Hct 31.0 L (39.0-53.0) % MCHC 29.9 L (31.0-37.0) g/dL RDW 18.9 H (11.5-15.5) % Plt Count 125 L (150-450) k/uL Lymphocytes # 0.9 L (1.0-4.8) k/uL PT (9.0-12.0) sec INR (<1.2) APTT (22.0-30.0) sec Sodium 136 L (137-145) mmol/L BUN 49 H (9-20) mg/dL Creatinine 1.76 H (0.66-1.25) mg/dL Glucose 103 H (74-99) mg/dL Urine Protein Trace H (Negative) Urine Blood Small H (Negative) Urine RBC 9 H (0-5) /hpf Urine WBC 6 H (0-5) /hpf Hyaline Casts 3 H (0-2) /lpf Urine Mucus Rare H (None) /hpf 03/29/18 03/29/18 Range/Units 03:29 07:10 RBC (4.30-5.90) m/uL Hgb (13.0-17.5) gm/dL Hct (39.0-53.0) % MCHC (31.0-37.0) g/dL RDW (11.5-15.5) % Plt Count (150-450) k/uL Lymphocytes # (1.0-4.8) k/uL PT 16.2 H (9.0-12.0) sec INR 1.8 H (<1.2) APTT 58.5 H (22.0-30.0) sec Sodium (137-145) mmol/L BUN (9-20) mg/dL Creatinine (0.66-1.25) mg/dL Glucose (74-99) mg/dL Urine Protein (Negative) Urine Blood (Negative) Urine RBC (0-5) /hpf Urine WBC (0-5) /hpf Hyaline Casts (0-2) /lpf Urine Mucus (None) /hpf Assessment and Plan Plan: 1 acute on chronic systolic congestive heart failure with severe LV dysfunction , ejection fraction of 20%. Possible underlying ischemic versus nonischemic cardiomyopathy. Continues to improve with diuretics, patient will be switched to oral Demadex. 2 acute cardiorenal syndrome 3 moderate severe mitral regurgitation and secondary pulmonary hypertension/ severe. 4 right-sided pleural effusion secondary to congestive heart failure, improving with diuretics. 5 chronic atrial fibrillation, remains on heparin and Coumadin. 6 acute on chronic hypoxic respiratory failure 7 history of alcoholism 8 acute kidney injury, likely cardiorenal syndrome. 9 anemia of chronic disease, related to his renal failure and liver disease. 10 history of prostate cancer. Recommendation: Continue current medical treatment, Demadex is on hold, but patient was given a dose of IV Lasix per nephrology. No acute events overnight, remains in A. fib with a controlled rate, today's INR is 1.8, continues on heparin drip. No complaints of shortness of breath or chest pain. Continue daily weights, and accurate I&O's. Daily labs for evaluation of renal profile and electrolyte panel I performed a history & physical examination of the patient and discussed their management with my nurse practitioner, Carmita Tolliver. I reviewed the nurse practitioner's note and agree with the documented findings and plan of care. Lung sounds are clear. The findings and the impression was discussed with the patient. I attest to the documentation by the nurse practitioner. Time with Patient: Less than 30
--- NOTE | 2018-03-29 13:03 | P.PN ---
Subjective Mr. Hodge is seen and examined sitting up in the chair. Past medical history significant for chronic persistent atrial fibrillation on retirement anticoagulation with coudmadin, prostate cancer and hypertension. He is being followed closely on this admission for acute systolic heart failure with global hypokinesia and cardiomyopathy believed to be non-ischemic with severely dilated LA. He also has a history of chronic regular alcohol use and former nicotine dependence. His diuretics were transitioned to PO per nephrology yesterday and then changed back to IV this afternoon. He continues to have significant lower extremity edema worse on the right. He denies chest pain, shortness of breath, dizziness or palpitations. He continues to be in atrial fibrillation with controlled ventricular response. He continues to be on heparin gtt while getting him therapeutic on coumadin. Coumadin dose 10 mg daily with INR today of 1.8. Hgb 9.3 plt 128, sodium 136, potassium 4.7, creatinine 1.76, magnesium 1.8. Blood pressure 113/62 heart rate 89 afebrile maintaining oxygen saturation on room air. GENERAL: Well-appearing, well-nourished and in no acute distress. NECK: Supple without JVD or thyromegaly. LUNGS: Breath sounds clear to auscultation bilaterally. Respiration equal and unlabored. No wheezes, rales or rhonchi. Diminished bilaterally. HEART: Irregular rate and rhythm with holosystolic murmurs, no rubs or gallops. S1 and S2 heard. EXTREMITIES: Bilateral lower extremity edema, right greater than left. 2+ pitting on the right and 1+ pitting on the left. No clubbing or cyanosis. Peripheral pulses intact. ASSESSMENT Acute systolic heart failure Chronic persistent atrial fibrillation, rate controlled Chronic kidney disease Chronic alcohol intake PLAN Continue current medical regimen. Follow renal function and electrolytes daily. Repeat coagulation studies tomorrow, hopefully can discontinue heparin infusion within the next 24 hours. Increase activity as tolerated. We will continue to follow and make recommendations accordingly. Nurse Practitioner note has been reviewed, I agree with a documented findings and plan of care. Patient was seen and examined. Objective - Vital Signs Vital signs: Vital Signs Temp 97.4 F L 03/29/18 07:00 Pulse 89 03/29/18 07:00 Resp 16 03/29/18 07:00 BP 113/62 03/29/18 07:00 Pulse Ox 95 03/29/18 07:00 Intake & Output 03/28/18 03/29/18 03/29/18 18:59 06:59 18:59 Intake Total 852 1428.667 Output Total 100 305 50 Balance 752 1123.667 -50 Intake: IV 20 460 .9 20 260 Heparin Sod,Pork in 0.45% 200 NaCl 25,000 unit In 0.45 % NaCl 1 500ml.bag @ 10.5 UNITS/KG/HR 20 mls/hr IV .Q24H [facility] Rx#:[id number] Intake, IV Titration 356 288.667 Amount Heparin Sod,Pork in 0.45% 356 218.667 NaCl 25,000 unit In 0.45 % NaCl 1 500ml.bag @ 10.5 UNITS/KG/HR 20 mls/hr IV .Q24H [facility] Rx#:[id number] Sodium Chloride 0.9% 1, 20 000 ml @ 20 mls/hr IV . Q24H [facility] Rx#:[id number] Sodium Chloride 0.9% 1, 50 000 ml @ 50 mls/hr IV . Q20H [facility] Rx#:[id number] Oral [id number] Output: Urine 100 305 50 Other: Voiding Method Urinal Urinal # Voids 1 # Bowel Movements 0 - Labs CBC & Chem 7: 03/29/18 03:29 03/29/18 03:29 Labs: Abnormal Lab Results - Last 24 Hours (Table) 03/29/18 03/29/18 03/29/18 Range/Units 01:30 03:29 03:29 RBC 3.34 L (4.30-5.90) m/uL Hgb 9.3 L (13.0-17.5) gm/dL Hct 31.0 L (39.0-53.0) % MCHC 29.9 L (31.0-37.0) g/dL RDW 18.9 H (11.5-15.5) % Plt Count 125 L (150-450) k/uL Lymphocytes # 0.9 L (1.0-4.8) k/uL PT (9.0-12.0) sec INR (<1.2) APTT (22.0-30.0) sec Sodium 136 L (137-145) mmol/L BUN 49 H (9-20) mg/dL Creatinine 1.76 H (0.66-1.25) mg/dL Glucose 103 H (74-99) mg/dL Urine Protein Trace H (Negative) Urine Blood Small H (Negative) Urine RBC 9 H (0-5) /hpf Urine WBC 6 H (0-5) /hpf Hyaline Casts 3 H (0-2) /lpf Urine Mucus Rare H (None) /hpf 03/29/18 03/29/18 Range/Units 03:29 07:10 RBC (4.30-5.90) m/uL Hgb (13.0-17.5) gm/dL Hct (39.0-53.0) % MCHC (31.0-37.0) g/dL RDW (11.5-15.5) % Plt Count (150-450) k/uL Lymphocytes # (1.0-4.8) k/uL PT 16.2 H (9.0-12.0) sec INR 1.8 H (<1.2) APTT 58.5 H (22.0-30.0) sec Sodium (137-145) mmol/L BUN (9-20) mg/dL Creatinine (0.66-1.25) mg/dL Glucose (74-99) mg/dL Urine Protein (Negative) Urine Blood (Negative) Urine RBC (0-5) /hpf Urine WBC (0-5) /hpf Hyaline Casts (0-2) /lpf Urine Mucus (None) /hpf
[2018-03-29] MEDS ORDERED: FUROSEMIDE 10 MG/ML 4 ML VIAL IV ONE (16:00)
[2018-03-29] MEDS: traMADol 50 MG TAB PO PRN (17:03)
[2018-03-29] MEDS: WARFARIN 10 MG TAB PO SCH (17:04)
[2018-03-29] MEDS: SENNOSIDES 8.6 MG TAB PO SCH (20:59)
[2018-03-29] MEDS: CYCLOBENZAPRINE 10 MG TAB PO SCH (20:59)
[2018-03-29] MEDS: HEPARIN SOD,PORK IN 0.45% NACL 25,000 UNIT in 0.45% NACL 1 500ML.BAG IV SCH (21:39)
--- NOTE | 2018-03-29 23:37 | PN ---
PROGRESS NOTE ATTENDING PHYSICIAN: Dr. Eugene Brito. CHIEF COMPLAINT: Re-evaluation. HISTORY OF PRESENT ILLNESS: This is a 63-year-old gentleman who was admitted to the hospital with congestive cardiac failure. He is feeling improved. The patient was reported to have some confusion last night per nursing. However, the patient denies any symptoms. He also had some low urine output and the patient was placed on some IV fluids with improvement. He is feeling much better today this morning. He continues to have significant edema lower legs. Otherwise, breathing is improved. REVIEW OF SYSTEMS: Neuro denies any headaches or dizziness. Psych no anxiety. Denies hallucinations. Cardiac: Denies chest pain, angina, palpitations. Respiratory: Denies shortness of breath, cough, hemoptysis. GI no nausea, vomiting, abdominal pain, diarrhea. : No symptoms of dysuria or hematuria. Extremities: Denies pain or edema. Constitutional: No fever, chills. PHYSICAL EXAMINATION: Temperature 97.4, pulse 89, respirations 16, blood pressure 113/62, pulse ox 95% on room air. Is and Os revealed negative balance of 573. LABORATORY EVALUATION: INR was 1.8, hemoglobin stable at 9.3, platelets 125, BUN up to 49, creatinine up to 1.76. ASSESSMENT: 1. Congestive cardiac failure. 2. Dilated cardiomyopathy. 3. Acute kidney injury with progressive azotemia. 4. Anemia. 5. History of alcohol dependency. PLAN: The patient is stable. Continue present medical regimen. The patient has been evaluated by Nephrology and decided to discontinue the Demadex and the patient will be given Lasix 1 dose only today. Reassess patient's labs tomorrow. Patient's condition discussed with the patient. Prognosis guarded. MMODL / IJN: [id number] /
--- NOTE | 2018-03-30 07:46 | XR ---
EXAMINATION TYPE: XR chest 1V portable DATE OF EXAM: 03/30/2018 HISTORY: Shortness of breath. COMPARISON: 03/27/2018 TECHNIQUE: Single view of the chest is submitted. FINDINGS: Demonstrated are scattered senescent parenchymal change. Persistent right lower lobe infiltrate and pleural effusion. The heart is stable. Hilar and mediastinal structures are within normal limits. Degenerative changes are seen of the dorsal spine. IMPRESSION: 1. Stable chest
[2018-03-30] MEDS: PHENobarbital 32.4 MG TAB PO SCH ×2 (08:35→08:42)
[2018-03-30] MEDS: SODIUM CHLORIDE 0.9% 1,000 ML IV SCH (08:38)
[2018-03-30] MEDS: MIDODRINE 5 MG TAB PO SCH ×3 (08:42→18:04)
[2018-03-30] MEDS: MAGNESIUM OXIDE 400 MG TAB PO SCH (08:42)
[2018-03-30] MEDS: ALLOPURINOL 100 MG TAB PO SCH (08:42)
[2018-03-30] MEDS: PANTOPRAZOLE 40 MG TABLET PO SCH (08:42)
[2018-03-30] MEDS: METOPROLOL SUCCINATE (ER) 50 MG TAB.ER.24H PO SCH (08:43)
[2018-03-30 09:40] LABS: Anisocytosis Slight; Basophils % (A) 0 %; Eosinophils # (A) 0.1 k/uL (0-0.7); Eosinophils % (A) 1 %; HCT 30.9 % (39.0-53.0); HGB 9.3 gm/dL (13.0-17.5); Hypochromasia Marked; Lymphocytes # (A) 0.7 k/uL (1.0-4.8); Lymphocytes % (A) 12 %; MCH 27.7 pg (25.0-35.0); MCHC 30.1 g/dL (31.0-37.0); Mean Platelet Volume 8.5; Monocytes # (A) 0.4 k/uL (0-1.0); Monocytes % (A) 7 %; Neutrophils # (A) 4.4 k/uL (1.3-7.7); Neutrophils % (A) 79 %; Platelet Count 170 k/uL (150-450); Poikilocytosis Slight; RBC 3.36 m/uL (4.30-5.90); RDW 19.2 % (11.5-15.5); WBC 5.6 k/uL (3.8-10.6)
[2018-03-30 09:50] LABS: INR 2.3 (<1.2); Partial Thromboplastin Time 50.9 sec (22.0-30.0)
--- NOTE | 2018-03-30 09:53 | P.PN ---
Subjective Patient is seen in follow-up for acute kidney injury. Patient's creatinine in May 2014 was 0.97. This admission cr was 1.3 and peaked at 2.33 03/24 - 1.76 as of yesterday. Patient presented with atrial fibrillation with RVR. His heart rate is now controlled. Patient has systolic CHF with ejection fraction of less than 20% with moderate to severe mitral regurgitation. Status post Lasix drip. Received IV lasix yesterday. Remains nonoliguric. Still admits to lower extremity edema. Yesterday he was noted to have urinary retention with bladder scan revealing over 500 mL of urine in a Klein catheter was placed. Vital signs are stable. General: The patient appeared well nourished and normally developed. HEENT: Head exam is unremarkable. Neck is without jugular venous distension. LUNGS: Lungs are clear to auscultation and percussion. Breath sounds decreased. HEART: Rate and Rhythm are regular. First and second heart sounds normal. No murmurs, rubs or gallops. ABDOMEN: Abdominal exam reveals normal bowel sounds. Non-tender and non- distended. No evidence of peritonitis. EXTREMITITES: 1+ edema. Objective - Vital Signs Vital signs: Vital Signs Temp 98.2 F 03/30/18 08:30 Pulse 86 03/30/18 08:30 Resp 16 03/30/18 08:30 BP 103/72 03/30/18 08:30 Pulse Ox 86 L 03/30/18 08:30 Intake & Output 03/29/18 03/30/18 03/30/18 18:59 06:59 18:59 Intake Total 1596.667 Output Total 375 1375 Balance -375 221.667 Intake: Intake, IV Titration 596.667 Amount Heparin Sod,Pork in 0.45% 476.667 NaCl 25,000 unit In 0.45 % NaCl 1 500ml.bag @ 10.5 UNITS/KG/HR 20 mls/hr IV .Q24H [facility] Rx#:[id number] Sodium Chloride 0.9% 1, 120 000 ml @ 20 mls/hr IV . Q24H [facility] Rx#:[id number] Oral 1000 Output: Urine 375 1375 Uretheral (Klein) 1375 Other: Voiding Method Urinal Indwelling Catheter Indwelling Catheter - Labs CBC & Chem 7: 03/30/18 09:00 03/29/18 03:29 Labs: Abnormal Lab Results - Last 24 Hours (Table) 03/30/18 Range/Units 09:00 RBC 3.36 L (4.30-5.90) m/uL Hgb 9.3 L (13.0-17.5) gm/dL Hct 30.9 L (39.0-53.0) % MCHC 30.1 L (31.0-37.0) g/dL RDW 19.2 H (11.5-15.5) % Lymphocytes # 0.7 L (1.0-4.8) k/uL Assessment and Plan Plan: Assessment: 1. Acute kidney injury secondary to ATN secondary to cardiorenal syndrome. Creatinine peaked at 2.33 this admission and came down to 1.38 on March 28 - 1.76 as of yesterday which is partially related to urinary retention. Trace proteinuria on UA. No evidence of hydronephrosis. 2. Hyperkalemia secondary to acute kidney injury. Resolved. Then became hypokalemic from diuresis. Improved post replacement. 3. Hypervolemic hyponatremia. Improved from admission. 4. Volume overload. Improving. 5. Systolic CHF with ejection fraction of less than 20% with moderate to severe mitral regurgitation. 6. Metabolic acidosis secondary to acute kidney injury. Resolved. 7. Hyperphosphatemia secondary to acute kidney injury. Improved. 8. Urinary retention status post Klein catheter placement. Plan: Start Lasix 40 mg IV daily. Maintain midodrine 10 mg 3 times daily. 1500 mL fluid restriction. Low-salt diet. Continue to monitor renal function and urine output. Daily weights. Strict I's and O's. Add Flomax. Repeat electrolytes in the morning.
[2018-03-30 10:17] LABS: Calcium 9.1 mg/dL (8.4-10.2); Magnesium 2.1 mg/dL (1.6-2.3); Phosphorus 3.9 mg/dL (2.5-4.5); Potassium 3.9 mmol/L (3.5-5.1)
[2018-03-30] MEDS: DOCUSATE 100 MG CAP PO SCH ×2 (10:18→20:47)
[2018-03-30] MEDS ORDERED: POTASSIUM CHLORIDE ER 20 MEQ TAB.ER PO STA ×2 (12:07→17:23)
[2018-03-30 13:28] VITALS: BMI 33.2
[2018-03-30] MEDS: THIAMINE 100 MG TAB PO SCH ×2 (13:51→18:04)
[2018-03-30] MEDS: TAMSULOSIN 0.4 MG CAP.ER.24H PO SCH (13:51)
[2018-03-30] MEDS: FUROSEMIDE 10 MG/ML 4 ML VIAL IV SCH (13:51)
--- NOTE | 2018-03-30 15:11 | CONS ---
CONSULTATION Mr. Hodge is a 63-year-old gentleman who was admitted to hospital with acute systolic heart failure and nonischemic cardiomyopathy. He has chronic atrial fibrillation and is currently anticoagulated. Heart rate is well controlled. His leg edema which is more on the right side than on the left side has improved and is improving. PHYSICAL EXAMINATION: He is comfortable at rest. Afebrile. Heart rate is 90 beats per minute. Blood pressure is , respiratory rate is 16, O2 sat is 86% on room air. There is no jugular venous distention. Chest exam reveals diminished air entry at the bases. Heart exam reveals first and second heart sounds, irregular rhythm. Abdomen is soft. Exam of extremities reveals bilateral pitting edema, more on the right side than on the left side. LABS: Show an INR of 2.3. Creatinine is 1.6, hemoglobin is 9.3. ASSESSMENT: 1. Acute onset systolic heart failure. 2. Chronic atrial fibrillation. PLAN: I will continue current medications including IV Lasix. Hopefully home tomorrow. BENNY / SHELLIN: [id number] /
--- NOTE | 2018-03-30 15:37 | P.PN ---
Subjective Progress Note Date: 03/30/18 Principal diagnosis: Acute on chronic systolic congestive heart failure This is a 63-year-old male patient was had a poor health condition due to his chronic alcoholism, who presented to the hospital few days back because of worsening shortness of breath, exertional dyspnea, orthopnea, progressive lower extremity edema and his symptoms were typical of congestion heart failure. Furthermore, the patient was confirmed to have heart failure and the echocardiogram showed severe cardiomyopathy with an ejection fraction of less than 20% and the patient was found to have moderate to severe mitral regurgitation and moderate degree of pulmonary hypertension. He had significant amount of tricuspid regurgitation in addition. He had global hypokinesis. His BNP level at time of admission was 3900. He is free of any chest pain. He was found to be in atrial fibrillation. This is a chronic problem. The patient was taking Coumadin on outpatient basis and his INR at time of admission was 1.6. Currently remains in atrial fibrillation and his rate is controlled with use of atenolol 50 mg by mouth twice a day. He is also on IV heparin and the Coumadin has been discontinued. He has significant lower extremity edema. He has developed an acute kidney injury related to ATN/ cardiorenal factors as the patient is being diuresis with Lasix 80 mg IV push every 12 hours and despite that amount of urine output has been limited. Reevaluated today on 03/28/2018, patient is doing well, relatively asymptomatic , his congestive heart failure is improving with diuresis, patient has what looks like a chronic systolic congestive heart failure, cardiorenal syndrome, remains in atrial fibrillation, rate seems to be controlled, denies any nausea vomiting abdominal pain, x-ray continues to show steady improvement in his overall fluid status and congestive heart failure. Labs were reviewed, WBC count is 4.8 hemoglobin is 9.8 electrolytes are relatively normal BUN is 44 creatinine is 1.38. INR is 1.5 PTT is 57.8. Patient was switched from IV Lasix to oral Demadex today by nephrology. On 03/02/2018 patient seen in follow-up on medical surgical floor. Resting comfortably in bed, denies any distress, room air pulse ox is 95%, afebrile, patient remains in A. fib, with a controlled rate. Complains of shortness of breath or chest pain. She continues on IV heparin, he is on Coumadin 10 mg daily, his INR today is 1.8. He was given a dose of IV Lasix today per nephrology. His labs have been reviewed, the PVCs 4.5, hemoglobin is 9.3, sodium is 136, and the rest of electrolytes are within normal limits, slight worsening of his renal profile, BUN is 49 creatinine is 1.76. Lung sounds are essentially clear to auscultation, no rhonchi or wheezes or rales noted. Patient is nonoliguric, still has residual lower extremity edema, right greater than the left leg. On 03/30/2018 patient seen again in follow-up in medical surgical floor. States he is feeling more fatigued today, but denies any worsening dyspnea, not on any supplemental oxygen. Patient is afebrile, hemodynamically stable. These labs have been reviewed, WBC is 5.6, hemoglobin is 9.3, INR is 2.3, electrolytes are within normal limits, renal profile slightly improved, BUN is 46 and creatinine is 1.69. Nephrology is following, patient's Lasix is being dosed by nephrology, patient received a dose of Lasix today. Patient is nonoliguric, today's chest x-ray was reviewed and showed persistent right lower lobe infiltrate and pleural effusion. INR today is 2.3, patient's heparin drip has been discontinued. Objective - Vital Signs Vital signs: Vital Signs Temp 98.2 F 03/30/18 08:30 Pulse 86 03/30/18 08:30 Resp 16 03/30/18 08:30 BP 103/72 03/30/18 08:30 Pulse Ox 86 L 03/30/18 08:30 Intake & Output 03/29/18 03/30/18 03/30/18 18:59 06:59 18:59 Intake Total 1596.667 253 Output Total 375 1375 Balance -375 221.667 253 Weight 102 kg Intake: Intake, IV Titration 596.667 253 Amount Heparin Sod,Pork in 0.45% 476.667 253 NaCl 25,000 unit In 0.45 % NaCl 1 500ml.bag @ 10.5 UNITS/KG/HR 20 mls/hr IV .Q24H [facility] Rx#:[id number] Sodium Chloride 0.9% 1, 120 000 ml @ 20 mls/hr IV . Q24H [facility] Rx#:[id number] Oral 1000 Output: Urine 375 1375 Uretheral (Klein) 1375 Other: Voiding Method Urinal Indwelling Catheter Indwelling Catheter - Exam Physical Exam: Revealed a 63-year-old white male, in no distress, sitting on a chair at bedside. Head: Atraumatic, normocephalic. HEENT:[Neck is supple.] [No neck masses.] [No thyromegaly.] [No JVD.] PERRLA, EOMI. Chest: Diminished breath sounds at the bases, no crackles or rhonchi or wheezes. ] Cardiac Exam: [Irregular irregular rhythm, Normal S1 and S2, no S3 gallop, 3/6 systolic murmur throughout the precordium. Abdomen: [Soft, nontender, no megaly, no rebound, no guarding, normal bowel sounds.] Extremities: [No clubbing, 1+ bipedal edema, no cyanosis.] Neurological Exam: [No focal neurologic deficit. Lymphatics: No lymphadenopathy. Psychiatric: Normal mood, affect and mental status examination. Skin: No rashes.] - Labs CBC & Chem 7: 03/30/18 09:00 03/30/18 09:00 Labs: Abnormal Lab Results - Last 24 Hours (Table) 03/30/18 03/30/18 03/30/18 Range/Units 09:00 09:00 09:00 RBC 3.36 L (4.30-5.90) m/uL Hgb 9.3 L (13.0-17.5) gm/dL Hct 30.9 L (39.0-53.0) % MCHC 30.1 L (31.0-37.0) g/dL RDW 19.2 H (11.5-15.5) % Lymphocytes # 0.7 L (1.0-4.8) k/uL PT 21.0 H (9.0-12.0) sec INR 2.3 H (<1.2) APTT 50.9 H (22.0-30.0) sec BUN 46 H (9-20) mg/dL Creatinine 1.69 H (0.66-1.25) mg/dL Glucose 131 H (74-99) mg/dL Assessment and Plan Plan: 1 acute on chronic systolic congestive heart failure with severe LV dysfunction , ejection fraction of 20%. Possible underlying ischemic versus nonischemic cardiomyopathy. 2 acute cardiorenal syndrome 3 moderate severe mitral regurgitation and secondary pulmonary hypertension/ severe. 4 right-sided pleural effusion secondary to congestive heart failure, improving with diuretics. 5 chronic atrial fibrillation, remains on heparin and Coumadin. 6 acute on chronic hypoxic respiratory failure 7 history of alcoholism 8 acute kidney injury, likely cardiorenal syndrome. 9 anemia of chronic disease, related to his renal failure and liver disease. 10 history of prostate cancer. Recommendation: We'll continue current medical treatment, IV diuretics are being dosed by nephrology, patient did receive another dose of IV Lasix today. Remains on room air, denies any worsening dyspnea, no chest pain. Has some bilateral lower extremity edema. Today's chest x-ray has been reviewed, and showed stable findings, with right lower lobe infiltrate, and pleural effusion. We'll continue with medical treatment, there was a previous attempt to drain the right -sided pleural effusion, was unsuccessful. The patient is asymptomatic, will follow-up on outpatient basis. No plans for thoracentesis at this time. From pulmonary perspective patient remains stable, and considered for discharge home in the next 24 hours, I performed a history & physical examination of the patient and discussed their management with my nurse practitioner, Carmita Tolliver. I reviewed the nurse practitioner's note and agree with the documented findings and plan of care. Lung sounds are clear. The findings and the impression was discussed with the patient. I attest to the documentation by the nurse practitioner. Time with Patient: Less than 30
[2018-03-30] MEDS ORDERED: WARFARIN 3 MG TAB PO SCH (18:00)
[2018-03-30] MEDS: traMADol 50 MG TAB PO PRN (18:06)
[2018-03-30] MEDS: SENNOSIDES 8.6 MG TAB PO SCH (20:47)
[2018-03-30] MEDS: CYCLOBENZAPRINE 10 MG TAB PO SCH (20:49)
--- NOTE | 2018-03-30 23:35 | PN ---
PROGRESS NOTE ATTENDING PHYSICIAN: Dr. Eugene Brito. CHIEF COMPLAINT: Re-evaluation. HISTORY OF PRESENT ILLNESS: A 63-year-old gentleman was admitted to the hospital with acute congestive cardiac failure, hypotension related to cardiogenic shock and atrial fibrillation. The patient has an ejection fraction of about 20% with global hypokinesia. The etiology is suspected alcohol. The patient has had alcohol dependency. He also exhibited some visual hallucinations suggestive of alcohol withdrawal. The patient had a significant anasarca. He has also had associated ATN due to hypotension. The patient's ATN has this improved with diuresis, patient's renal function worsened again and was given some IV fluids and then subsequently now is on fluid restrictions and diuretics on a daily basis. The patient had problems with voiding last night and had a Klein catheter placed. He had about 570 mL of urine retaining. He is not happy with the Klein catheter this morning, however, explain to him that the reason to have the catheter in is to get the bladder tone back. The patient's breathing has improved. Denies any shortness of breath, PND, orthopnea. Denies any cough. REVIEW OF SYSTEMS: Neuro: Denies any headaches, dizziness. Psych: No hallucinations. CARDIAC: Denies chest pain, angina, palpitations. The patient does have chronic atrial fibrillation. RESPIRATORY: Denies shortness of breath, cough, hemoptysis. GI no nausea, vomiting, abdominal pain, did a bowel movement : Incontinence. EXTREMITIES: Denies pain. Does have edema. Constitutional: No fever, chills. PHYSICAL EXAMINATION: Pleasant gentleman at present in no distress. Vital signs: Temperature 98.2, pulse 86, respirations 16, blood pressure 103/72, pulse ox 86 percent on room air. Repeat was 100% on room air. HEENT: Normocephalic. Neck no JVD. CHEST EXAMINATION: Decreased air flow right base, otherwise clear. Cardiac distant heart sounds S1, S2 with no gallop. Systolic murmur 2/6 left sternal border. ABDOMEN: Soft. Bowel sounds normal. Extremities reveal edema. Right leg looked more than the left. Edema all the way to the knee area. Neurologically: Awake, alert, oriented with well-coordinated movements. LABORATORY ASSESSMENT: INR 2.3. Hemoglobin is stable 9.3, platelets up to 170. Sodium 139, potassium 3.9, BUN 46, creatinine down 1.69. Urinalysis is unremarkable. ASSESSMENT: 1. Acute congestive cardiac failure secondary to systolic dysfunction improved. 2. Dilated cardiomyopathy. 3. Alcohol withdrawal hallucinations. 4. Acute on chronic renal failure. 5. Chronic kidney disease stage 3. 6. Chronic atrial fibrillation. PLAN: Continue present medical regimen. The patient has been followed by Nephrology as well. The plan is to continue the Klein catheter and Lasix as per the Nephrology order. The patient's condition is discussed with the patient. Prognosis guarded. Potential discharge home tomorrow. MMODL / IJN: [id number] /
[2018-03-31] MEDS: ALPRAZolam 0.5 MG TAB PO PRN (00:59)
[2018-03-31 07:28] VITALS: RESP 16
[2018-03-31 07:40] LABS: Anisocytosis Slight; Basophils % (A) 0 %; Eosinophils # (A) 0.1 k/uL (0-0.7); Eosinophils % (A) 2 %; HGB 8.9 gm/dL (13.0-17.5); Hypochromasia Marked; Lymphocytes # (A) 0.7 k/uL (1.0-4.8); Lymphocytes % (A) 15 %; MCH 28.3 pg (25.0-35.0); MCHC 30.7 g/dL (31.0-37.0); Mean Platelet Volume 8.7; Monocytes # (A) 0.4 k/uL (0-1.0); Monocytes % (A) 9 %; Neutrophils # (A) 3.4 k/uL (1.3-7.7); Neutrophils % (A) 72 %; Platelet Count 150 k/uL (150-450); Poikilocytosis Slight; RBC 3.15 m/uL (4.30-5.90); RDW 18.9 % (11.5-15.5); WBC 4.8 k/uL (3.8-10.6)
[2018-03-31 07:45] LABS: INR 2.3 (<1.2); Prothrombin Time 20.8 sec (9.0-12.0)
[2018-03-31 08:05] LABS: Calcium 9.2 mg/dL (8.4-10.2); Magnesium 2.1 mg/dL (1.6-2.3); Phosphorus 3.9 mg/dL (2.5-4.5); Potassium 4.5 mmol/L (3.5-5.1)
[2018-03-31] MEDS: FUROSEMIDE 10 MG/ML 4 ML VIAL IV SCH (08:37)
[2018-03-31] MEDS: TAMSULOSIN 0.4 MG CAP.ER.24H PO SCH (08:39)
[2018-03-31] MEDS: METOPROLOL SUCCINATE (ER) 50 MG TAB.ER.24H PO SCH (08:39)
[2018-03-31] MEDS: ALLOPURINOL 100 MG TAB PO SCH (08:40)
[2018-03-31] MEDS: MAGNESIUM OXIDE 400 MG TAB PO SCH (08:40)
[2018-03-31] MEDS: DOCUSATE 100 MG CAP PO SCH (08:40)
[2018-03-31] MEDS: MIDODRINE 5 MG TAB PO SCH ×2 (08:40→12:02)
[2018-03-31] MEDS: PANTOPRAZOLE 40 MG TABLET PO SCH (08:40)
[2018-03-31] MEDS: SODIUM CHLORIDE 0.9% 1,000 ML IV SCH (09:57)
[2018-03-31] MEDS: THIAMINE 100 MG TAB PO SCH (12:02)
--- NOTE | 2018-03-31 12:05 | P.PN ---
Subjective Patient is seen in follow-up for acute kidney injury. Patient's creatinine in May 2014 was 0.97. This admission cr was 1.3 and peaked at 2.33 03/24 - 1.48 today. Patient presented with atrial fibrillation with RVR. His heart rate is now controlled. Patient has systolic CHF with ejection fraction of less than 20% with moderate to severe mitral regurgitation. Status post Lasix drip. Maintained on lasix 40 mg iv daily. Remains nonoliguric. Still admits to lower extremity edema. Klein catheter removed this AM. He has been voiding on his own. Vital signs are stable. General: The patient appeared well nourished and normally developed. HEENT: Head exam is unremarkable. Neck is without jugular venous distension. LUNGS: Lungs are clear to auscultation and percussion. Breath sounds decreased. HEART: Rate and Rhythm are regular. First and second heart sounds normal. No murmurs, rubs or gallops. ABDOMEN: Abdominal exam reveals normal bowel sounds. Non-tender and non- distended. No evidence of peritonitis. EXTREMITITES: 1+ edema. Objective - Vital Signs Vital signs: Vital Signs Temp 98.9 F 03/31/18 08:22 Pulse 109 H 03/31/18 08:22 Resp 16 03/31/18 07:24 BP 102/69 03/31/18 07:24 Pulse Ox 95 03/31/18 08:22 Intake & Output 03/30/18 03/31/18 03/31/18 18:59 06:59 18:59 Intake Total 253 430 Output Total 700 1100 Balance -447 -1100 430 Weight 102 kg 101.5 kg Intake: Intake, IV Titration 253 Amount Heparin Sod,Pork in 0.45% 253 NaCl 25,000 unit In 0.45 % NaCl 1 500ml.bag @ 10.5 UNITS/KG/HR 20 mls/hr IV .Q24H [facility] Rx#:[id number] Oral 430 Output: Urine 700 1100 Uretheral (Klein) 625 Other: Voiding Method Indwelling Catheter Indwelling Catheter Indwelling Catheter # Voids 1 - Labs CBC & Chem 7: 03/31/18 07:11 03/31/18 07:11 Labs: Abnormal Lab Results - Last 24 Hours (Table) 03/31/18 03/31/18 03/31/18 Range/Units 07:11 07:11 07:11 RBC 3.15 L (4.30-5.90) m/uL Hgb 8.9 L (13.0-17.5) gm/dL Hct 29.0 L (39.0-53.0) % MCHC 30.7 L (31.0-37.0) g/dL RDW 18.9 H (11.5-15.5) % Lymphocytes # 0.7 L (1.0-4.8) k/uL PT 20.8 H (9.0-12.0) sec INR 2.3 H (<1.2) BUN 38 H (9-20) mg/dL Creatinine 1.48 H (0.66-1.25) mg/dL Assessment and Plan Plan: Assessment: 1. Acute kidney injury secondary to ATN secondary to cardiorenal syndrome. Creatinine peaked at 2.33 this admission and came down to 1.38 on March 28 - 1.48 today. Trace proteinuria on UA. No evidence of hydronephrosis. 2. Hyperkalemia secondary to acute kidney injury. Resolved. Then became hypokalemic from diuresis. Improved post replacement. 3. Hypervolemic hyponatremia. Improved from admission. 4. Volume overload. Improving. 5. Systolic CHF with ejection fraction of less than 20% with moderate to severe mitral regurgitation. 6. Metabolic acidosis secondary to acute kidney injury. Resolved. 7. Hyperphosphatemia secondary to acute kidney injury. Improved. 8. Urinary retention status post Klein catheter placement. Removed this AM. Plan: I will change Lasix to 40 mg orally twice daily. Maintain midodrine 10 mg 3 times daily. 1500 mL fluid restriction. Low-salt diet. Daily weights. Strict I's and O's. Maintain Flomax. Repeat electrolytes in the morning. Continue to monitor bladder scans to rule out urinary retention. Basic metabolic panel within 2-3 days of discharge and follow up outpatient in the next 1-2 weeks.
[2018-03-31 15:55] VITALS: BP 107/74; PULSE 76; TEMP 98.5
[2018-03-31] MEDS ORDERED: FUROSEMIDE 40 MG TAB PO SCH (16:00)
== END 2018-03-31 16:07 | disposition home or self-care (01) | DRG 291 ==
LOC: EC 07:38 → 3SCARD 09:48 → 2SICU 03-23 01:53 → 4SSUR 03-28 14:24
PROVIDERS: ADMIT Internal Medicine; ATTEND Internal Medicine
PROC: 0WJ83ZZ Inspection of Chest Wall, Percutaneous Approach (ICD-10-PCS; principal; 2018-03-24)
DX: I13.0 Hypertensive heart and chronic kidney disease with heart failure and stage 1 through stage 4 chronic kidney disease, or unspecified chronic kidney disease (principal); R57.0 Cardiogenic shock; I50.23 Acute on chronic systolic (congestive) heart failure; N17.0 Acute kidney failure with tubular necrosis; J96.21 Acute and chronic respiratory failure with hypoxia; I48.1 Persistent atrial fibrillation; F10.239 Alcohol dependence with withdrawal, unspecified; E87.1 Hypo-osmolality and hyponatremia; E87.2 Acidosis; J91.8 Pleural effusion in other conditions classified elsewhere; G93.40 Encephalopathy, unspecified; I48.92 Unspecified atrial flutter; J98.11 Atelectasis; N18.3 Chronic kidney disease, stage 3 (moderate); E11.22 Type 2 diabetes mellitus with diabetic chronic kidney disease; R44.1 Visual hallucinations; I48.2 Chronic atrial fibrillation; D63.8 Anemia in other chronic diseases classified elsewhere; M10.9 Gout, unspecified; E87.5 Hyperkalemia; E87.6 Hypokalemia; E83.39 Other disorders of phosphorus metabolism; R33.9 Retention of urine, unspecified; Z79.01 Long term (current) use of anticoagulants; E66.9 Obesity, unspecified; Z68.33 Body mass index [BMI] 33.0-33.9, adult; M47.817 Spondylosis without myelopathy or radiculopathy, lumbosacral region; Z82.49 Family history of ischemic heart disease and other diseases of the circulatory system; Z84.1 Family history of disorders of kidney and ureter; Z79.899 Other long term (current) drug therapy; Z88.8 Allergy status to other drugs, medicaments and biological substances; C61 Malignant neoplasm of prostate; Z85.828 Personal history of other malignant neoplasm of skin; Z96.641 Presence of right artificial hip joint; Z87.891 Personal history of nicotine dependence; Z82.0 Family history of epilepsy and other diseases of the nervous system; I08.1 Rheumatic disorders of both mitral and tricuspid valves; G89.29 Other chronic pain; M54.5 Low back pain; M19.90 Unspecified osteoarthritis, unspecified site; I27.22 Pulmonary hypertension due to left heart disease; T50.2X5A Adverse effect of carbonic-anhydrase inhibitors, benzothiadiazides and other diuretics, initial encounter; D69.6 Thrombocytopenia, unspecified; I42.6 Alcoholic cardiomyopathy; J44.9 Chronic obstructive pulmonary disease, unspecified
CPT/HCPCS: 36415; 71045; 71046; 71250; 76604; 76770; 80048; 80053; 81001; 82550; 82553; 83036; 83735; 83880; 84100; 84132; 84484; 85025; 85379; 85610; 85730; 93005; 93306; 93970; 96365; 96366; 96375; 96376; 99285

== ENCOUNTER → 2019-06-22 | Outpatient (CLI) | payer MEDICARE ==
--- NOTE | 2019-07-03 08:52 | MR ---
EXAMINATION TYPE: MR Prostate wo/w con DATE OF EXAM: 06/22/2019 COMPARISON: None. INDICATION: Prostate CA PSA: 6.0 ng/ml on May 10, 2019 Recent Biopsy and Date: March 29, 2014 Pathology Report (If Applicable): Right lateral base Bijan score 3+3 = 6 1%, 0.1 mm. Left lateral a pex Bijan score 3+3 = 6 50% 5 mm. Left apex Bijan score 3+3 = 6 50% 5 mm. TECHNIQUE: Examination was performed using a 3T MRI without an endorectal coil. Multiparametric imaging was perf ormed with T2 multiplanar sequences, axial diffusion weighted imaging and dynamic contrast enhanced i maging, utilizing 11.5 mL intravenous Gadavist gadolinium contrast. FINDINGS: There is no clinically significant cancer identified. PROSTATE VOLUME: 4.3 cm SI x 3.3 cm AP x 4.5 cm LR Vol= 33.4 cc PSA DENSITY: 4.008 ng/ml/cc Prostate gland overall mildly enlarged with transitional zone hypertrophy bulging into the bladder ba se. Site 1: Assessment Category:3 Size: 5 x 3 mm Location(s):right mid lateral aspect image 196 series 1307 for reference NVB invasion: No EPE: No Diffusion no significant increased signal Site 2: Assessment Category: 2 Size: 6 x 6 x 6 mm Location(s):left mid lateral aspect axial image 20 series 1301 circumscribed hypointense lesion. NVB invasion: No EPE: No Seminal vesicle invasion: No Abnormal lymph nodes: None identified. Bone metastases in inferior pelvis: Artifact from right hip arthroplasty noted. Some heterogeneity of bone marrow signal intensity without definitive abnormal osseous lesion. Prostatic capsule appears intact. Visualized bladder is within normal limits. No concerning pelvic fl uid collection or suspicious bowel dilatation. Some diverticula in the distal sigmoid colon are prese nt. IMPRESSION: Highest Assessment Category: 3 MRI Stage: T1c N0 M0 based on review of pelvic images. False negative rates for MRI range from 5-20% depending on risk profile. Assessment Categories: 1 ? Very low (clinically significant cancer is highly unlikely to be present) 2 ? Low (clinically significant cancer is unlikely to be present) 3 ? Intermediate (the presence of clinically significant cancer is equivocal) 4 ? High (clinically significant cancer is likely to be present) 5 ? Very high (clinically significant cancer is highly likely to be present) Locations: PZ = peripheral zone; TZ = transition zone CZ=central zone; AFS = anterior fibromuscular stroma a=anterior half (i.e. PZa=anterior half of peripheral zone); pm= posterior medial (i.e PZpm) pl = postero-lateral (i.e. PZpl); p = posterior half (i.e. TZp) ; a = anterior half (i.e TZa or P Za) Other: N=no or no; E= equivocal; Y=yes EPE = extraprostatic extension NVB = neurovascular bundle NA = not applicable/not available
== END | disposition home or self-care (01) ==
LOC: RADMRIMAIN 09:41
PROVIDERS: ATTEND Urology
DX: C61 Malignant neoplasm of prostate (principal)
CPT/HCPCS: 72197

== ENCOUNTER → 2019-06-30 | Outpatient (CLI) | payer MEDICARE | END | disposition home or self-care (01) | LOC: RADXRMAIN 14:17 | PROVIDERS: ATTEND Urology | DX: Z53.9 Procedure and treatment not carried out, unspecified reason (principal) ==

== ENCOUNTER 2019-12-04 17:35 | Emergency (ER) | payer MEDICARE ==
[2019-12-04 17:45] VITALS: TEMP 98.4
[2019-12-04 17:50] LABS: Glucose,Whole Blood 87 mg/dL (75-99)
[2019-12-04] MEDS ORDERED: DIPH,PERTUS(ACELL)TETVAC-LF 0.5 ML VIAL IM ONE (18:07)
--- NOTE | 2019-12-04 18:08 | ED ---
General Adult HPI - General Chief complaint: Altered Mental Status Stated complaint: altered mental Time Seen by Provider: 12/04/19 17:49 Source: patient, EMS Mode of arrival: EMS Limitations: altered mental status - History of Present Illness Initial comments: Dictation was produced using [employer] dictation software. please excuse any grammatical, word or spelling errors. This patient was cared for during a federal and state declared state of em ergency secondary to Covid 19 Chief Complaint: 64-year-old male brought in for altered mental status History of Present Illness:. 64-year-old man is brought in by EMS for altered mental status. Patient is a reliable historian. Patient states he was drinking when he drank too much. He was understanding his nephew called EMS because of behavior. He has no complaints at this time. He reports he does drink regularly. Patient has history of A. fib and takes Coumadin. He has no pain complaints at this time. He did recall striking his heel on accident causing a skin tear. Does not recall when his last tetanus was The ROS documented in this emergency department record has been reviewed and confirmed by me. Those systems with pertinent positive or negative responses have been documented in the HPI. All other systems are other negative and/or noncontributory. PHYSICAL EXAM: General Impression: Alert and oriented x3, not in acute distress, inebriated HEENT: Normocephalic atraumatic, extra-ocular movements intact, pupils equal and reactive to light bilaterally, mucous membranes moist. Cardiovascular: Heart regular rate and rhythm Chest: Able to complete full sentences, no retractions, no tachypnea Abdomen: abdomen soft, non-tender, non-distended, no organomegaly Musculoskeletal: Pulses present and equal in all extremities, no peripheral edema Motor: no focal deficits noted Neurological: CN II-XII grossly intact, no focal motor or sensory deficits noted Skin: Intact with no visualized rashes, superficial skin avulsion to the right heel Psych: Normal affect and mood ED course: 64-year-old male presents with acute intoxication. Vital signs upon arrival are within acceptable limits. Physical examination is benign. Laboratory evaluation obtained. CBC, coag panel, metabolic panel is unremarkable. No Acidosis. Serum alcohol is 286. Patient expresses desired to be discharged. Patient is an ambulatory without complications. He has no gait instability or ataxia. He states he feels well. He has no complaints at this time he has family that will come and pick him up and stay with him throughout the night. Patient understands that he should return to emergency Department with any worsening symptoms especially ataxia, focal neurologic deficits or altered mental status. EKG interpretation: Ventricular rate 82, A. fib, QRS 94, QTC 479. No MS prol ongation, no QTC prolongation, no ST or T-wave changes noted. . Overall, this EKG is unremarkable - Related Data Home Medications Medication Instructions Recorded Confirmed Allopurinol [Zyloprim] 100 mg PO DAILY 03/22/18 03/22/18 Ascorbic Acid [Vitamin C] 500 mg PO DAILY 03/22/18 03/22/18 Magnesium Oxide [Mag-Ox] 250 mg PO DAILY 03/22/18 03/22/18 Warfarin [Coumadin] 6 mg PO DAILY 03/22/18 03/22/18 Previous Rx's Medication Instructions Recorded ALPRAZolam [Xanax] 0.5 mg PO TID PRN tab 03/30/18 Cyclobenzaprine [Flexeril] 10 mg PO HS tab 03/30/18 Docusate [Colace] 100 mg PO BID cap 03/30/18 Metoprolol Succinate (ER) [Toprol 50 mg PO DAILY #30 tab.er.24h 03/30/18 XL] traMADol HCl [Ultram] 50 mg PO QID PRN tab 03/30/18 Furosemide [Lasix] 40 mg PO BID@0900,1600 #60 tab 03/31/18 Tamsulosin [Flomax] 0.4 mg PO PC-BRKFST #30 cap.er.24h 03/31/18 Warfarin [Coumadin] 6 mg PO DAILY@1800 tab 03/31/18 Allergies Allergy/AdvReac Type Severity Reaction Status Date / Time colchicine Allergy Unknown Verified 12/04/19 17:46 probenecid Allergy Unknown Verified 12/04/19 17:46 Review of Systems ROS Statement: Those systems with pertinent positive or pertinent negative responses have been documented in the HPI. ROS Other: All systems not noted in ROS Statement are negative. Past Medical History Past Medical History: Atrial Fibrillation, Cancer, Hypertension Additional Past Medical History / Comment(s): Congestion heart failure, prostate cancer diagnosed 3 years ago, known history of valvular heart disease with m itral valve regurgitation, skin cancer was resected from the face, chronic alcoholism, chronic smoking, chronic back pain, degenerative arthritis, chronic atrial fibrillation, hypertension History of Any Multi-Drug Resistant Organisms: None Reported Past Surgical History: Joint Replacement, Orthopedic Surgery Additional Past Surgical History / Comment(s): Total right hip arthroplasty, L knee reconstruction, R rotator cuff repair, pilonidial cystectomy, skin cancer removals from face, back injections. Past Anesthesia/Blood Transfusion Reactions: No Reported Reaction Additional Past Anesthesia/Blood Transfusion Reaction / Comment(s): Pt has received blood in past without reaction. Past Psychological History: No Psychological Hx Reported Smoking Status: Former smoker Past Alcohol Use History: Heavy - Past Family History Father Family Medical History: Dementia Additional Family Medical History / Comment(s): Father at the age of 72 yrs. Mother Family Medical History: AFIB Additional Family Medical History / Comment(s): Mother is 93 yrs old. General Exam Limitations: altered mental status Course Vital Signs 12/04/19 12/04/19 17:40 18:56 Temperature 98.4 F Pulse Rate 92 65 Respiratory 18 16 Rate Blood Pressure 116/85 115/75 O2 Sat by Pulse 97 100 Oximetry Medical Decision Making - Lab Data Result diagrams: 12/04/19 17:53 12/04/19 17:53 Lab Results 12/04/19 12/04/19 12/04/19 Range/Units 17:44 17:53 17:53 WBC 4.9 (3.8-10.6) k/uL RBC 3.56 L (4.30-5.90) m/uL Hgb 11.2 L D (13.0-17.5) gm/dL Hct 35.2 L (39.0-53.0) % MCV 98.9 D (80.0-100.0) fL MCH 31.5 (25.0-35.0) pg MCHC 31.8 (31.0-37.0) g/dL RDW 15.8 H (11.5-15.5) % Plt Count 186 D (150-450) k/uL Neutrophils % 72 % Lymphocytes % 21 % Monocytes % 4 % Eosinophils % 1 % Basophils % 0 % Neutrophils # 3.5 (1.3-7.7) k/uL Lymphocytes # 1.0 (1.0-4.8) k/uL Monocytes # 0.2 (0-1.0) k/uL Eosinophils # 0.1 (0-0.7) k/uL Basophils # 0.0 (0-0.2) k/uL Hypochromasia Marked Poikilocytosis Slight Macrocytosis Slight PT 15.5 H (9.0-12.0) sec INR 1.6 H (<1.2) APTT 28.6 (22.0-30.0) sec Sodium (137-145) mmol/L Potassium (3.5-5.1) mmol/L Chloride (98-107) mmol/L Carbon Dioxide (22-30) mmol/L Anion Gap mmol/L BUN (9-20) mg/dL Creatinine (0.66-1.25) mg/dL Est GFR (CKD-EPI)AfAm (>60 ml/min/1.73 sqM) Est GFR (CKD-EPI)NonAf (>60 ml/min/1.73 sqM) Glucose (74-99) mg/dL POC Glucose (mg/dL) 87 (75-99) mg/dL POC Glu First [employer] Operator ID Pauly Valentino Calcium (8.4-10.2) mg/dL Magnesium (1.6-2.3) mg/dL Total Bilirubin (0.2-1.3) mg/dL AST (17-59) U/L ALT (4-49) U/L Alkaline Phosphatase (38-126) U/L Total Protein (6.3-8.2) g/dL Albumin (3.5-5.0) g/dL Serum Alcohol mg/dL 12/04/19 Range/Units 17:53 WBC (3.8-10.6) k/uL RBC (4.30-5.90) m/uL Hgb (13.0-17.5) gm/dL Hct (39.0-53.0) % MCV (80.0-100.0) fL MCH (25.0-35.0) pg MCHC (31.0-37.0) g/dL RDW (11.5-15.5) % Plt Count (150-450) k/uL Neutrophils % % Lymphocytes % % Monocytes % % Eosinophils % % Basophils % % Neutrophils # (1.3-7.7) k/uL Lymphocytes # (1.0-4.8) k/uL Monocytes # (0-1.0) k/uL Eosinophils # (0-0.7) k/uL Basophils # (0-0.2) k/uL Hypochromasia Poikilocytosis Macrocytosis PT (9.0-12.0) sec INR (<1.2) APTT (22.0-30.0) sec Sodium 142 (137-145) mmol/L Potassium 3.4 L (3.5-5.1) mmol/L Chloride 108 H (98-107) mmol/L Carbon Dioxide 23 (22-30) mmol/L Anion Gap 11 mmol/L BUN 21 H (9-20) mg/dL Creatinine 1.14 (0.66-1.25) mg/dL Est GFR (CKD-EPI)AfAm 79 (>60 ml/min/1.73 sqM) Est GFR (CKD-EPI)NonAf 68 (>60 ml/min/1.73 sqM) Glucose 77 (74-99) mg/dL POC Glucose (mg/dL) (75-99) mg/dL POC Glu First [employer] Operator ID Calcium 8.2 L (8.4-10.2) mg/dL Magnesium 1.9 (1.6-2.3) mg/dL Total Bilirubin 0.3 (0.2-1.3) mg/dL AST 36 (17-59) U/L ALT 14 (4-49) U/L Alkaline Phosphatase 78 (38-126) U/L Total Protein 6.0 L (6.3-8.2) g/dL Albumin 3.8 (3.5-5.0) g/dL Serum Alcohol 286 H* mg/dL Disposition Clinical Impression: Alcoholic intoxication Disposition: HOME SELF-CARE Condition: Fair Instructions (If sedation given, give patient instructions): Alcohol Intoxication (ED) Is patient prescribed a controlled substance at d/c from ED?: No Referrals: Abdullahi Brito MD [Primary Care Provider] - 1-2 days Time of Disposition: 19:03
[2019-12-04 18:18] LABS: Basophils % (A) 0 %; Eosinophils # (A) 0.1 k/uL (0-0.7); Eosinophils % (A) 1 %; HCT 35.2 % (39.0-53.0); Hypochromasia Marked; Lymphocytes % (A) 21 %; MCH 31.5 pg (25.0-35.0); MCHC 31.8 g/dL (31.0-37.0); Macrocytosis Slight; Mean Platelet Volume 7.5; Monocytes # (A) 0.2 k/uL (0-1.0); Monocytes % (A) 4 %; Neutrophils # (A) 3.5 k/uL (1.3-7.7); Neutrophils % (A) 72 %; Poikilocytosis Slight; RBC 3.56 m/uL (4.30-5.90); RDW 15.8 % (11.5-15.5); WBC 4.9 k/uL (3.8-10.6)
[2019-12-04 18:20] LABS: INR 1.6 (<1.2); Partial Thromboplastin Time 28.6 sec (22.0-30.0); Prothrombin Time 15.5 sec (9.0-12.0)
[2019-12-04 18:41] LABS: HGB 11.2 gm/dL (13.0-17.5); MCV 98.9 fL (80.0-100.0); Platelet Count 186 k/uL (150-450)
[2019-12-04 18:47] LABS: Albumin 3.8 g/dL (3.5-5.0); Calcium 8.2 mg/dL (8.4-10.2); Magnesium 1.9 mg/dL (1.6-2.3); Potassium 3.4 mmol/L (3.5-5.1); Total Bilirubin 0.3 mg/dL (0.2-1.3)
[2019-12-04 18:58] VITALS: BP 115/75; PULSE 65; RESP 16
== END 2019-12-04 19:43 | disposition home or self-care (01) ==
LOC: EC 17:35
DX: F10.129 Alcohol abuse with intoxication, unspecified (principal); I48.20 Chronic atrial fibrillation, unspecified; Z79.01 Long term (current) use of anticoagulants; Z88.8 Allergy status to other drugs, medicaments and biological substances; Z23 Encounter for immunization; Z85.46 Personal history of malignant neoplasm of prostate; Z85.828 Personal history of other malignant neoplasm of skin; Z87.891 Personal history of nicotine dependence; Z96.641 Presence of right artificial hip joint; Y90.8 Blood alcohol level of 240 mg/100 ml or more
CPT/HCPCS: 36415; 80053; 83735; 85025; 85610; 85730; 90715; 99285; 90471; G0480; 80320

== ENCOUNTER 2019-12-27 15:44 | Emergency (ER) | payer MEDICARE ==
[~2019-12-27 15:44] MED LIST: HUMAN PROTHROMBIN COMPLX 500 UNIT/16 ML VIAL IV ONE
[2019-12-27] MEDS ORDERED: ETOMIDATE 2 MG/ML 10 ML VIAL IVP STA (15:52)
[2019-12-27] MEDS ORDERED: ROCURONIUM 10 MG/ML (5 ML VIAL) IV ONE (15:52)
[2019-12-27 15:54] LABS: Glucose,Whole Blood 158 mg/dL (75-99)
[2019-12-27 16:01] VITALS: BP 154/97; PULSE 161; RESP 16; TEMP 103.1
[2019-12-27] MEDS ORDERED: SODIUM CHLORIDE 0.9% 1,000 ML IV STA (16:06)
[2019-12-27] MEDS ORDERED: ACETAMINOPHEN SUPPOSITORY 650 MG SUPP RECTAL STA (16:06)
--- NOTE | 2019-12-27 16:08 | P.GSCN ---
History of Present Illness Consult date: 12/27/19 History of present illness: TRAUMA ACTIVATION: Level I trauma activation status fall HISTORY OF PRESENT ILLNESS: The patient is a 64-year-old male who presents as a Level 1 trauma activation. He presents with GCS 3, s/p fall and was found down, unresponsive with head trauma. No additional history is available. PAST MEDICAL HISTORY: Unable to obtain PAST SURGICAL HISTORY: Unable to obtain MEDICATIONS Unable to obtain ALLERGIES: Unable to obtain SOCIAL HISTORY: Unable to obtain FAMILY HISTORY: Unable to obtain REVIEW OF SYSTEMS: Unable to obtain PHYSICAL EXAM: VITALS: Reviewed. Temp 103. CONSTITUTIONAL: Unresponsive. GCS 3 (E 1, V 1, M1) EYES: Conjuctivae without sclera icterus. HEAD, EARS, NOSE, THROAT: Moist buccal mucosa. NECK: No JV distention. No thyroidomegaly. Cervical spine collar intact. No crepitus. RESPIRATORY: Non-labored respirations and equal bilateral excursions. No gross wheezes. No crepitus. CARDIOVASCULAR: Extremities without moderate edema ABDOMEN: Soft. Nondistended. MUSCULOSKELETAL: No clubbing. Bruising along bilateral ASIS. SKIN: Cool with delayed skin turgor. NEUROLOGIC: Deferred. PSYCH: Deferred. LABS: Reviewed WBC 12.6 and INR 4.2. Lactate elevated ASSESSMENT: 1. Level I trauma activation, status post fall 2. Intra-cranial hemorrhage EVENTS: I presented within 30 minutes of Level 1 trauma activation. Presents with GCS 3, s/p fall, found down, unresponsive, head trauma. PLAN: 1. Recommend paige computed tomography scan 2. Likely head trauma with transfer for neurosurgical care. ADDENDUM: STUDIES: Personally independently reviewed CT of the chest abdomen and pelvis without intra-abdominal hemorrhage, free air, with cardiomegaly. CT head: Findings of intra-cranial bleed with shift. Critical care time: 33 minutes Past Medical History Past Medical History: Atrial Fibrillation, Cancer, Hypertension Additional Past Medical History / Comment(s): Congestion heart failure, prostate cancer diagnosed 3 years ago, known history of valvular heart disease with mitral valve regurgitation, skin cancer was resected from the face, chronic alcoholism, chronic smoking, chronic back pain, degenerative arthritis, chronic atrial fibrillation, hypertension History of Any Multi-Drug Resistant Organisms: None Reported Past Surgical History: Joint Replacement, Orthopedic Surgery Additional Past Surgical History / Comment(s): Total right hip arthroplasty, L knee reconstruction, R rotator cuff repair, pilonidial cystectomy, skin cancer removals from face, back injections. Past Anesthesia/Blood Transfusion Reactions: No Reported Reaction Additional Past Anesthesia/Blood Transfusion Reaction / Comm: Pt has received blood in past without reaction. Past Psychological History: No Psychological Hx Reported Past Alcohol Use History: Heavy - Past Family History Father Family Medical History: Dementia Additional Family Medical History / Comment(s): Father at the age of 72 yrs. Mother Family Medical History: AFIB Additional Family Medical History / Comment(s): Mother is 93 yrs old. Medications and Allergies Home Medications Medication Instructions Recorded Confirmed Type Ascorbic Acid [Vitamin C] 500 mg PO DAILY 03/22/18 03/22/18 History Magnesium Oxide [Mag-Ox] 250 mg PO DAILY 03/22/18 03/22/18 History Warfarin [Coumadin] 6 mg PO DAILY 03/22/18 03/22/18 History allopurinoL [Zyloprim] 100 mg PO DAILY 03/22/18 03/22/18 History ALPRAZolam [Xanax] 0.5 mg PO TID PRN tab 03/30/18 Rx Cyclobenzaprine [Flexeril] 10 mg PO HS tab 03/30/18 Rx Docusate [Colace] 100 mg PO BID cap 03/30/18 Rx Metoprolol Succinate (ER) [Toprol 50 mg PO DAILY #30 tab.er.24h 03/30/18 Rx XL] traMADol HCl [Ultram] 50 mg PO QID PRN tab 03/30/18 Rx Furosemide [Lasix] 40 mg PO BID@0900,1600 #60 tab 03/31/18 Rx Tamsulosin [Flomax] 0.4 mg PO PC-BRKFST #30 cap.er.24h 03/31/18 Rx Warfarin [Coumadin] 6 mg PO DAILY@1800 tab 03/31/18 Rx Allergies Allergy/AdvReac Type Severity Reaction Status Date / Time colchicine Allergy Unknown Verified 12/04/19 17:46 probenecid Allergy Unknown Verified 12/04/19 17:46 Surgical - Exam Vital Signs Temp Pulse Resp BP Pulse Ox 103.1 F H 161 H 16 154/97 100 12/27/19 15:52 12/27/19 15:52 12/27/19 15:52 12/27/19 15:52 12/27/19 15:52 Results - Labs 12/27/19 16:00 12/27/19 16:00 Abnormal Lab Results - Last 24 Hours (Table) 12/27/19 Range/Units 15:51 POC Glucose (mg/dL) 158 H (75-99) mg/dL
--- NOTE | 2019-12-27 16:14 | ED ---
General Adult HPI - General Chief complaint: Altered Mental Status Stated complaint: Fall/Trauma Source: EMS Mode of arrival: EMS Limitations: altered mental status - History of Present Illness Initial comments: Dictation was produced using [employer] dictation software. please excuse any grammatical, word or spelling errors. This patient was cared for during a federal and state declared state of emergency secondary to Covid 19 Chief Complaint: 64-year-old male brought in by EMS after found unresponsive History of Present Illness: 64-year-old male has past medical history of H fibrillation. Patient is on Coumadin. Patient is brought in by EMS after being found at home unresponsive by family. According to EMS patient was last seen normal yesterday. Family member went to his place of residence and noted that he was unresponsive and on the ground. They did note that there was some bruising all over his body. Patient is a known alcoholic. Patient takes Coumadin for A. fib according to chart review. EMS reports that patient had stable vitals. His sugar was 211. EMS placed BiPAP to assist his breathing. He was breathing spontaneously. Patient is obtunded and unable to provide HPI. Inability to obtain ROS secondary to mental status PHYSICAL EXAM: General Impression: Obtunded, unresponsive, he does respond to painful stimuli however does not localize HEENT: Left periorbital with tarsal plate sparing, no campos sign, unable to visualize tympanic membrane on the left Cardiovascular: Tachycardic irregular Chest: Bilateral breath sounds Abdomen: abdomen soft, nondistended Musculoskeletal: Pulses present and equal in all extremities, no peripheral edema, no step-offs crepitus or deformities to the spinal column Motor: Not moving his extremities, no extensor or flexor posturing Neurological: Pupils 4 mm and reactive to light and equal, no gaze deviation Skin: Multiple bruises all over his trunk and hips ED course: 64-year-old male found unresponsive at home. He does have evidence of head trauma. Vital signs upon arrival shows heart rate of 161, temperature 103.1, rest of vital signs within acceptable limits. Patient is not hypoxic. Patient is unresponsive with signs of head trauma. There is concern of Germanic intracranial bleed. Patient was unresponsive. Rapid sequence intubation was performed using etomidate and rocuronium. Patient has multiple bruises all over his body. Chart review shows that patient is a chronic alcoholic with history of A. fib taking Coumadin. I am familiar with this patient because I saw him earlier this month for acute alcoholism. According EMS patient lives on his own. Level I trauma was activated. Patient was seen and evaluated in trauma bay #2 per ATLS protocol. Patient was placed on residential monitor. Cardiac pads were applied. Chest x-ray and pelvis x-ray shows no acute processes. Posterior EKG did not show any ST elevations. Veloz CT was ordered. Patient has evidence of large subdural bleed with midline shift to the left. In her to not delay transfer [facility] was called for ER to ER transfer. Accepting physician for [facility] Martinez is Dr. Escobar who is willing to accept patients care. Patient's INR is 4.2. prothrombin complex concentrate was ordered for patient per pharmacy. PCC was administered. Patient was ordered for broad-spectrum antibiotics however she only received cefepime because vancomycin administration would've delay transfer even more.. ET tube was advanced 1 cm. A G-tube was placed by nursing staff. Patient given rectal Tylenol suppository. Patient blood pressures remained stable. No indication for aggressive blood pressure control at this time. Patient shows signs of brain herniation. Patient said was elevated and patient was hyperventilated. Patient was also given mannitol and Txa. Radiology read was not completed prior to patient being transferred. CT was reviewed by myself. Besides will was seen intracranially. There was no other obvious abnormalities seen on CT of the chest abdomen pelvis or cervical spine. In order to not delay transfer any further patient will be transferred immediately with spinal precautions. EKG interpretation: Ventricular rate 117, atrial fibrillation, QRS 84, QTC 496. No HI prolongation, no QTC prolongation, there are ST depressions in the anterior precordial leads. - Related Data Home Medications Medication Instructions Recorded Confirmed Ascorbic Acid [Vitamin C] 500 mg PO DAILY 03/22/18 03/22/18 Magnesium Oxide [Mag-Ox] 250 mg PO DAILY 03/22/18 03/22/18 Warfarin [Coumadin] 6 mg PO DAILY 03/22/18 03/22/18 allopurinoL [Zyloprim] 100 mg PO DAILY 03/22/18 03/22/18 Previous Rx's Medication Instructions Recorded ALPRAZolam [Xanax] 0.5 mg PO TID PRN tab 03/30/18 Cyclobenzaprine [Flexeril] 10 mg PO HS tab 03/30/18 Docusate [Colace] 100 mg PO BID cap 03/30/18 Metoprolol Succinate (ER) [Toprol 50 mg PO DAILY #30 tab.er.24h 03/30/18 XL] traMADol HCl [Ultram] 50 mg PO QID PRN tab 03/30/18 Furosemide [Lasix] 40 mg PO BID@0900,1600 #60 tab 03/31/18 Tamsulosin [Flomax] 0.4 mg PO PC-BRKFST #30 cap.er.24h 03/31/18 Warfarin [Coumadin] 6 mg PO DAILY@1800 tab 03/31/18 Allergies Allergy/AdvReac Type Severity Reaction Status Date / Time colchicine Allergy Unknown Verified 12/04/19 17:46 probenecid Allergy Unknown Verified 12/04/19 17:46 Review of Systems ROS Statement: Those systems with pertinent positive or pertinent negative responses have been documented in the HPI. ROS Other: All systems not noted in ROS Statement are negative. Past Medical History Past Medical History: Atrial Fibrillation, Cancer, Hypertension Additional Past Medical History / Comment(s): Congestion heart failure, prostate cancer diagnosed 3 years ago, known history of valvular heart disease with mitral valve regurgitation, skin cancer was resected from the face, chronic alcoholism, chronic smoking, chronic back pain, degenerative arthritis, chronic atrial fibrillation, hypertension History of Any Multi-Drug Resistant Organisms: None Reported Past Surgical History: Joint Replacement, Orthopedic Surgery Additional Past Surgical History / Comment(s): Total right hip arthroplasty, L knee reconstruction, R rotator cuff repair, pilonidial cystectomy, skin cancer removals from face, back injections. Past Anesthesia/Blood Transfusion Reactions: No Reported Reaction Additional Past Anesthesia/Blood Transfusion Reaction / Comment(s): Pt has received blood in past without reaction. Past Psychological History: No Psychological Hx Reported Past Alcohol Use History: Heavy - Past Family History Father Family Medical History: Dementia Additional Family Medical History / Comment(s): Father at the age of 72 yrs. Mother Family Medical History: AFIB Additional Family Medical History / Comment(s): Mother is 93 yrs old. General Exam Limitations: altered mental status Course Vital Signs 12/27/19 15:52 Temperature 103.1 F H Pulse Rate 161 H Respiratory 16 Rate Blood Pressure 154/97 O2 Sat by Pulse 100 Oximetry Procedures - Intubation Sedative: Etomidate Paralytic: Rocuronium Laryngoscope: fiber optic video scope Size: 3 Assist Device Used: fiber optic device ET Tube Size: 8 ET Tube Uncuffed: No Tube Secured Depth (cm): 24 Tube Secured Location: lips Tube Placement Confirmation: visualized tube passing through cords, equal breath sounds bilaterally Patient Tolerated Procedure: well Intubation Complications: none Medical Decision Making - Lab Data Result diagrams: 12/27/19 16:00 12/27/19 16:00 Lab Results 12/27/19 12/27/19 12/27/19 Range/Units 15:51 16:00 16:00 WBC (3.8-10.6) k/uL RBC (4.30-5.90) m/uL Hgb (13.0-17.5) gm/dL Hct (39.0-53.0) % MCV (80.0-100.0) fL MCH (25.0-35.0) pg MCHC (31.0-37.0) g/dL RDW (11.5-15.5) % Plt Count (150-450) k/uL Neutrophils % % Lymphocytes % % Monocytes % % Eosinophils % % Basophils % % Neutrophils # (1.3-7.7) k/uL Lymphocytes # (1.0-4.8) k/uL Monocytes # (0-1.0) k/uL Eosinophils # (0-0.7) k/uL Basophils # (0-0.2) k/uL Hypochromasia Anisocytosis PT 41.1 H (9.0-12.0) sec INR 4.2 H (<1.2) APTT 32.6 H (22.0-30.0) sec Sodium (137-145) mmol/L Potassium (3.5-5.1) mmol/L Chloride (98-107) mmol/L Carbon Dioxide (22-30) mmol/L Anion Gap mmol/L BUN (9-20) mg/dL Creatinine (0.66-1.25) mg/dL Est GFR (CKD-EPI)AfAm (>60 ml/min/1.73 sqM) Est GFR (CKD-EPI)NonAf (>60 ml/min/1.73 sqM) Glucose (74-99) mg/dL POC Glucose (mg/dL) 158 H (75-99) mg/dL POC Glu Staff Counselor ID Jeremy, II, Jc Plasma Lactic Acid Reed (0.7-2.0) mmol/L Calcium (8.4-10.2) mg/dL Total Bilirubin (0.2-1.3) mg/dL AST (17-59) U/L ALT (4-49) U/L Alkaline Phosphatase (38-126) U/L Total Creatine Kinase (55-170) U/L CK-MB (CK-2) (0.0-2.4) ng/mL CK-MB (CK-2) Rel Index Troponin I (0.000-0.034) ng/mL Total Protein (6.3-8.2) g/dL Albumin (3.5-5.0) g/dL Amylase (30-110) U/L Lipase (23-300) U/L Serum Alcohol mg/dL Blood Type Recheck No Previous Record Bld Type Recheck Status CABO Indicated Spec Expiration Date 12/30/2019 - 229912/27/19 12/27/19 12/27/19 Range/Units 16:00 16:00 16:00 WBC 12.6 H (3.8-10.6) k/uL RBC 3.99 L (4.30-5.90) m/uL Hgb 11.3 L (13.0-17.5) gm/dL Hct 37.0 L (39.0-53.0) % MCV 92.9 D (80.0-100.0) fL MCH 28.4 (25.0-35.0) pg MCHC 30.5 L (31.0-37.0) g/dL RDW 17.4 H (11.5-15.5) % Plt Count 172 (150-450) k/uL Neutrophils % 94 % Lymphocytes % 2 % Monocytes % 4 % Eosinophils % 0 % Basophils % 0 % Neutrophils # 11.8 H (1.3-7.7) k/uL Lymphocytes # 0.2 L (1.0-4.8) k/uL Monocytes # 0.5 (0-1.0) k/uL Eosinophils # 0.0 (0-0.7) k/uL Basophils # 0.0 (0-0.2) k/uL Hypochromasia Marked Anisocytosis Slight PT (9.0-12.0) sec INR (<1.2) APTT (22.0-30.0) sec Sodium 144 (137-145) mmol/L Potassium 3.6 (3.5-5.1) mmol/L Chloride 105 (98-107) mmol/L Carbon Dioxide 27 (22-30) mmol/L Anion Gap 12 mmol/L BUN 18 (9-20) mg/dL Creatinine 1.06 (0.66-1.25) mg/dL Est GFR (CKD-EPI)AfAm 86 (>60 ml/min/1.73 sqM) Est GFR (CKD-EPI)NonAf 74 (>60 ml/min/1.73 sqM) Glucose 137 H (74-99) mg/dL POC Glucose (mg/dL) (75-99) mg/dL POC Glu Staff Counselor ID Plasma Lactic Acid Reed (0.7-2.0) mmol/L Calcium 8.6 (8.4-10.2) mg/dL Total Bilirubin 1.3 (0.2-1.3) mg/dL AST 74 H (17-59) U/L ALT 37 (4-49) U/L Alkaline Phosphatase 87 (38-126) U/L Total Creatine Kinase 608 H (55-170) U/L CK-MB (CK-2) 9.1 H (0.0-2.4) ng/mL CK-MB (CK-2) Rel Index 1.5 Troponin I 0.198 H* (0.000-0.034) ng/mL Total Protein 6.5 (6.3-8.2) g/dL Albumin 4.0 (3.5-5.0) g/dL Amylase 90 (30-110) U/L Lipase 191 (23-300) U/L Serum Alcohol <10 mg/dL Blood Type Recheck Bld Type Recheck Status Spec Expiration Date 12/27/19 Range/Units 16:00 WBC (3.8-10.6) k/uL RBC (4.30-5.90) m/uL Hgb (13.0-17.5) gm/dL Hct (39.0-53.0) % MCV (80.0-100.0) fL MCH (25.0-35.0) pg MCHC (31.0-37.0) g/dL RDW (11.5-15.5) % Plt Count (150-450) k/uL Neutrophils % % Lymphocytes % % Monocytes % % Eosinophils % % Basophils % % Neutrophils # (1.3-7.7) k/uL Lymphocytes # (1.0-4.8) k/uL Monocytes # (0-1.0) k/uL Eosinophils # (0-0.7) k/uL Basophils # (0-0.2) k/uL Hypochromasia Anisocytosis PT (9.0-12.0) sec INR (<1.2) APTT (22.0-30.0) sec Sodium (137-145) mmol/L Potassium (3.5-5.1) mmol/L Chloride (98-107) mmol/L Carbon Dioxide (22-30) mmol/L Anion Gap mmol/L BUN (9-20) mg/dL Creatinine (0.66-1.25) mg/dL Est GFR (CKD-EPI)AfAm (>60 ml/min/1.73 sqM) Est GFR (CKD-EPI)NonAf (>60 ml/min/1.73 sqM) Glucose (74-99) mg/dL POC Glucose (mg/dL) (75-99) mg/dL POC Glu Staff Counselor ID Plasma Lactic Acid Reed 3.9 H* (0.7-2.0) mmol/L Calcium (8.4-10.2) mg/dL Total Bilirubin (0.2-1.3) mg/dL AST (17-59) U/L ALT (4-49) U/L Alkaline Phosphatase (38-126) U/L Total Creatine Kinase (55-170) U/L CK-MB (CK-2) (0.0-2.4) ng/mL CK-MB (CK-2) Rel Index Troponin I (0.000-0.034) ng/mL Total Protein (6.3-8.2) g/dL Albumin (3.5-5.0) g/dL Amylase (30-110) U/L Lipase (23-300) U/L Serum Alcohol mg/dL Blood Type Recheck Bld Type Recheck Status Spec Expiration Date Critical Care Time Critical Care Time: Yes Total Critical Care Time: 64 Disposition Clinical Impression: Intracranial bleed, SIRS (systemic inflammatory response syndrome) Disposition: ADMITTED IP TO THIS HOSP Condition: Critical Referrals: None,Stated [Primary Care Provider] - 1-2 days Time of Disposition: 16:58 - Out of Hospital Transfer - Req. Specs Out of Hospital Transfer - Requested Specifics: Other Emergency Center ([facility])
[2019-12-27 16:21] LABS: Anisocytosis Slight; Basophils % (A) 0 %; Eosinophils % (A) 0 %; HGB 11.3 gm/dL (13.0-17.5); Hypochromasia Marked; Lymphocytes # (A) 0.2 k/uL (1.0-4.8); Lymphocytes % (A) 2 %; MCH 28.4 pg (25.0-35.0); MCHC 30.5 g/dL (31.0-37.0); Mean Platelet Volume 8.2; Monocytes # (A) 0.5 k/uL (0-1.0); Monocytes % (A) 4 %; Neutrophils # (A) 11.8 k/uL (1.3-7.7); Neutrophils % (A) 94 %; Platelet Count 172 k/uL (150-450); RBC 3.99 m/uL (4.30-5.90); RDW 17.4 % (11.5-15.5); WBC 12.6 k/uL (3.8-10.6)
--- NOTE | 2019-12-27 16:21 | XR ---
AP pelvis HISTORY: Trauma and pain Single frontal view of the pelvis, correlation prior exam 06/08/2014 Patient is status post right hip arthroplasty, heterotopic new bone present about the right hip. Dege nerative disc changes are present in the visualized spine. Alignment and bone mineralization within n ormal limits. IMPRESSION: No acute fracture or dislocation.
--- NOTE | 2019-12-27 16:23 | XR ---
EXAMINATION TYPE: XR chest 1V portable DATE OF EXAM: 12/27/2019 COMPARISON: Prior chest x-ray 03/30/2018 HISTORY: Trauma and pain TECHNIQUE: Single frontal view of the chest is obtained. FINDINGS: Endotracheal tube is superimposed over the tracheal air column. There is no evident pneumo thorax or pleural effusion. The heart is enlarged. There is interval improved visualization of the ri ght hemidiaphragm. Widening the mediastinum is again noted. There are overlying leads. No evident mariah g contusion. IMPRESSION: Cardiomegaly. Chronic findings.
[2019-12-27] MEDS ORDERED: Kcentra PER PHARMACY 1 EACH MISC MISCELLANE PRN (16:27)
[2019-12-27 16:28] LABS: ALT 37 U/L (4-49); AST 74 U/L (17-59); African American GFR (CKD) 86 (>60 ml/min/1.73 sqM); Alcohol <10 mg/dL; Alkaline Phosphatase 87 U/L (38-126); Amylase 90 U/L (30-110); Anion Gap 12 mmol/L; Blood Urea Nitrogen 18 mg/dL (9-20); Calcium 8.6 mg/dL (8.4-10.2); Carbon Dioxide 27 mmol/L (22-30); Chloride 105 mmol/L (98-107); Glucose 137 mg/dL (74-99); Lipase 191 U/L (23-300); Non-African American GFR(CKD) 74 (>60 ml/min/1.73 sqM); Potassium 3.6 mmol/L (3.5-5.1); Sodium 144 mmol/L (137-145); Total Bilirubin 1.3 mg/dL (0.2-1.3); Total Protein 6.5 g/dL (6.3-8.2)
[2019-12-27] MEDS ORDERED: CEFEPIME 2 GM in SODIUM CHLORIDE 0.9% 100 ML IVPB STA (16:28)
[2019-12-27] MEDS ORDERED: VANCOMYCIN IV PER PHARMACY 1 EACH MISC MISCELLANE PRN (16:28)
[2019-12-27 16:29] LABS: MCV 92.9 fL (80.0-100.0)
[2019-12-27 16:31] LABS: INR 4.2 (<1.2); Partial Thromboplastin Time 32.6 sec (22.0-30.0); Prothrombin Time 41.1 sec (9.0-12.0)
[2019-12-27 16:39] LABS: Creatine Kinase MB 9.1 ng/mL (0.0-2.4)
[2019-12-27] MEDS ORDERED: VANCOMYCIN 1,750 MG in SODIUM CHLORIDE 0.9% 500 ML 500 ML IVPB STA (16:43)
[2019-12-27 16:47] LABS: Troponin I 0.198 ng/mL (0.000-0.034)
--- NOTE | 2019-12-27 16:59 | CT ---
EXAMINATION TYPE: CT ChestAbdPelvis w con DATE OF EXAM: 12/27/2019 COMPARISON: CT 03/25/2018 HISTORY: Fall today. Frequent falls. Fever. CT DLP: mGycm Automated exposure control for dose reduction was used. CONTRAST: CT scan of the chest, abdomen and pelvis is performed without Oral Contrast and with IV Contrast, pat ient injected with 100 mL of Isovue 300. FINDINGS: LUNGS: The lungs are remarkable for probable dependent atelectatic changes, there is no concerning pa renchymal mass or nodule identified. Endotracheal tube is present within the tracheal air column in appropriate position There is no pleural effusion or pneumothorax seen. The tracheobronchial tree is patent. MEDIASTINUM: There are no greater than 1 cm hilar or mediastinal lymph nodes. The heart is enlarged. No pericardial effusion is seen. Prominence of pulmonary artery could be indicative of pulmonary art kenton hypertension. There are some coronary artery calcifications. AORTA: Ascending aorta is aneurysmal at 4.1 cm. Proximal descending aorta is 3.2 cm. Aorta at the hi atus measures approximately 2.9 cm.. OTHER: There is a orogastric tube coiled within the stomach, the stomach shows an air-fluid level LIVER/GB: No significant abnormality is appreciated. Low-attenuation of the liver may be due to hepat ic steatosis PANCREAS: No significant abnormality is seen. SPLEEN: No significant abnormality is seen. ADRENALS: No significant abnormality is seen. KIDNEYS: Some minimal perinephric fluid noted on the left. REPRODUCTIVE ORGANS: Prostate is enlarged and shows associated calcifications BOWEL: No significant abnormality is seen. FREE AIR: No Free Air visible. ASCITES: None seen. RETROPERITONEAL ADENOPATHY: No retroperitoneal adenopathy is seen. LYMPH NODES: No greater than 1 cm abdominal or pelvic lymph nodes are appreciated. URINARY BLADDER: Urine distended. PELVIC ADENOPATHY: None visualized. OSSEOUS STRUCTURES: Patient is status post right hip arthroplasty, there is some streak artifact pre sent. Bilateral spondylolysis at L5, is an anterolisthesis grade 1 L5-S1, retrolisthesis grade 1 at L 4-5. There is multilevel spondylosis in the visualized spine. IMPRESSION: Correlate for urinary retention. Dependent atelectatic changes. Endotracheal tube, orogas tric tube in appropriate position. No free fluid or evident fracture, no evident solid organ injury. Cardiomegaly. Aortic aneurysm, consider follow-up, possible pulmonary artery hypertension, additional findings above
[2019-12-27] MEDS ORDERED: TRANEXAMIC ACID 1,000 MG in SODIUM CHLORIDE 0.9% 100 ML IVPB ONE (17:00)
[2019-12-27] MEDS ORDERED: SALINE IV ONE (17:00)
[2019-12-27] MEDS ORDERED: HUMAN PROTHROMBIN COMPLX IV ONE (17:00)
[2019-12-27] MEDS ORDERED: MANNITOL 20% IV ONE (17:00)
[2019-12-27 17:01] LABS: ABG Base Excess 5.7 mmol/L; ABG HCO3 29 mmol/L (21-25); ABG PCO2 37 mmHg (35-45); ABG PH 7.51 (7.35-7.45); ABG PO2 >400 mmHg (83-108); ABG TCO2 30 mmol/L (19-24); Allen Test Performed? Yes
--- NOTE | 2019-12-27 17:09 | CT ---
EXAMINATION TYPE: CT brain cspine wo con DATE OF EXAM: 12/27/2019 COMPARISON: Prior exam 06/08/2014 HISTORY: Fall today. Altered mental status Frequent falls. Fever. CT DLP: mGycm Automated exposure control for dose reduction was used. TECHNIQUE: CT scan of the head and cervical spine are performed without contrast. FINDINGS: There is a large right subdural hematoma causing midline shift, subfalcine herniation is present, there is subarachnoid hemorrhage also present, hemorrhage is present along the region of the fourth ventricle and aqueduct, there is mass effect on the brainstem, there is asymmetric left-sided hydrocephalus. Low-attenuation is present within the periventricular white matter on the right, ther e may be subacute hemorrhage involving the basal ganglia on the right, abnormal low attenuation prese nt within the frontal white matter immediately adjacent to the body of the corpus callosum. Small foc al area of increased density present adjacent to the frontal horn of the left lateral ventricle. Subd ural hemorrhage measures approximately 2 cm in greatest thickness on coronal image #21. Calvarium is intact. Orbits show symmetric appearance. Hemorrhage courses along the tentorium and falx. Cervical spine is visualized in its entirety from C1 through upper thoracic levels and demonstrates satisfactory alignment without evidence of acute fracture or dislocation. Prevertebral soft tissue a ppears within normal limits. The C1-C2 articulation is unremarkable. There is multilevel spondylosi s. Loss of disc height present at intervertebral levels. Endotracheal tube noted incidentally. There is multilevel foraminal encroachment. IMPRESSION: Subdural and subarachnoid hemorrhage with mass effect, subfalcine herniation possibly ass ociated cerebral infarcts. Case discussed with referring clinician at the time of interpretation. There is no acute fracture or dislocation evident in the cervical spine.
--- NOTE | 2019-12-27 17:11 | XR ---
EXAMINATION TYPE: XR chest 1V portable DATE OF EXAM: 12/27/2019 COMPARISON: Prior chest x-ray same dated earlier time HISTORY: Intubated TECHNIQUE: Single frontal view of the chest is obtained. FINDINGS: No significant interval change compared to prior exam. Patient is intubated, there is a ga s-distended stomach, orogastric tube is coiled within the stomach. No pneumothorax or pleural effusio n. There is cardiomegaly. Persistent mediastinal widening. IMPRESSION: No significant change compared to prior exam..
[2019-12-27 18:15] LABS: Amorphous Sediment,Urine Moderate /hpf; Appearance,Urine Clear (Clear); Bacteria,Urine Rare /hpf; Bilirubin,Urine Negative (Negative); Blood,Urine Small (Negative); Color,Urine Yellow; Glucose,Urine (UA) Negative (Negative); Hyaline Casts,Urine 10 /lpf (0-2); Ketones,Urine 2+ (Negative); Leukocyte Esterase,Urine Negative (Negative); Mucus,Urine Rare /hpf; Nitrite,Urine Negative (Negative); Protein,Urine 2+ (Negative); RBC,Urine 1 /hpf (0-5); Specific Gravity,Urine 1.017 (1.001-1.035); Urobilinogen,Urine <2.0 mg/dL (<2.0); WBC,Urine 4 /hpf (0-5)
[2019-12-27 18:16] LABS: Amphetamine Screen,Urine Not Detected (NotDetected); Barbiturate Screen,Urine Not Detected (NotDetected); Benzodiazepines Screen,Urine Not Detected (NotDetected); Cocaine Screen,Urine Not Detected (NotDetected); Methadone Screen, Urine Not Detected (NotDetected); Opiate Screen,Urine Not Detected (NotDetected); Oxycodone Screen, Urine Not Detected (NotDetected); Phencyclidine Screen,Urine Not Detected (NotDetected); Tricyclic Antidepressant,Urine Detected (NotDetected); Urn Cannabinoid Scrn Not Detected (NotDetected)
== END 2019-12-27 17:23 | disposition short-term general hospital (02) ==
LOC: EC 15:44
DX: S06.6X9A Traumatic subarachnoid hemorrhage with loss of consciousness of unspecified duration, initial encounter (principal); R65.10 Systemic inflammatory response syndrome (SIRS) of non-infectious origin without acute organ dysfunction; I48.20 Chronic atrial fibrillation, unspecified; I11.0 Hypertensive heart disease with heart failure; I50.9 Heart failure, unspecified; R00.0 Tachycardia, unspecified; Z79.01 Long term (current) use of anticoagulants; Z79.899 Other long term (current) drug therapy; Z20.828 Contact with and (suspected) exposure to other viral communicable diseases; Z85.828 Personal history of other malignant neoplasm of skin; Z96.641 Presence of right artificial hip joint; Z85.46 Personal history of malignant neoplasm of prostate; Z88.8 Allergy status to other drugs, medicaments and biological substances; Z87.891 Personal history of nicotine dependence
CPT/HCPCS: 99291; 96365; 96368; 96375 ×2; 31500; 36415; 86900; 86901; 80053; 82150; 82550; 82553; 82805; 83605; 83690; 84484; 85025; 85610; 85730; 86850; 81001; 87040; 80306; 72170; 71045; 72125; 70450; 71260; 74177; L0120; G0480; U0003; J0692; C9132; Q9967; 80320; 94002